=== PATIENT | female | born 1955 | race Caucasian/White ===

== ENCOUNTER 2020-03-17 14:44 | Inpatient (IN) ==
[2020-03-17] MEDS ORDERED: TUSSIONEX PENNKINETIC SUSP PO PRN (15:59)
[2020-03-17] MEDS ORDERED: LEVAQUIN PREMIX IV 500 MG 500 MG/100 ML BAG IV SCH (16:00)
[2020-03-17] MEDS ORDERED: VENTOLIN or PROAIR HFA ONE (16:28)
--- NOTE | 2020-03-17 16:50 | RAD ---
HISTORYSOB, COVID+STUDYCHEST, 1 VIEWCOMPARISONPrevious chest radiograph from 03/15/2020FINDINGSHeart size and pulmonary vasculature are normal. The previously described left midlung infiltrate is now more prominent. In addition there has been interval development of a faint infiltrate in the right perihilar region. No significant effusion on either side. Bony thorax is unremarkable.IMPRESSION1. Worsening left midlung infiltrate, now extending to the left base.2. Interval development of faint infiltrate in the right perihilar regionElectronically signed by: BLOSSOM RESTREPO (Mar 17, 2020 16:48:55)
[2020-03-17] MEDS ORDERED: PROVENTIL NEB TX 0.083% 2.5MG/ 3ML IN SCH (17:00)
[2020-03-17] MEDS ORDERED: ROBITUSSIN DM PO SCH (17:00)
[2020-03-17] MEDS ORDERED: FORTAZ or TAZICEF VIAL INJ 1 G in NS 100 ML IV + SPIKE MINIBAG* 100 ML IV SCH (17:00)
[2020-03-17 17:03] LABS: ABG ALLEN TEST POS; ABG BASE EXCESS 2.3 mmol/L (-2.0-2.0); ABG HCO3 24.5 mmol/L (22-26)
[2020-03-17 17:09] LABS: BASOPHILS % (AUTO) 0.2 % (0.2-1.0); EOSINOPHILS % (AUTO) 0.3 % (0.9-2.9); HEMATOCRIT 43.2 % (36.0-47.0); HEMOGLOBIN 14.7 g/dL (12.0-16.0); LYMPHOCYTES # (AUTO) 0.7 X10^3/uL (1.3-2.9); LYMPHOCYTES % (AUTO) 16.9 % (21.0-51.0); MEAN CORPUSCULAR HEMOGLOBIN 29.8 pg (27.0-34.0); MEAN CORPUSCULAR HGB CONC 33.9 g/dL (33.0-35.0); MEAN CORPUSCULAR VOLUME 87.7 fL (80.0-100.0); MEAN PLATELET VOLUME 9.7 fL (7.4-11.0); MONOCYTES # (AUTO) 0.3 x10^3/uL (0.3-0.8); MONOCYTES % (AUTO) 6.7 % (0.0-13.0); NEUTROPHILS % (AUTO) 75.9 % (42.0-75.0); PLATELET COUNT 136 X10^3/uL (150.0-450.0); RED BLOOD COUNT 4.93 X10^6/uL (3.5-5.4); RED CELL DISTRIBUTION WIDTH 14.6 % (11.6-16.5); WHITE BLOOD COUNT 3.9 X10^3/uL (3.6-10.0)
[2020-03-17 17:13] LABS: ALANINE AMINOTRANSFERASE 28 Units/L (12-78); ALBUMIN 3.6 g/dL (3.4-5.0); ALKALINE PHOSPHATASE 65 Units/L (46-116); ASPARTATE AMINO TRANSFERASE 27 Units/L (15-37); BLOOD UREA NITROGEN 7 mg/dL (7-18); CALCIUM 8.2 mg/dL (8.5-10.1); CARBON DIOXIDE 30.7 mmol/L (21-32); CHLORIDE 102 mmol/L (98-107); CREATININE 0.96 mg/dL (0.55-1.02); SODIUM 140 mmol/L (136-145); TOTAL PROTEIN 7.4 g/dL (6.4-8.2); eGFR NON BLACK RACES > 60 (>60)
[2020-03-17] MEDS: VENTOLIN or PROAIR HFA IN PRN ×2 (17:15→21:25)
[2020-03-17] MEDS ORDERED: NS 1/2 1000 ML IV 1,000 ML IV ONE (17:20)
[2020-03-17 17:42] LABS: ERYTHROCYTE SEDIMENTATION RATE 16 MM/HOUR (0-20)
[2020-03-17] MEDS: NS 1/2 1000 ML IV 1,000 ML IV SCH (17:44)
[2020-03-17] MEDS: TYLENOL 325 MG TAB PO PRN (18:36)
[2020-03-17] MEDS: PLAQUENIL PO SCH (20:50)
[2020-03-17] MEDS: ZITHROMAX INJ 500 MG VIAL 500 MG in NS 250 ML IV 250 ML IV SCH (20:50)
[2020-03-17] MEDS: TUSSIONEX PENNKINETIC SUSP PO SCH (20:55)
[2020-03-17] MEDS: TESSALON PERLES PO SCH (21:00)
[2020-03-17] MEDS ORDERED: TUSSIONEX PENNKINETIC SUSP PO SCH (22:00)
[2020-03-18] MEDS: NS 1/2 1000 ML IV 1,000 ML IV SCH ×2 (04:19→18:36)
[2020-03-18] MEDS: TYLENOL 325 MG TAB PO PRN ×2 (04:55→17:52)
[2020-03-18] MEDS: TESSALON PERLES PO SCH ×3 (05:00→21:21)
[2020-03-18 06:23] LABS: BASOPHILS % (AUTO) 0.4 % (0.2-1.0); EOSINOPHILS % (AUTO) 0.1 % (0.9-2.9); HEMATOCRIT 38.2 % (36.0-47.0); HEMOGLOBIN 13.2 g/dL (12.0-16.0); LYMPHOCYTES % (AUTO) 28.6 % (21.0-51.0); MEAN CORPUSCULAR HEMOGLOBIN 29.9 pg (27.0-34.0); MEAN CORPUSCULAR HGB CONC 34.6 g/dL (33.0-35.0); MEAN CORPUSCULAR VOLUME 86.4 fL (80.0-100.0); MEAN PLATELET VOLUME 9.7 fL (7.4-11.0); MONOCYTES # (AUTO) 0.2 x10^3/uL (0.3-0.8); MONOCYTES % (AUTO) 7.2 % (0.0-13.0); NEUTROPHILS # (AUTO) 2.1 x10^3/uL (2.2-4.8); NEUTROPHILS % (AUTO) 63.7 % (42.0-75.0); PLATELET COUNT 128 X10^3/uL (150.0-450.0); RED BLOOD COUNT 4.42 X10^6/uL (3.5-5.4); RED CELL DISTRIBUTION WIDTH 14.2 % (11.6-16.5); WHITE BLOOD COUNT 3.3 X10^3/uL (3.6-10.0)
[2020-03-18 06:34] LABS: ALANINE AMINOTRANSFERASE 23 Units/L (12-78); ALBUMIN 2.9 g/dL (3.4-5.0); ALKALINE PHOSPHATASE 50 Units/L (46-116); ASPARTATE AMINO TRANSFERASE 29 Units/L (15-37); BLOOD UREA NITROGEN 5 mg/dL (7-18); CALCIUM 7.5 mg/dL (8.5-10.1); CARBON DIOXIDE 26.3 mmol/L (21-32); CHLORIDE 103 mmol/L (98-107); COR CA(FOR HYPOALB) 8.4 mg/dL (8.5-10.1); CREATININE 0.93 mg/dL (0.55-1.02); SODIUM 139 mmol/L (136-145); TOTAL PROTEIN 6.2 g/dL (6.4-8.2); eGFR NON BLACK RACES > 60 (>60)
[2020-03-18] MEDS ORDERED: NS 100 ML IV + SPIKE MINIBAG* 100 ML IV ONE (08:38)
[2020-03-18] MEDS ORDERED: FORTAZ or TAZICEF VIAL INJ ONE (08:39)
[2020-03-18] MEDS: FORTAZ or TAZICEF VIAL INJ 1 G in NS 100 ML IV + SPIKE MINIBAG* 100 ML IV SCH ×3 (08:51→21:21)
[2020-03-18] MEDS: TUSSIONEX PENNKINETIC SUSP PO SCH ×2 (08:52→20:45)
[2020-03-18] MEDS: PLAQUENIL PO SCH ×2 (08:52→20:45)
[2020-03-18] MEDS: ZITHROMAX INJ 500 MG VIAL 500 MG in NS 250 ML IV 250 ML IV SCH (09:53)
[2020-03-18] MEDS: PAXIL PO SCH (11:23)
[2020-03-18] MEDS: SYNTHROID 75 mcg TAB PO SCH (11:23)
[2020-03-18] MEDS ORDERED: PROVENTIL NEB TX 0.083% 2.5MG/ 3ML NEB PRN (12:27)
[2020-03-18] MEDS ORDERED: PROVENTIL NEB TX 0.083% 2.5MG/ 3ML IN PRN (12:29)
[2020-03-18] MEDS ORDERED: PROVENTIL NEB TX 0.083% 2.5MG/ 3ML NEB SCH (13:00)
[2020-03-18] MEDS ORDERED: PROVENTIL NEB TX 0.083% 2.5MG/ 3ML IN SCH (13:00)
[2020-03-18] MEDS: VENTOLIN or PROAIR HFA IN SCH ×2 (13:35→17:10)
[2020-03-18] MEDS ORDERED: NS 1/2 1000 ML IV 1,000 ML IV ONE (18:35)
[2020-03-19] MEDS: TYLENOL 325 MG TAB PO PRN ×3 (02:25→15:30)
[2020-03-19] MEDS ORDERED: ROBITUSSIN AC ONE (02:33)
[2020-03-19] MEDS ORDERED: ROBITUSSIN (PLAIN) ONE (02:36)
[2020-03-19] MEDS: ROBITUSSIN (PLAIN) PO PRN ×2 (02:45→17:46)
[2020-03-19 05:23] LABS: BASOPHILS % (AUTO) 0.3 % (0.2-1.0); EOSINOPHILS % (AUTO) 0.2 % (0.9-2.9); HEMATOCRIT 37.8 % (36.0-47.0); HEMOGLOBIN 12.8 g/dL (12.0-16.0); LYMPHOCYTES # (AUTO) 0.8 X10^3/uL (1.3-2.9); LYMPHOCYTES % (AUTO) 17.4 % (21.0-51.0); MEAN CORPUSCULAR HEMOGLOBIN 29.5 pg (27.0-34.0); MEAN CORPUSCULAR HGB CONC 33.8 g/dL (33.0-35.0); MEAN CORPUSCULAR VOLUME 87.2 fL (80.0-100.0); MEAN PLATELET VOLUME 9.7 fL (7.4-11.0); MONOCYTES # (AUTO) 0.3 x10^3/uL (0.3-0.8); MONOCYTES % (AUTO) 5.2 % (0.0-13.0); NEUTROPHILS # (AUTO) 3.7 x10^3/uL (2.2-4.8); NEUTROPHILS % (AUTO) 76.9 % (42.0-75.0); PLATELET COUNT 132 X10^3/uL (150.0-450.0); RED BLOOD COUNT 4.33 X10^6/uL (3.5-5.4); RED CELL DISTRIBUTION WIDTH 14.4 % (11.6-16.5); WHITE BLOOD COUNT 4.8 X10^3/uL (3.6-10.0)
[2020-03-19 05:37] LABS: ALANINE AMINOTRANSFERASE 26 Units/L (12-78); ALBUMIN 2.7 g/dL (3.4-5.0); ALKALINE PHOSPHATASE 49 Units/L (46-116); ASPARTATE AMINO TRANSFERASE 33 Units/L (15-37); BLOOD UREA NITROGEN 4 mg/dL (7-18); CALCIUM 7.4 mg/dL (8.5-10.1); CARBON DIOXIDE 27.5 mmol/L (21-32); CHLORIDE 104 mmol/L (98-107); COR CA(FOR HYPOALB) 8.4 mg/dL (8.5-10.1); COR NA(FOR HYPERGLY) 139 mmol/L (136-145); CREATININE 0.77 mg/dL (0.55-1.02); SODIUM 139 mmol/L (136-145); TOTAL PROTEIN 6.1 g/dL (6.4-8.2); eGFR NON BLACK RACES > 60 (>60)
[2020-03-19] MEDS ORDERED: MICRO K EXTEN CAP 10 MEQ PO PRN (05:50)
[2020-03-19] MEDS ORDERED: K-RIDER 10 MEQ/NS 100 ML 10 MEQ/100 ML BAG IV PRN (05:50)
[2020-03-19] MEDS ORDERED: KLOR-CON PO PRN (05:50)
[2020-03-19] MEDS ORDERED: POTASSIUM CHL 60 MEQ/NS 0.45% 500 ML IV PRN (05:50)
[2020-03-19] MEDS ORDERED: POTASSIUM CHL 40 MEQ/NS 0.45% 500 ML IV PRN (05:50)
[2020-03-19] MEDS ORDERED: POTASSIUM CHLORIDE LIQ 20 MEQ UDC PO PRN (05:50)
[2020-03-19] MEDS: FORTAZ or TAZICEF VIAL INJ 1 G in NS 100 ML IV + SPIKE MINIBAG* 100 ML IV SCH ×3 (05:53→22:51)
[2020-03-19] MEDS: TESSALON PERLES PO SCH ×3 (05:54→22:34)
[2020-03-19] MEDS ORDERED: MAGNESIUM SULFATE 1 GRAM/100 mL PREMIX 2 G/200 ML BAG IV ONE (06:18)
[2020-03-19] MEDS ORDERED: K-DUR TAB 20 MEQ PO ONE (06:18)
[2020-03-19] MEDS: MAGNESIUM SULFATE 1 GRAM/100 mL PREMIX 1 GM/100 ML BAG IV PRN ×2 (06:24→07:30)
[2020-03-19] MEDS: K-DUR TAB 20 MEQ PO PRN (06:38)
[2020-03-19] MEDS: NS 1/2 1000 ML IV 1,000 ML IV SCH ×2 (06:39→20:47)
[2020-03-19] MEDS: PLAQUENIL PO SCH ×2 (08:20→22:50)
[2020-03-19] MEDS: PAXIL PO SCH (08:20)
[2020-03-19] MEDS: SYNTHROID 75 mcg TAB PO SCH (08:20)
[2020-03-19] MEDS: TUSSIONEX PENNKINETIC SUSP PO SCH ×2 (08:21→22:33)
[2020-03-19] MEDS: ZITHROMAX INJ 500 MG VIAL 500 MG in NS 250 ML IV 250 ML IV SCH (09:10)
[2020-03-19] MEDS ORDERED: NS 1/2 1000 ML IV 1,000 ML IV ONE (17:59)
[2020-03-19] MEDS: ZOFRAN INJ 4 MG VIAL IVP PRN (23:10)
[2020-03-20] MEDS ORDERED: RESTORIL CAP 15 MG PO ONE (00:13)
[2020-03-20] MEDS: RESTORIL CAP 15 MG PO PRN ×2 (00:40→21:49)
[2020-03-20] MEDS: FORTAZ or TAZICEF VIAL INJ 1 G in NS 100 ML IV + SPIKE MINIBAG* 100 ML IV SCH ×3 (05:37→21:48)
[2020-03-20] MEDS: TYLENOL 325 MG TAB PO PRN ×2 (05:38→15:45)
[2020-03-20] MEDS: TESSALON PERLES PO SCH ×3 (05:38→21:48)
[2020-03-20 06:57] LABS: BASOPHILS % (AUTO) 0.2 % (0.2-1.0); HEMATOCRIT 39.2 % (36.0-47.0); HEMOGLOBIN 13.4 g/dL (12.0-16.0); LYMPHOCYTES % (AUTO) 16.3 % (21.0-51.0); MEAN CORPUSCULAR HEMOGLOBIN 29.6 pg (27.0-34.0); MEAN CORPUSCULAR HGB CONC 34.1 g/dL (33.0-35.0); MEAN CORPUSCULAR VOLUME 86.7 fL (80.0-100.0); MEAN PLATELET VOLUME 9.5 fL (7.4-11.0); MONOCYTES # (AUTO) 0.3 x10^3/uL (0.3-0.8); MONOCYTES % (AUTO) 4.7 % (0.0-13.0); NEUTROPHILS # (AUTO) 4.8 x10^3/uL (2.2-4.8); NEUTROPHILS % (AUTO) 78.8 % (42.0-75.0); PLATELET COUNT 155 X10^3/uL (150.0-450.0); RED BLOOD COUNT 4.52 X10^6/uL (3.5-5.4); RED CELL DISTRIBUTION WIDTH 14.7 % (11.6-16.5); WHITE BLOOD COUNT 6.1 X10^3/uL (3.6-10.0)
--- NOTE | 2020-03-20 07:04 | RAD ---
HISTORYPNEUMONIASTUDYSingle-view [id number]/23/2020FINDINGSThe trachea is midline. The cardiac silhouette is accentuated by portable technique. Patchy infiltrates throughout the right and left shanika thorax are observed a markedly increased when compared to prior examination consistent with atypical multifocal pneumonia.. The bony thorax is unremarkable.IMPRESSIONWorsening atypical multifocal pneumonia with patchy infiltrates throughout the right and left hemothorax.Electronically signed by: HAYDEN NOLEN (Mar 20, 2020 07:03:03)
[2020-03-20 07:05] LABS: ALANINE AMINOTRANSFERASE 24 Units/L (12-78); ALBUMIN 2.8 g/dL (3.4-5.0); ALKALINE PHOSPHATASE 66 Units/L (46-116); ASPARTATE AMINO TRANSFERASE 40 Units/L (15-37); BLOOD UREA NITROGEN 4 mg/dL (7-18); CALCIUM 7.5 mg/dL (8.5-10.1); CARBON DIOXIDE 26.3 mmol/L (21-32); CHLORIDE 102 mmol/L (98-107); COR CA(FOR HYPOALB) 8.5 mg/dL (8.5-10.1); CREATININE 0.91 mg/dL (0.55-1.02); MAGNESIUM 1.9 mg/dL (1.7-2.9); SODIUM 137 mmol/L (136-145); TOTAL PROTEIN 6.8 g/dL (6.4-8.2); eGFR NON BLACK RACES > 60 (>60)
[2020-03-20 08:43] LABS: ABG ALLEN TEST POS; ABG HCO3 27.1 mmol/L (22-26)
[2020-03-20] MEDS: PAXIL PO SCH (09:10)
[2020-03-20] MEDS: ZITHROMAX INJ 500 MG VIAL 500 MG in NS 250 ML IV 250 ML IV SCH (09:10)
[2020-03-20] MEDS: TUSSIONEX PENNKINETIC SUSP PO SCH ×2 (09:10→21:48)
[2020-03-20] MEDS: PLAQUENIL PO SCH ×2 (09:10→21:48)
[2020-03-20] MEDS: SYNTHROID 75 mcg TAB PO SCH (09:10)
[2020-03-20] MEDS: NS 1/2 1000 ML IV 1,000 ML IV SCH ×2 (10:15→13:04)
[2020-03-20] MEDS: K-DUR TAB 20 MEQ PO PRN (10:40)
[2020-03-20] MEDS: MAGNESIUM SULFATE 1 GRAM/100 mL PREMIX 1 GM/100 ML BAG IV PRN ×2 (12:00→15:50)
[2020-03-20] MEDS ORDERED: NS 1/2 1000 ML IV 1,000 ML IV ONE (12:51)
[2020-03-20] MEDS: ROBITUSSIN (PLAIN) PO PRN (16:05)
[2020-03-20] MEDS: COLACE CAP 100 MG PO SCH (21:48)
--- NOTE | 2020-03-20 21:55 | DR.UPDATE ---
H&P Update History and Physical Update: History and Physical reviewed and patient examined. Changes noted: Yes with the following: PRESENTED WITH COMPLAINTS WITH PERSISTENT COUGH AND MODERATE SHORTNESS OF BREATH. SHE WAS TESTED FOR COVID-19 APPROXIMATELY 2 WEEKS AGO AND TESTED NEGATIVE. SHE WAS RETESTED ONE WEEK AGO AND WAS REPORTED TO BE POSITIVE. SHE IS EMPLOYED AT A [employer] AND REPORTS BEING AROUND OTHER POSTIVE CO-WORKERS. A CHEST XRAY WAS OBTAINED ON 03/15 AND REVEALED A LEFT MIDLUNG INFILTRATE. SHE WAS ADMITTED FOR FURTHER EVALUATION AND TREATMENT TODAY AFTER SYMPTOMS PERSISTED. ON ARRIVAL, VITALS WERE 101.1-96-17-92%-129/70. LABS WERE OBTAINED. ABNORMAL LAB VALUES INCLUDE THE FOLLOWING: PLT COUNT 136, CALCIUM 8.2, CRP 84.0. ABG REVEALED: PH 7.520, PC02 30.0, P02 66.0, HC03 24.5, 02 SATURATION 95.0, BASE EXCESS 2.3. BLOOD CULTURE ARE PENDING. A CHEST XRAY WAS OBTAINED AND REVEALED: WORSENING LEFT MID-LUNG INFILTRATE, NOW EXTENDNG TO THE LEFT BASE. INTERVAN DEVELOPMENT OF FAINT INFILTRATE IN THE RIGHT PERIHILAR REGION. SHE WAS STARTED ON 1/2NS AT 75 ML/HR, AZITHROMYCIN 500MG IV DAILY, FORTAZ 1G IV TID, PLAQUENIL 200MG PO BID, ALBUTEROL 2 PUFFS QID, AND HOME MEDICATIONS WERE RESUMED. OTHERWISE, WE WILL FOLLOW UP WITH AM LABS AND CONTINUE TO MONITOR. Prescription drug monitoring program results: PDMP was not reviewed H&P Reviewed: Yes Patient was examined?: Yes
[2020-03-21] MEDS: TYLENOL 325 MG TAB PO PRN (01:09)
[2020-03-21] MEDS: ROBITUSSIN (PLAIN) PO PRN (01:10)
[2020-03-21] MEDS: TESSALON PERLES PO SCH ×3 (05:25→21:33)
[2020-03-21] MEDS: FORTAZ or TAZICEF VIAL INJ 1 G in NS 100 ML IV + SPIKE MINIBAG* 100 ML IV SCH ×3 (05:25→22:04)
--- NOTE | 2020-03-21 06:02 | RAD ---
STUDY: CHEST, 1 VIEWCOMPARISON: March 20, 2020HISTORY: PNEUMONIAFINDINGS:There is persistent diffuse alveolar airspace disease throughout the right left lung which is unchanged from the prior study and worrisome for ARDS. No pleural effusion or gross pneumothorax is seen. The cardiomediastinal contour is stable.IMPRESSION:Overall, no significant change from prior study.Electronically signed by: Jeffrey Barros (Mar 21, 2020 06:01:37)
[2020-03-21 06:35] LABS: BASOPHILS % (AUTO) 0.2 % (0.2-1.0); HEMATOCRIT 39.5 % (36.0-47.0); HEMOGLOBIN 13.3 g/dL (12.0-16.0); LYMPHOCYTES # (AUTO) 0.8 X10^3/uL (1.3-2.9); LYMPHOCYTES % (AUTO) 8.6 % (21.0-51.0); MEAN CORPUSCULAR HEMOGLOBIN 29.4 pg (27.0-34.0); MEAN CORPUSCULAR HGB CONC 33.6 g/dL (33.0-35.0); MEAN CORPUSCULAR VOLUME 87.3 fL (80.0-100.0); MEAN PLATELET VOLUME 9.5 fL (7.4-11.0); MONOCYTES # (AUTO) 0.4 x10^3/uL (0.3-0.8); MONOCYTES % (AUTO) 3.8 % (0.0-13.0); NEUTROPHILS # (AUTO) 8.2 x10^3/uL (2.2-4.8); NEUTROPHILS % (AUTO) 87.4 % (42.0-75.0); PLATELET COUNT 164 X10^3/uL (150.0-450.0); RED BLOOD COUNT 4.53 X10^6/uL (3.5-5.4); RED CELL DISTRIBUTION WIDTH 14.6 % (11.6-16.5); WHITE BLOOD COUNT 9.3 X10^3/uL (3.6-10.0)
[2020-03-21 06:59] LABS: ALANINE AMINOTRANSFERASE 27 Units/L (12-78); ALBUMIN 2.5 g/dL (3.4-5.0); ALKALINE PHOSPHATASE 71 Units/L (46-116); ASPARTATE AMINO TRANSFERASE 45 Units/L (15-37); BLOOD UREA NITROGEN 5 mg/dL (7-18); CALCIUM 7.5 mg/dL (8.5-10.1); CARBON DIOXIDE 27.6 mmol/L (21-32); CHLORIDE 103 mmol/L (98-107); COR CA(FOR HYPOALB) 8.7 mg/dL (8.5-10.1); CREATININE 0.84 mg/dL (0.55-1.02); MAGNESIUM 2.5 mg/dL (1.7-2.9); SODIUM 138 mmol/L (136-145); TOTAL PROTEIN 6.6 g/dL (6.4-8.2); eGFR NON BLACK RACES > 60 (>60)
[2020-03-21 07:39] LABS: ERYTHROCYTE SEDIMENTATION RATE 43 MM/HOUR (0-20)
[2020-03-21] MEDS: TUSSIONEX PENNKINETIC SUSP PO SCH ×2 (08:00→21:08)
[2020-03-21] MEDS: ZITHROMAX INJ 500 MG VIAL 500 MG in NS 250 ML IV 250 ML IV SCH (08:00)
[2020-03-21] MEDS: PLAQUENIL PO SCH ×2 (08:00→21:08)
[2020-03-21] MEDS: SYNTHROID 75 mcg TAB PO SCH (08:00)
[2020-03-21] MEDS: PAXIL PO SCH (08:00)
[2020-03-21] MEDS ORDERED: ASCORBIC ACID INJ MULTI-DOSE VIAL IM SCH (09:30)
[2020-03-21] MEDS ORDERED: VITAMIN A PO SCH (09:30)
[2020-03-21] MEDS: NS 1/2 1000 ML IV 1,000 ML IV SCH ×2 (09:55→13:33)
--- NOTE | 2020-03-21 11:09 | PCM.PROG ---
Progress Note - Progress Note for Day of Date of Exam: 03/19/20 - Subjective Subjective: WAS ADMITTED FOR PNEUMONIA. SHE IS COVID-19 POSITIVE. TODAY, SHE IS ALERT AND ORIENTED, LYING IN BED ON MORNING ROUNDS. SHE CONTINUES WITH COMPLAINTS OF COUGH AND SHORTNESS OF BREATH. SHE REPORTS THAT SHORTNESS OF BREATH IS WORSE UPON AMBULATING. SHE CONTINUES TO BE FEBRILE AND ALSO REPORTS A DECREASED APPETITE AND NAUSEA. ON EXAMINATION, HEART IS REGULAR IN RATE AND RHYTHM. BILATERA LUNGS ARE NOTED WITH SCATTERED WHEEZING AND RHONCHI. ABDOMEN IS ROUND, SOFT, AND NON-TENDER WITH NORMAL BOWEL SOUNDS IN ALL QUADRANTS. HER VITALS THIS MORNING ARE: 100.8-82-16-96%(HEATED HIGH FLOW),113/58. LABS WERE OBTAINED. ABNORMAL LAB VALUES INCLUDE THE FOLLOWING: PLT COUNT 132, POTASSIUM 3.0, BUN 4, GLUCOSE 111, CALCIUM 7.4, TOTAL BILI 0.10, TOTAL PROTEIN 6.1, ALBUMIN 2.7. BLOOD CULTURES ARE PENDING. SHE IS CURRENTLY RECEIVING 1/2NS AT 75 ML/HR, AZITHROMYCIN 500MG IV DAILY, FORTAZ 1G IV TID, PLAQUENIL 200MG PO BID, ALBUTEROL 2 PUFFS QID, AND HOME MEDICATIONS WERE RESUMED. WE WILL START THE POTASSIUM AND MAGNESIUM PROTOCOLS, ZOFRAN 4MG IV Q6H PRN, AND ROBITUSSIM TODAY. OTHERWISE, WE PLAN TO FOLLOW UP WITH AM LABS AND CHEST XRAY AND CONTINUE TO MONITOR. - Past Medical Family Social History Past Med/Fam/Surg Hx: No changes since H&P Allergies: Allergies No Known Drug Allergies Allergy (Verified 03/15/20 22:35) - Review of Systems ROS: No change since H&P - Vital Signs and I&O's Vital Signs: Temperature 99.5 F Pulse Rate 80 Respiratory Rate 27 Blood Pressure 138/94 O2 Sat by Pulse Oximetry 92 Intake and Output: Intake & Output 03/18/20 03/19/20 03/20/20 03/21/20 11:59 11:59 11:59 11:59 Intake Total 1884 / 1884 2950 / 2950 2150 / 2150 1790 / 1790 Output Total 600 / 600 1200 / 1200 Balance 1884 / 1885 2350 / 2350 950 / 950 1790 / 1790 - Physical Exam Oriented: Normal Eyes: Normal Ear: Normal Nose: Normal Throat: Normal Respiratory: Generalized, Wheezes Cardiovascular: Normal. negative: S3, S4, Murmur : Normal Auscultation: Bowel Sounds: Normal Palpation: Normal Tenderness: Normal Skin: Normal Musculoskeletal: Normal Psychiatric: Normal Mood Description: Calm Affect: Normal Speech Pattern: Clear, Appropriate - Laboratory and Diagnostics Result Diagrams: 03/21/20 05:48 03/21/20 05:48 Labs: 03/17/20 16:42 Blood Blood Culture - Preliminary 03/17/20 16:40 Blood Blood Culture - Preliminary Laboratory WBC 9.3 X10^3/uL (3.6-10.0) 03/21/20 05:48 RBC 4.53 X10^6/uL (3.5-5.4) 03/21/20 05:48 Hgb 13.3 g/dL (12.0-16.0) 03/21/20 05:48 Hct 39.5 % (36.0-47.0) 03/21/20 05:48 MCV 87.3 fL (80.0-100.0) 03/21/20 05:48 MCH 29.4 pg (27.0-34.0) 03/21/20 05:48 MCHC 33.6 g/dL (33.0-35.0) 03/21/20 05:48 RDW 14.6 % (11.6-16.5) 03/21/20 05:48 Plt Count 164 X10^3/uL (150.0-450.0) 03/21/20 05:48 MPV 9.5 fL (7.4-11.0) 03/21/20 05:48 Neut % (Auto) 87.4 % (42.0-75.0) H 03/21/20 05:48 Lymph % (Auto) 8.6 % (21.0-51.0) L 03/21/20 05:48 [place] % (Auto) 3.8 % (0.0-13.0) 03/21/20 05:48 Eos % (Auto) 0.0 % (0.9-2.9) L 03/21/20 05:48 Baso % (Auto) 0.2 % (0.2-1.0) 03/21/20 05:48 Neut # (Auto) 8.2 x10^3/uL (2.2-4.8) H 03/21/20 05:48 Lymph # (Auto) 0.8 X10^3/uL (1.3-2.9) L 03/21/20 05:48 [place] # (Auto) 0.4 x10^3/uL (0.3-0.8) 03/21/20 05:48 Eos # (Auto) 0.0 x10^3/uL (0.0-0.2) 03/21/20 05:48 Baso # (Auto) 0.0 X10^3/uL (0.0-0.1) 03/21/20 05:48 Absolute Nucleated RBC 0.0 /100WBC 03/21/20 05:48 ESR 43 MM/HOUR (0-20) H 03/21/20 05:48 Sample Site Right radial 03/20/20 08:35 ABG pH 7.450 (7.35-7.45) 03/20/20 08:35 ABG pCO2 39.0 mmHg (35.0-45.0) 03/20/20 08:35 ABG pO2 75.0 mmHg (80.0-100.0) L 03/20/20 08:35 ABG HCO3 27.1 mmol/L (22-26) H 03/20/20 08:35 ABG O2 Saturation 96.0 % (90-100) 03/20/20 08:35 ABG Base Excess 3.0 mmol/L (-2.0-2.0) H 03/20/20 08:35 Cabrera Test Pos 03/20/20 08:35 A-a Gradient 233.0 mmHg 03/20/20 08:35 FiO2 50.0 03/20/20 08:35 Blood Gas Comments Diego well aw 03/20/20 08:35 Sodium 138 mmol/L (136-145) 03/21/20 05:48 Corrected Sodium TNP 03/21/20 05:48 Potassium 4.1 mmol/L (3.5-5.1) 03/21/20 05:48 Chloride 103 mmol/L (98-107) 03/21/20 05:48 Carbon Dioxide 27.6 mmol/L (21-32) 03/21/20 05:48 BUN 5 mg/dL (7-18) L 03/21/20 05:48 Creatinine 0.84 mg/dL (0.55-1.02) 03/21/20 05:48 Est GFR (MDRD) Af Amer > 60 (>60) 03/21/20 05:48 Est GFR (MDRD) Non-Af > 60 (>60) 03/21/20 05:48 Glucose 105 mg/dL (65-99) H 03/21/20 05:48 Calcium 7.5 mg/dL (8.5-10.1) L 03/21/20 05:48 Corrected Calcium 8.7 mg/dL (8.5-10.1) 03/21/20 05:48 Magnesium 2.5 mg/dL (1.7-2.9) 03/21/20 05:48 Total Bilirubin 0.30 mg/dL (0.2-1.0) 03/21/20 05:48 AST 45 Units/L (15-37) H 03/21/20 05:48 ALT 27 Units/L (12-78) 03/21/20 05:48 Alkaline Phosphatase 71 Units/L (46-116) 03/21/20 05:48 C-Reactive Protein 202.30 mg/L (0-3.0) H 03/21/20 05:48 Total Protein 6.6 g/dL (6.4-8.2) 03/21/20 05:48 Albumin 2.5 g/dL (3.4-5.0) L 03/21/20 05:48 Globulin 4.1 g/dL (2.5-4.5) 03/21/20 05:48 Albumin/Globulin Ratio 0.6 Ratio (1.1-2.1) L 03/21/20 05:48 - Plan (1) COVID-19 virus infection Status: Acute Plan: 1/2NS AT 75 ML/HR, AZITHROMYCIN 500MG IV DAILY, FORTAZ 1G IV TID, PLAQUENIL 200MG PO BID, ALBUTEROL 2 PUFFS QID, AND HOME MEDICATIONS WERE RESUMED (2) Pneumonia Status: Acute Qualifiers: Pneumonia type: due to unspecified organism Laterality: bilateral Lung location: unspecified part of lung Qualified Code(s): J18.9 - Pneumonia, unspecified organism Plan: 1/2NS AT 75 ML/HR, AZITHROMYCIN 500MG IV DAILY, FORTAZ 1G IV TID, PLAQUENIL 200MG PO BID, ALBUTEROL 2 PUFFS QID, AND HOME MEDICATIONS WERE RESUMED
[2020-03-21] MEDS: THIAMINE HCL INJ IM SCH ×2 (11:17→21:08)
[2020-03-21] MEDS: SOLU-Medrol 40 MG VIAL IVP SCH ×4 (11:18→21:33)
[2020-03-21] MEDS: VITAMIN D (1.25MG) PO SCH (11:18)
[2020-03-21] MEDS: ZINC SULFATE PO SCH ×2 (11:19→21:09)
[2020-03-21] MEDS: DUONEB 0.5 MG/3 MG (3 mL) NEB SCH ×4 (11:33→21:41)
[2020-03-21] MEDS ORDERED: DULCOLAX SUPPOSITORY 10 MG RECTAL ONE (11:39)
[2020-03-21] MEDS ORDERED: DULCOLAX SUPPOSITORY 10 MG ONE (11:40)
[2020-03-21 12:06] LABS: ABG BASE EXCESS 0.1 mmol/L (-2.0-2.0); ABG HCO3 24.7 mmol/L (22-26)
[2020-03-21 12:07] LABS: ABG ALLEN TEST POS
[2020-03-21] MEDS: ZOFRAN INJ 4 MG VIAL IVP PRN (12:53)
[2020-03-21] MEDS ORDERED: NS 1/2 1000 ML IV 1,000 ML IV ONE (13:28)
[2020-03-21] MEDS: VENTOLIN or PROAIR HFA IN SCH (13:32)
[2020-03-21] MEDS ORDERED: FLEET ENEMA ADULT PR ONE (14:18)
[2020-03-21] MEDS: VITAMIN A PO SCH ×2 (15:00→21:09)
--- NOTE | 2020-03-21 16:04 | PCM.PROG ---
Progress Note - Progress Note for Day of Date of Exam: 03/20/20 - Subjective Subjective: WAS ADMITTED FOR PNEUMONIA. SHE IS COVID-19 POSITIVE. TODAY, SHE IS ALERT AND ORIENTED, LYING IN BED ON MORNING ROUNDS. SHE CONTINUES WITH COMPLAINTS OF COUGH AND SHORTNESS OF BREATH. SHE REPORTS THAT SHORTNESS OF BREATH AND COUGH SEEMS TO BE WORSE TODAY. SHE CONTINUES TO BE FEBRILE AND ALSO REPORTS GENERALIZED WEAKNESS AND CONSTIPATION. ON EXAMINATION, HEART IS REGULAR IN RATE AND RHYTHM. BILATERAL LUNGS ARE NOTED WITH SCATTERED WHEEZING AND RHONCHI. ABDOMEN IS ROUND, SOFT, AND NON-TENDER WITH NORMAL BOWEL SOUNDS IN ALL QUADRANTS. HER VITALS THIS MORNING ARE: 98.7-76-24-95%9(VENTURI MASK)-118/58. LABS WERE OBTAINED. ABNORMAL LAB VALUES INCLUDE THE FOLLOWING: BUN 4, CALCIUM 7 .5, AST 40, ALBUMIN 2.8. BLOOD CULTURES ARE PENDING. A CHEST XRAY WAS OBTAINED AND REVEALED: Worsening atypical multifocal pneumonia with patchy infiltrates throughout the right and left hemothorax. SHE IS CURRENTLY RECEIVING 1/2NS AT 75 ML/HR, AZITHROMYCIN 500MG IV DAILY, FORTAZ 1G IV TID, PLAQUENIL 200MG PO BID, ALBUTEROL 2 PUFFS QID, ROBITUSSIN QID, ZOFRAN 4MG IV Q6H PRN, THE POTASSIUM AND MAGNESIUM PROTOCOLS, AND HOME MEDICATIONS WERE RESUMED. WE WILL START COLACE 100MG PO HS AND OBTAIN AN ABG. OTHERWISE, WE PLAN TO FOLLOW UP WITH AM LABS AND CHEST XRAY AND CONTINUE TO MONITOR. - Past Medical Family Social History Past Med/Fam/Surg Hx: No changes since H&P Allergies: Allergies No Known Drug Allergies Allergy (Verified 03/15/20 22:35) - Review of Systems ROS: No change since H&P - Vital Signs and I&O's Vital Signs: Temperature 99.5 F Pulse Rate 82 Respiratory Rate 27 Blood Pressure 138/94 O2 Sat by Pulse Oximetry 95 Intake and Output: Intake & Output 03/19/20 03/20/20 03/21/20 03/22/20 11:59 11:59 11:59 11:59 Intake Total 2950 / 2950 2150 / 2150 1790 / 1790 Output Total 600 / 600 1200 / 1200 Balance 2350 / 2350 950 / 950 1790 / 1790 - Physical Exam Oriented: Normal Eyes: Normal Ear: Normal Nose: Normal Throat: Normal Respiratory: Generalized, Wheezes Cardiovascular: Normal. negative: S3, S4, Murmur : Normal Auscultation: Bowel Sounds: Normal Palpation: Normal Tenderness: Normal Skin: Normal Musculoskeletal: Normal Psychiatric: Normal Mood Description: Calm Affect: Normal Speech Pattern: Clear, Appropriate - Laboratory and Diagnostics Result Diagrams: 03/21/20 05:48 03/21/20 05:48 Labs: 03/17/20 16:42 Blood Blood Culture - Preliminary 03/17/20 16:40 Blood Blood Culture - Preliminary Laboratory WBC 9.3 X10^3/uL (3.6-10.0) 03/21/20 05:48 RBC 4.53 X10^6/uL (3.5-5.4) 03/21/20 05:48 Hgb 13.3 g/dL (12.0-16.0) 03/21/20 05:48 Hct 39.5 % (36.0-47.0) 03/21/20 05:48 MCV 87.3 fL (80.0-100.0) 03/21/20 05:48 MCH 29.4 pg (27.0-34.0) 03/21/20 05:48 MCHC 33.6 g/dL (33.0-35.0) 03/21/20 05:48 RDW 14.6 % (11.6-16.5) 03/21/20 05:48 Plt Count 164 X10^3/uL (150.0-450.0) 03/21/20 05:48 MPV 9.5 fL (7.4-11.0) 03/21/20 05:48 Neut % (Auto) 87.4 % (42.0-75.0) H 03/21/20 05:48 Lymph % (Auto) 8.6 % (21.0-51.0) L 03/21/20 05:48 [place] % (Auto) 3.8 % (0.0-13.0) 03/21/20 05:48 Eos % (Auto) 0.0 % (0.9-2.9) L 03/21/20 05:48 Baso % (Auto) 0.2 % (0.2-1.0) 03/21/20 05:48 Neut # (Auto) 8.2 x10^3/uL (2.2-4.8) H 03/21/20 05:48 Lymph # (Auto) 0.8 X10^3/uL (1.3-2.9) L 03/21/20 05:48 [place] # (Auto) 0.4 x10^3/uL (0.3-0.8) 03/21/20 05:48 Eos # (Auto) 0.0 x10^3/uL (0.0-0.2) 03/21/20 05:48 Baso # (Auto) 0.0 X10^3/uL (0.0-0.1) 03/21/20 05:48 Absolute Nucleated RBC 0.0 /100WBC 03/21/20 05:48 ESR 43 MM/HOUR (0-20) H 03/21/20 05:48 Sample Site Lr 03/21/20 12:01 ABG pH 7.410 (7.35-7.45) 03/21/20 12:01 ABG pCO2 39.0 mmHg (35.0-45.0) 03/21/20 12:01 ABG pO2 93.0 mmHg (80.0-100.0) 03/21/20 12:01 ABG HCO3 24.7 mmol/L (22-26) 03/21/20 12:01 ABG O2 Saturation 97.0 % (90-100) 03/21/20 12:01 ABG Base Excess 0.1 mmol/L (-2.0-2.0) 03/21/20 12:01 Cabrera Test Pos 03/21/20 12:01 A-a Gradient 215.0 mmHg 03/21/20 12:01 FiO2 50.0 03/21/20 12:01 Blood Gas Comments Diego well lj/gmb 03/21/20 12:01 Sodium 138 mmol/L (136-145) 03/21/20 05:48 Corrected Sodium TNP 03/21/20 05:48 Potassium 4.1 mmol/L (3.5-5.1) 03/21/20 05:48 Chloride 103 mmol/L (98-107) 03/21/20 05:48 Carbon Dioxide 27.6 mmol/L (21-32) 03/21/20 05:48 BUN 5 mg/dL (7-18) L 03/21/20 05:48 Creatinine 0.84 mg/dL (0.55-1.02) 03/21/20 05:48 Est GFR (MDRD) Af Amer > 60 (>60) 03/21/20 05:48 Est GFR (MDRD) Non-Af > 60 (>60) 03/21/20 05:48 Glucose 105 mg/dL (65-99) H 03/21/20 05:48 Calcium 7.5 mg/dL (8.5-10.1) L 03/21/20 05:48 Corrected Calcium 8.7 mg/dL (8.5-10.1) 03/21/20 05:48 Magnesium 2.5 mg/dL (1.7-2.9) 03/21/20 05:48 Total Bilirubin 0.30 mg/dL (0.2-1.0) 03/21/20 05:48 AST 45 Units/L (15-37) H 03/21/20 05:48 ALT 27 Units/L (12-78) 03/21/20 05:48 Alkaline Phosphatase 71 Units/L (46-116) 03/21/20 05:48 C-Reactive Protein 202.30 mg/L (0-3.0) H 03/21/20 05:48 Total Protein 6.6 g/dL (6.4-8.2) 03/21/20 05:48 Albumin 2.5 g/dL (3.4-5.0) L 03/21/20 05:48 Globulin 4.1 g/dL (2.5-4.5) 03/21/20 05:48 Albumin/Globulin Ratio 0.6 Ratio (1.1-2.1) L 03/21/20 05:48 - Plan (1) COVID-19 virus infection Status: Acute Plan: 1/2NS AT 75 ML/HR, AZITHROMYCIN 500MG IV DAILY, FORTAZ 1G IV TID, PLAQUENIL 200MG PO BID, ALBUTEROL 2 PUFFS QID, AND HOME MEDICATIONS WERE RESUMED (2) Pneumonia Status: Acute Qualifiers: Pneumonia type: due to unspecified organism Laterality: bilateral Lung location: unspecified part of lung Qualified Code(s): J18.9 - Pneumonia, unspecified organism Plan: 1/2NS AT 75 ML/HR, AZITHROMYCIN 500MG IV DAILY, FORTAZ 1G IV TID, PLAQUENIL 200MG PO BID, ALBUTEROL 2 PUFFS QID, AND HOME MEDICATIONS WERE RESUMED
[2020-03-21] MEDS: NS 100 ML IV 100 ML with ASCORBIC ACID INJ MULTI-DOSE VIAL 1,500 MG IV SCH ×4 (16:15→21:08)
[2020-03-21] MEDS ORDERED: NS 100 ML IV + SPIKE MINIBAG* 100 ML IV ONE (17:08)
[2020-03-21] MEDS: ESTRADIOL TOP SCH (19:19)
[2020-03-21] MEDS: COLACE CAP 100 MG PO SCH (21:07)
[2020-03-21] MEDS: RESTORIL CAP 15 MG PO PRN (21:34)
[2020-03-22] MEDS: NS 100 ML IV 100 ML with ASCORBIC ACID INJ MULTI-DOSE VIAL 1,500 MG IV SCH ×8 (03:07→21:11)
[2020-03-22] MEDS: ROBITUSSIN (PLAIN) PO PRN (03:08)
[2020-03-22] MEDS: VITAMIN A PO SCH ×4 (03:08→21:12)
--- NOTE | 2020-03-22 05:49 | RAD ---
STUDY: CHEST, 1 VIEWCOMPARISON: March 21, 2020HISTORY: SOBFINDINGS:Multifocal alveolar airspace disease throughout the right and left lung is not significantly changed from the prior study. This cardiomediastinal contour is stable. No pleural effusion or pneumothorax is seen.IMPRESSION:There is no significant change from prior study.Electronically signed by: Jeffrey Barros (Mar 22, 2020 05:48:41)
[2020-03-22] MEDS: FORTAZ or TAZICEF VIAL INJ 1 G in NS 100 ML IV + SPIKE MINIBAG* 100 ML IV SCH ×3 (05:51→22:37)
[2020-03-22] MEDS: SOLU-Medrol 40 MG VIAL IVP SCH ×3 (05:52→22:37)
[2020-03-22] MEDS: TESSALON PERLES PO SCH ×3 (05:52→22:37)
[2020-03-22] MEDS: DUONEB 0.5 MG/3 MG (3 mL) NEB SCH ×5 (06:14→21:00)
[2020-03-22 06:33] LABS: BASOPHILS % (AUTO) 0.2 % (0.2-1.0); HEMATOCRIT 40.6 % (36.0-47.0); HEMOGLOBIN 13.8 g/dL (12.0-16.0); LYMPHOCYTES # (AUTO) 0.4 X10^3/uL (1.3-2.9); LYMPHOCYTES % (AUTO) 4.7 % (21.0-51.0); MEAN CORPUSCULAR HEMOGLOBIN 29.7 pg (27.0-34.0); MEAN CORPUSCULAR HGB CONC 34.1 g/dL (33.0-35.0); MEAN CORPUSCULAR VOLUME 87.1 fL (80.0-100.0); MEAN PLATELET VOLUME 9.3 fL (7.4-11.0); MONOCYTES # (AUTO) 0.3 x10^3/uL (0.3-0.8); MONOCYTES % (AUTO) 3.2 % (0.0-13.0); NEUTROPHILS # (AUTO) 8.4 x10^3/uL (2.2-4.8); NEUTROPHILS % (AUTO) 91.9 % (42.0-75.0); PLATELET COUNT 218 X10^3/uL (150.0-450.0); RED BLOOD COUNT 4.67 X10^6/uL (3.5-5.4); RED CELL DISTRIBUTION WIDTH 14.4 % (11.6-16.5); WHITE BLOOD COUNT 9.1 X10^3/uL (3.6-10.0)
[2020-03-22 06:52] LABS: ALANINE AMINOTRANSFERASE 29 Units/L (12-78); ALBUMIN 2.6 g/dL (3.4-5.0); ALKALINE PHOSPHATASE 73 Units/L (46-116); ASPARTATE AMINO TRANSFERASE 39 Units/L (15-37); BLOOD UREA NITROGEN 7 mg/dL (7-18); CALCIUM 7.9 mg/dL (8.5-10.1); CHLORIDE 103 mmol/L (98-107); COR NA(FOR HYPERGLY) 142 mmol/L (136-145); CREATININE 0.67 mg/dL (0.55-1.02); SODIUM 141 mmol/L (136-145); TOTAL PROTEIN 7.1 g/dL (6.4-8.2); eGFR NON BLACK RACES > 60 (>60)
[2020-03-22 07:12] LABS: BAND NEUTROPHILS % 5 % (0-10); PLATELET MORPHOLOGY COMMENT NORMAL (NORMAL)
[2020-03-22 07:34] LABS: ERYTHROCYTE SEDIMENTATION RATE 55 MM/HOUR (0-20)
[2020-03-22] MEDS ORDERED: NS 1/2 1000 ML IV 1,000 ML IV ONE (08:14)
--- NOTE | 2020-03-22 08:39 | PCM.PROG ---
Progress Note - Progress Note for Day of Date of Exam: 03/21/20 - Subjective Subjective: WAS ADMITTED FOR PNEUMONIA. SHE IS COVID-19 POSITIVE. TODAY, SHE IS ALERT AND ORIENTED, LYING IN BED ON MORNING ROUNDS. SHE CONTINUES WITH COMPLAINTS OF COUGH AND SHORTNESS OF BREATH. HER BREATHING APPEARS TO BE MORE LABORED THIS MORNING THAN IT HAS BEEN. SHE CONTINUES WITH CONSTIPATION AND WEAKNESS. ON EXAMINATION, HEART IS REGULAR IN RATE AND RHYTHM. BILATERAL LUNGS ARE NOTED WITH SCATTERED WHEEZING AND RHONCHI. ABDOMEN IS ROUND, SOFT, AND NON- TENDER WITH NORMAL BOWEL SOUNDS IN ALL QUADRANTS. HER VITALS THIS MORNING ARE: 100.0-95-12-94%(VENTURI MASK)-142/70. LABS WERE OBTAINED. ABNORMAL LAB VALUES INCLUDE THE FOLLOWING: BUN 5, GLUCOSE 105, CALCIUM 7.5, AST 45, CRP 202.30, A LBUMIN 2.5. BLOOD CULTURES ARE PENDING. AN ABG WAS OBTAINED YESTERDAY AND REVEALED: 7.450, PC02 39.0, P02 75.0, HC03 27.1, 02 SATURATION 96.0, BASE EXCESS 3.0. A CHEST XRAY WAS OBTAINED AND REVEALED: There is persistent diffuse alveolar airspace disease throughout the right left lung which is unchanged from the prior study and worrisome for ARDS. No pleural effusion or gross pneumothorax is seen. The cardiomediastinal contour is stable. SHE IS CURRENTLY RECEIVING 1/2NS AT 75 ML/HR, AZITHROMYCIN 500MG IV DAILY, FORTAZ 1G IV TID, PLAQUENIL 200MG PO BID, ALBUTEROL 2 PUFFS QID, ROBITUSSIN QID, ZOFRAN 4MG IV Q6H PRN, COLACE, THE POTASSIUM AND MAGNESIUM PROTOCOLS, AND HOME MEDICATIONS WERE RESUMED. TODAY, WE WILL ADD SOLU-MEDROL 40MG IV Q8H, DUONEBS, INCENTIVE SPIROMETER Q1H AND INSTRUCT PATIENT TO LIE ON HER STOMACH AT LEAST FOUR TIMES A DAY. WE WILL REPEAT AN ABG. OTHERWISE, WE PLAN TO FOLLOW UP WITH AM LABS AND CHEST XRAY AND CONTINUE TO MONITOR. - Past Medical Family Social History Past Med/Fam/Surg Hx: No changes since H&P Allergies: Allergies No Known Drug Allergies Allergy (Verified 03/15/20 22:35) - Review of Systems ROS: No change since H&P - Vital Signs and I&O's Vital Signs: Temperature 99.1 F Pulse Rate 96 Respiratory Rate 31 Blood Pressure 146/68 O2 Sat by Pulse Oximetry 91 Intake and Output: Intake & Output 03/19/20 03/20/20 03/21/20 03/22/20 11:59 11:59 11:59 11:59 Intake Total 2950 / 2950 2150 / 2150 1790 / 1790 2965 / 2965 Output Total 600 / 600 1200 / 1200 0 / 0 Balance 2350 / 2350 950 / 950 1790 / 1790 2965 / 2965 - Physical Exam Oriented: Normal Eyes: Normal Ear: Normal Nose: Normal Throat: Normal Respiratory: Generalized, Wheezes, Rhonchi Cardiovascular: Normal. negative: S3, S4, Murmur : Normal Auscultation: Bowel Sounds: Normal Palpation: Normal Tenderness: Normal Skin: Normal Musculoskeletal: Normal Psychiatric: Normal Mood Description: Calm Affect: Normal Speech Pattern: Clear, Appropriate - Laboratory and Diagnostics Result Diagrams: 03/22/20 05:45 03/22/20 05:45 Labs: 03/17/20 16:42 Blood Blood Culture - Preliminary 03/17/20 16:40 Blood Blood Culture - Preliminary Laboratory WBC 9.1 X10^3/uL (3.6-10.0) 03/22/20 05:45 RBC 4.67 X10^6/uL (3.5-5.4) 03/22/20 05:45 Hgb 13.8 g/dL (12.0-16.0) 03/22/20 05:45 Hct 40.6 % (36.0-47.0) 03/22/20 05:45 MCV 87.1 fL (80.0-100.0) 03/22/20 05:45 MCH 29.7 pg (27.0-34.0) 03/22/20 05:45 MCHC 34.1 g/dL (33.0-35.0) 03/22/20 05:45 RDW 14.4 % (11.6-16.5) 03/22/20 05:45 Plt Count 218 X10^3/uL (150.0-450.0) 03/22/20 05:45 Plt Count Comment Adequate (ADEQUATE) 03/22/20 05:45 MPV 9.3 fL (7.4-11.0) 03/22/20 05:45 Neut % (Auto) 91.9 % (42.0-75.0) H 03/22/20 05:45 Lymph % (Auto) 4.7 % (21.0-51.0) L 03/22/20 05:45 [place] % (Auto) 3.2 % (0.0-13.0) 03/22/20 05:45 Eos % (Auto) 0.0 % (0.9-2.9) L 03/22/20 05:45 Baso % (Auto) 0.2 % (0.2-1.0) 03/22/20 05:45 Neut # (Auto) 8.4 x10^3/uL (2.2-4.8) H 03/22/20 05:45 Lymph # (Auto) 0.4 X10^3/uL (1.3-2.9) L 03/22/20 05:45 [place] # (Auto) 0.3 x10^3/uL (0.3-0.8) 03/22/20 05:45 Eos # (Auto) 0.0 x10^3/uL (0.0-0.2) 03/22/20 05:45 Baso # (Auto) 0.0 X10^3/uL (0.0-0.1) 03/22/20 05:45 Absolute Nucleated RBC 0.0 /100WBC 03/22/20 05:45 Total Counted 100 03/22/20 05:45 Neutrophils % (Manual) 88 % (39-76) H 03/22/20 05:45 Band Neutrophils % 5 % (0-10) 03/22/20 05:45 Lymphocytes % (Manual) 3 % (13-43) L 03/22/20 05:45 Monocytes % (Manual) 4 % (4-9) 03/22/20 05:45 Plt Morphology Comment Normal (NORMAL) 03/22/20 05:45 RBC Morphology Normal (NORMAL) 03/22/20 05:45 ESR 55 MM/HOUR (0-20) H 03/22/20 05:45 Sample Site Lr 03/21/20 12:01 ABG pH 7.410 (7.35-7.45) 03/21/20 12:01 ABG pCO2 39.0 mmHg (35.0-45.0) 03/21/20 12:01 ABG pO2 93.0 mmHg (80.0-100.0) 03/21/20 12:01 ABG HCO3 24.7 mmol/L (22-26) 03/21/20 12:01 ABG O2 Saturation 97.0 % (90-100) 03/21/20 12:01 ABG Base Excess 0.1 mmol/L (-2.0-2.0) 03/21/20 12:01 Cabrera Test Pos 03/21/20 12:01 A-a Gradient 215.0 mmHg 03/21/20 12:01 FiO2 50.0 03/21/20 12:01 Blood Gas Comments Diego well lj/gmb 03/21/20 12:01 Sodium 141 mmol/L (136-145) 03/22/20 05:45 Corrected Sodium 142 mmol/L (136-145) 03/22/20 05:45 Potassium 3.6 mmol/L (3.5-5.1) 03/22/20 05:45 Chloride 103 mmol/L (98-107) 03/22/20 05:45 Carbon Dioxide 29.0 mmol/L (21-32) 03/22/20 05:45 BUN 7 mg/dL (7-18) 03/22/20 05:45 Creatinine 0.67 mg/dL (0.55-1.02) 03/22/20 05:45 Est GFR (MDRD) Af Amer > 60 (>60) 03/22/20 05:45 Est GFR (MDRD) Non-Af > 60 (>60) 03/22/20 05:45 Glucose 161 mg/dL (65-99) H 03/22/20 05:45 Calcium 7.9 mg/dL (8.5-10.1) L 03/22/20 05:45 Corrected Calcium 9.0 mg/dL (8.5-10.1) 03/22/20 05:45 Magnesium 2.5 mg/dL (1.7-2.9) 03/21/20 05:48 Total Bilirubin 0.30 mg/dL (0.2-1.0) 03/22/20 05:45 AST 39 Units/L (15-37) H 03/22/20 05:45 ALT 29 Units/L (12-78) 03/22/20 05:45 Alkaline Phosphatase 73 Units/L (46-116) 03/22/20 05:45 C-Reactive Protein 199.90 mg/L (0-3.0) H 03/22/20 05:45 Total Protein 7.1 g/dL (6.4-8.2) 03/22/20 05:45 Albumin 2.6 g/dL (3.4-5.0) L 03/22/20 05:45 Globulin 4.5 g/dL (2.5-4.5) 03/22/20 05:45 Albumin/Globulin Ratio 0.6 Ratio (1.1-2.1) L 03/22/20 05:45 - Plan (1) COVID-19 virus infection Status: Acute Plan: 1/2NS AT 75 ML/HR, AZITHROMYCIN 500MG IV DAILY, FORTAZ 1G IV TID, PLAQUENIL 200MG PO BID, DUONEBS, SOLU-MEDROL 40MG IV Q8H, IS Q1H, ALBUTEROL 2 PUFFS QID, AND HOME MEDICATIONS WERE RESUMED (2) Pneumonia Status: Acute Qualifiers: Pneumonia type: due to unspecified organism Laterality: bilateral Lung location: unspecified part of lung Qualified Code(s): J18.9 - Pneumonia, unspecified organism Plan: 1/2NS AT 75 ML/HR, AZITHROMYCIN 500MG IV DAILY, FORTAZ 1G IV TID, PLAQU ENIL 200MG PO BID, DUONEBS, SOLU-MEDROL 40MG IV Q8H, IS Q1H, ALBUTEROL 2 PUFFS QID, AND HOME MEDICATIONS WERE RESUMED
[2020-03-22] MEDS: NS 1/2 1000 ML IV 1,000 ML IV SCH ×3 (09:17→12:41)
[2020-03-22] MEDS: ZITHROMAX INJ 500 MG VIAL 500 MG in NS 250 ML IV 250 ML IV SCH (09:18)
[2020-03-22] MEDS: PLAQUENIL PO SCH ×2 (09:29→21:12)
[2020-03-22] MEDS: SYNTHROID 75 mcg TAB PO SCH (09:30)
[2020-03-22] MEDS: TUSSIONEX PENNKINETIC SUSP PO SCH ×2 (09:30→21:12)
[2020-03-22] MEDS: VITAMIN D (1.25MG) PO SCH (09:31)
[2020-03-22] MEDS: ZINC SULFATE PO SCH ×2 (09:32→21:13)
[2020-03-22] MEDS: PAXIL PO SCH (09:35)
[2020-03-22] MEDS: THIAMINE HCL INJ IM SCH ×2 (10:04→21:12)
[2020-03-22] MEDS: ZOFRAN INJ 4 MG VIAL IVP PRN (11:59)
[2020-03-22] MEDS: XANAX PO PRN (12:15)
[2020-03-22] MEDS: LOVENOX INJ 40 MG SYR SC SCH (17:00)
[2020-03-22] MEDS: COLACE CAP 100 MG PO SCH (21:11)
--- NOTE | 2020-03-22 21:50 | PCM.PROG ---
Progress Note - Progress Note for Day of Date of Exam: 03/22/20 - Subjective Subjective: WAS ADMITTED FOR PNEUMONIA. SHE IS COVID-19 POSITIVE. TODAY, SHE IS ALERT AND ORIENTED, LYING IN BED ON MORNING ROUNDS. SHE CONTINUES WITH COMPLAINTS OF COUGH AND SHORTNESS OF BREATH. SYMPTOMS HAVE SLIGHTLY IMPROVED SINCE YESTERDAY. SHE REPORTS TWO LARGE BOWEL MOVEMENTS YESTERDAY. SHE ALSO REPORTS BEING UNABLE TO REST WELL. ON EXAMINATION, HEART IS REGULAR IN RATE AND RHYTHM. BILATERAL LUNGS ARE NOTED WITH SCATTERED WHEEZING AND RHONCHI. ABDOMEN IS ROUND, SOFT, AND NON-TENDER WITH NORMAL BOWEL SOUNDS IN ALL QUADRANTS. HER VITALS THIS MORNING ARE: 99.1-96-31-91%(venti-mask)-146/68. LABS WERE OBTAINED. ABNORMAL LAB VALUES INCLUDE THE FOLLOWING: ESR 55, GLUCOSE 161, CALCIUM 7.9, AST 39, CRP 199.90, ALBUMIN 2.6. A CHEST XRAY WAS OBTAINED AND REVEALED: Multifocal alveolar airspace disease throughout the right and left lung is not significantly changed from the prior study. This cardiomediastinal contour is stable. No pleural effusion or pneumothorax is seen. SHE IS CURRENTLY RECEIVING 1/2NS AT 75 ML/HR, AZITHROMYCIN 500MG IV DAILY, FORTAZ 1G IV TID, SOLU-MEDROL 40MG IV Q8H, DUONEBS, PLAQUENIL 200MG PO BID, ALBUTEROL 2 PUFFS QID, ROBITUSSIN QID, ZOFRAN 4MG IV Q6H PRN, COLACE, THE POTASSIUM AND MAGNESIUM PROTOCOLS, AND HOME MEDICATIONS WERE RESUMED. TODAY, WE WILL ADD ALPRAZOLAM 0.5MG PO BID PRN. OTHERWISE, WE PLAN TO FOLLOW UP WITH AM LABS AND CHEST XRAY AND CONTINUE TO MONITOR. - Past Medical Family Social History Past Med/Fam/Surg Hx: No changes since H&P Allergies: Allergies No Known Drug Allergies Allergy (Verified 03/15/20 22:35) - Review of Systems ROS: No change since H&P - Vital Signs and I&O's Vital Signs: Temperature 98.3 F Pulse Rate 100 Respiratory Rate 33 Blood Pressure 119/69 O2 Sat by Pulse Oximetry 95 Intake and Output: Intake & Output 03/20/20 03/21/20 03/22/20 03/23/20 11:59 11:59 11:59 11:59 Intake Total 2150 / 2150 1790 / 1790 2965 / 2965 1480 / 1480 Output Total 1200 / 1200 0 / 0 Balance 950 / 950 1790 / 1790 2965 / 2965 1480 / 1480 - Physical Exam Oriented: Normal Eyes: Normal Ear: Normal Nose: Normal Throat: Normal Respiratory: Generalized, Wheezes, Rhonchi Cardiovascular: Normal. negative: S3, S4, Murmur : Normal Auscultation: Bowel Sounds: Normal Tenderness: Normal Skin: Normal Musculoskeletal: Normal Psychiatric: Normal Mood Description: Calm Affect: Normal Speech Pattern: Clear, Appropriate - Laboratory and Diagnostics Result Diagrams: 03/22/20 05:45 03/22/20 05:45 Labs: 03/17/20 16:42 Blood Blood Culture - Final 03/17/20 16:40 Blood Blood Culture - Final Laboratory WBC 9.1 X10^3/uL (3.6-10.0) 03/22/20 05:45 RBC 4.67 X10^6/uL (3.5-5.4) 03/22/20 05:45 Hgb 13.8 g/dL (12.0-16.0) 03/22/20 05:45 Hct 40.6 % (36.0-47.0) 03/22/20 05:45 MCV 87.1 fL (80.0-100.0) 03/22/20 05:45 MCH 29.7 pg (27.0-34.0) 03/22/20 05:45 MCHC 34.1 g/dL (33.0-35.0) 03/22/20 05:45 RDW 14.4 % (11.6-16.5) 03/22/20 05:45 Plt Count 218 X10^3/uL (150.0-450.0) 03/22/20 05:45 Plt Count Comment Adequate (ADEQUATE) 03/22/20 05:45 MPV 9.3 fL (7.4-11.0) 03/22/20 05:45 Neut % (Auto) 91.9 % (42.0-75.0) H 03/22/20 05:45 Lymph % (Auto) 4.7 % (21.0-51.0) L 03/22/20 05:45 [place] % (Auto) 3.2 % (0.0-13.0) 03/22/20 05:45 Eos % (Auto) 0.0 % (0.9-2.9) L 03/22/20 05:45 Baso % (Auto) 0.2 % (0.2-1.0) 03/22/20 05:45 Neut # (Auto) 8.4 x10^3/uL (2.2-4.8) H 03/22/20 05:45 Lymph # (Auto) 0.4 X10^3/uL (1.3-2.9) L 03/22/20 05:45 [place] # (Auto) 0.3 x10^3/uL (0.3-0.8) 03/22/20 05:45 Eos # (Auto) 0.0 x10^3/uL (0.0-0.2) 03/22/20 05:45 Baso # (Auto) 0.0 X10^3/uL (0.0-0.1) 03/22/20 05:45 Absolute Nucleated RBC 0.0 /100WBC 03/22/20 05:45 Total Counted 100 03/22/20 05:45 Neutrophils % (Manual) 88 % (39-76) H 03/22/20 05:45 Band Neutrophils % 5 % (0-10) 03/22/20 05:45 Lymphocytes % (Manual) 3 % (13-43) L 03/22/20 05:45 Monocytes % (Manual) 4 % (4-9) 03/22/20 05:45 Plt Morphology Comment Normal (NORMAL) 03/22/20 05:45 RBC Morphology Normal (NORMAL) 03/22/20 05:45 ESR 55 MM/HOUR (0-20) H 03/22/20 05:45 Sample Site Lr 03/21/20 12:01 ABG pH 7.410 (7.35-7.45) 03/21/20 12:01 ABG pCO2 39.0 mmHg (35.0-45.0) 03/21/20 12:01 ABG pO2 93.0 mmHg (80.0-100.0) 03/21/20 12:01 ABG HCO3 24.7 mmol/L (22-26) 03/21/20 12:01 ABG O2 Saturation 97.0 % (90-100) 03/21/20 12:01 ABG Base Excess 0.1 mmol/L (-2.0-2.0) 03/21/20 12:01 Cabrera Test Pos 03/21/20 12:01 A-a Gradient 215.0 mmHg 03/21/20 12:01 FiO2 50.0 03/21/20 12:01 Blood Gas Comments Diego well lj/gmb 03/21/20 12:01 Sodium 141 mmol/L (136-145) 03/22/20 05:45 Corrected Sodium 142 mmol/L (136-145) 03/22/20 05:45 Potassium 3.6 mmol/L (3.5-5.1) 03/22/20 05:45 Chloride 103 mmol/L (98-107) 03/22/20 05:45 Carbon Dioxide 29.0 mmol/L (21-32) 03/22/20 05:45 BUN 7 mg/dL (7-18) 03/22/20 05:45 Creatinine 0.67 mg/dL (0.55-1.02) 03/22/20 05:45 Est GFR (MDRD) Af Amer > 60 (>60) 03/22/20 05:45 Est GFR (MDRD) Non-Af > 60 (>60) 03/22/20 05:45 Glucose 161 mg/dL (65-99) H 03/22/20 05:45 Calcium 7.9 mg/dL (8.5-10.1) L 03/22/20 05:45 Corrected Calcium 9.0 mg/dL (8.5-10.1) 03/22/20 05:45 Magnesium 2.5 mg/dL (1.7-2.9) 03/21/20 05:48 Total Bilirubin 0.30 mg/dL (0.2-1.0) 03/22/20 05:45 AST 39 Units/L (15-37) H 03/22/20 05:45 ALT 29 Units/L (12-78) 03/22/20 05:45 Alkaline Phosphatase 73 Units/L (46-116) 03/22/20 05:45 C-Reactive Protein 199.90 mg/L (0-3.0) H 03/22/20 05:45 Total Protein 7.1 g/dL (6.4-8.2) 03/22/20 05:45 Albumin 2.6 g/dL (3.4-5.0) L 03/22/20 05:45 Globulin 4.5 g/dL (2.5-4.5) 03/22/20 05:45 Albumin/Globulin Ratio 0.6 Ratio (1.1-2.1) L 03/22/20 05:45 - Plan (1) COVID-19 virus infection Status: Acute Plan: 1/2NS AT 75 ML/HR, AZITHROMYCIN 500MG IV DAILY, FORTAZ 1G IV TID, PLAQUENIL 200MG PO BID, DUONEBS, SOLU-MEDROL 40MG IV Q8H, IS Q1H, ALBUTEROL 2 PUFFS QID, AND HOME MEDICATIONS WERE RESUMED (2) Pneumonia Status: Acute Qualifiers: Pneumonia type: due to unspecified organism Laterality: bilateral Lung location: unspecified part of lung Qualified Code(s): J18.9 - Pneumonia, unspecified organism Plan: 1/2NS AT 75 ML/HR, AZITHROMYCIN 500MG IV DAILY, FORTAZ 1G IV TID, PLAQUENIL 200MG PO BID, DUONEBS, SOLU-MEDROL 40MG IV Q8H, IS Q1H, ALBUTEROL 2 PUFFS QID, AND HOME MEDICATIONS WERE RESUMED
[2020-03-23] MEDS: NS 100 ML IV 100 ML with ASCORBIC ACID INJ MULTI-DOSE VIAL 1,500 MG IV SCH ×10 (03:31→21:24)
[2020-03-23] MEDS: VITAMIN A PO SCH ×3 (03:32→09:33)
[2020-03-23] MEDS: FORTAZ or TAZICEF VIAL INJ 1 G in NS 100 ML IV + SPIKE MINIBAG* 100 ML IV SCH ×3 (05:28→21:25)
[2020-03-23] MEDS: SOLU-Medrol 40 MG VIAL IVP SCH ×3 (05:28→21:22)
[2020-03-23] MEDS: TESSALON PERLES PO SCH ×3 (05:29→21:21)
[2020-03-23] MEDS: XANAX PO PRN ×2 (05:29→15:00)
--- NOTE | 2020-03-23 05:55 | RAD ---
STUDY: CHEST, 1 VIEWCOMPARISON: March 22, 2020HISTORY: SOBFINDINGS:Diffuse multifocal alveolar airspace disease remains throughout the right and left lung unchanged from the prior study. Cardiomediastinal contour is stable. No pleural effusion or gross pneumothorax is seen.IMPRESSION:There is no significant change from prior study. Findings remain worrisome for ongoing ARDS.Electronically signed by: Jeffrey Barros (Mar 23, 2020 05:53:31)
[2020-03-23] MEDS: DUONEB 0.5 MG/3 MG (3 mL) NEB SCH ×5 (06:20→20:45)
[2020-03-23 06:35] LABS: BASOPHILS % (AUTO) 0.3 % (0.2-1.0); HEMATOCRIT 38.5 % (36.0-47.0); HEMOGLOBIN 12.7 g/dL (12.0-16.0); LYMPHOCYTES # (AUTO) 0.5 X10^3/uL (1.3-2.9); LYMPHOCYTES % (AUTO) 3.1 % (21.0-51.0); MEAN CORPUSCULAR HEMOGLOBIN 28.7 pg (27.0-34.0); MEAN CORPUSCULAR HGB CONC 33.1 g/dL (33.0-35.0); MEAN CORPUSCULAR VOLUME 86.7 fL (80.0-100.0); MEAN PLATELET VOLUME 9.4 fL (7.4-11.0); MONOCYTES # (AUTO) 0.7 x10^3/uL (0.3-0.8); MONOCYTES % (AUTO) 4.6 % (0.0-13.0); NEUTROPHILS # (AUTO) 14.5 x10^3/uL (2.2-4.8); PLATELET COUNT 253 X10^3/uL (150.0-450.0); RED BLOOD COUNT 4.44 X10^6/uL (3.5-5.4); RED CELL DISTRIBUTION WIDTH 14.4 % (11.6-16.5); WHITE BLOOD COUNT 15.8 X10^3/uL (3.6-10.0)
[2020-03-23 07:02] LABS: ALANINE AMINOTRANSFERASE 31 Units/L (12-78); ALBUMIN 2.4 g/dL (3.4-5.0); ALKALINE PHOSPHATASE 76 Units/L (46-116); ASPARTATE AMINO TRANSFERASE 35 Units/L (15-37); BLOOD UREA NITROGEN 11 mg/dL (7-18); CALCIUM 8.1 mg/dL (8.5-10.1); CARBON DIOXIDE 30.1 mmol/L (21-32); CHLORIDE 106 mmol/L (98-107); COR CA(FOR HYPOALB) 9.4 mg/dL (8.5-10.1); COR NA(FOR HYPERGLY) 145 mmol/L (136-145); CREATININE 0.66 mg/dL (0.55-1.02); SODIUM 144 mmol/L (136-145); TOTAL PROTEIN 6.4 g/dL (6.4-8.2); eGFR NON BLACK RACES > 60 (>60)
[2020-03-23 07:09] LABS: BAND NEUTROPHILS % 6 % (0-10); PLATELET MORPHOLOGY COMMENT NORMAL (NORMAL)
[2020-03-23 07:17] LABS: ERYTHROCYTE SEDIMENTATION RATE 38 MM/HOUR (0-20)
[2020-03-23] MEDS: NS 1/2 1000 ML IV 1,000 ML IV SCH ×2 (08:02→15:22)
[2020-03-23] MEDS: LOVENOX INJ 40 MG SYR SC SCH (08:14)
[2020-03-23] MEDS: PAXIL PO SCH (08:16)
[2020-03-23] MEDS: PLAQUENIL PO SCH ×2 (08:17→21:25)
[2020-03-23] MEDS: THIAMINE HCL INJ IM SCH ×2 (08:18→21:23)
[2020-03-23] MEDS: SYNTHROID 75 mcg TAB PO SCH (08:18)
[2020-03-23] MEDS: TUSSIONEX PENNKINETIC SUSP PO SCH ×2 (08:19→21:22)
[2020-03-23] MEDS: ZITHROMAX INJ 500 MG VIAL 500 MG in NS 250 ML IV 250 ML IV SCH (08:20)
[2020-03-23] MEDS: ZINC SULFATE PO SCH ×2 (08:20→21:20)
[2020-03-23] MEDS ORDERED: VITAMIN A PO SCH (09:00)
[2020-03-23] MEDS ORDERED: VITAMIN D3 25 mcg (1,000 UNITS) PO SCH (09:00)
--- NOTE | 2020-03-23 10:04 | PCM.PROG ---
Progress Note - Progress Note for Day of Date of Exam: 03/23/20 - Subjective Subjective: WAS ADMITTED FOR PNEUMONIA. SHE IS COVID-19 POSITIVE. TODAY, SHE IS ALERT AND ORIENTED, LYING IN BED ON MORNING ROUNDS. SHE CONTINUES WITH COMPLAINTS OF COUGH AND SHORTNESS OF BREATH, BUT CONTINUES TO REPORT IMPROVEMENT SINCE YESTERDAY. ON EXAMINATION, HEART IS REGULAR IN RATE AND RH YTHM. BILATERAL LUNGS ARE NOTED WITH SCATTERED WHEEZING AND RHONCHI. ABDOMEN IS ROUND, SOFT, AND NON-TENDER WITH NORMAL BOWEL SOUNDS IN ALL QUADRANTS. HER VITALS THIS MORNING ARE: 97.4-91-35-92%-129/62. LABS WERE OBTAINED. ABNORMAL LAB VALUES INCLUDE THE FOLLOWING: WBC 15.8, GLUCOSE 154, CALCIUM 8.1, CRP 76.40, ALBUMIN 2.4. A CHEST XRAY WAS OBTAINED AND REVEALED: There is no significant change from prior study. Findings remain worrisome for ongoing ARDS. SHE IS CURRENTLY RECEIVING 1/2NS AT 75 ML/HR, AZITHROMYCIN 500MG IV DAILY, FORTAZ 1G IV TID, SOLU-MEDROL 40MG IV Q8H, DUONEBS, PLAQUENIL 200MG PO BID, ALBUTEROL 2 PUFFS QID, ROBITUSSIN QID, ZOFRAN 4MG IV Q6H PRN, COLACE, THE POTASSIUM AND MAGNESIUM PROTOCOLS, AND HOME MEDICATIONS WERE RESUMED. WE WILL CONTINUE WITH CURRENT PLAN OF CARE TODAY. OTHERWISE, WE PLAN TO FOLLOW UP WITH AM LABS AND CHEST XRAY AND CONTINUE TO MONITOR. - Past Medical Family Social History Past Med/Fam/Surg Hx: No changes since H&P Allergies: Allergies No Known Drug Allergies Allergy (Verified 03/15/20 22:35) - Review of Systems ROS: No change since H&P - Vital Signs and I&O's Vital Signs: Temperature 97.4 F Pulse Rate 93 Respiratory Rate 29 Blood Pressure 129/60 O2 Sat by Pulse Oximetry 91 Intake and Output: Intake & Output 03/20/20 03/21/20 03/22/20 03/23/20 11:59 11:59 11:59 11:59 Intake Total 2150 / 2150 1790 / 1790 2965 / 2965 2893 / 2893 Output Total 1200 / 1200 0 / 0 0 / 0 Balance 950 / 950 1790 / 1790 2965 / 2965 2893 / 2893 - Physical Exam Oriented: Normal Eyes: Normal Ear: Normal Nose: Normal Throat: Normal Respiratory: Generalized, Wheezes, Rhonchi Cardiovascular: Normal. negative: S3, S4, Murmur : Normal Auscultation: Bowel Sounds: Normal Tenderness: Normal Skin: Normal Musculoskeletal: Normal Psychiatric: Normal Mood Description: Calm Affect: Normal Speech Pattern: Clear, Appropriate - Laboratory and Diagnostics Result Diagrams: 03/23/20 05:42 03/23/20 05:42 Labs: 03/17/20 16:42 Blood Blood Culture - Final 03/17/20 16:40 Blood Blood Culture - Final Laboratory WBC 15.8 X10^3/uL (3.6-10.0) H 03/23/20 05:42 RBC 4.44 X10^6/uL (3.5-5.4) 03/23/20 05:42 Hgb 12.7 g/dL (12.0-16.0) 03/23/20 05:42 Hct 38.5 % (36.0-47.0) 03/23/20 05:42 MCV 86.7 fL (80.0-100.0) 03/23/20 05:42 MCH 28.7 pg (27.0-34.0) 03/23/20 05:42 MCHC 33.1 g/dL (33.0-35.0) 03/23/20 05:42 RDW 14.4 % (11.6-16.5) 03/23/20 05:42 Plt Count 253 X10^3/uL (150.0-450.0) 03/23/20 05:42 Plt Count Comment Adequate (ADEQUATE) 03/23/20 05:42 MPV 9.4 fL (7.4-11.0) 03/23/20 05:42 Neut % (Auto) 92.0 % (42.0-75.0) H 03/23/20 05:42 Lymph % (Auto) 3.1 % (21.0-51.0) L 03/23/20 05:42 [place] % (Auto) 4.6 % (0.0-13.0) 03/23/20 05:42 Eos % (Auto) 0.0 % (0.9-2.9) L 03/23/20 05:42 Baso % (Auto) 0.3 % (0.2-1.0) 03/23/20 05:42 Neut # (Auto) 14.5 x10^3/uL (2.2-4.8) H 03/23/20 05:42 Lymph # (Auto) 0.5 X10^3/uL (1.3-2.9) L 03/23/20 05:42 [place] # (Auto) 0.7 x10^3/uL (0.3-0.8) 03/23/20 05:42 Eos # (Auto) 0.0 x10^3/uL (0.0-0.2) 03/23/20 05:42 Baso # (Auto) 0.0 X10^3/uL (0.0-0.1) 03/23/20 05:42 Absolute Nucleated RBC 0.0 /100WBC 03/23/20 05:42 Total Counted 100 03/23/20 05:42 Neutrophils % (Manual) 91 % (39-76) H 03/23/20 05:42 Band Neutrophils % 6 % (0-10) 03/23/20 05:42 Lymphocytes % (Manual) 2 % (13-43) L 03/23/20 05:42 Monocytes % (Manual) 1 % (4-9) L 03/23/20 05:42 Plt Morphology Comment Normal (NORMAL) 03/23/20 05:42 RBC Morphology Normal (NORMAL) 03/23/20 05:42 ESR 38 MM/HOUR (0-20) H 03/23/20 05:42 Sample Site Lr 03/21/20 12:01 ABG pH 7.410 (7.35-7.45) 03/21/20 12:01 ABG pCO2 39.0 mmHg (35.0-45.0) 03/21/20 12:01 ABG pO2 93.0 mmHg (80.0-100.0) 03/21/20 12:01 ABG HCO3 24.7 mmol/L (22-26) 03/21/20 12:01 ABG O2 Saturation 97.0 % (90-100) 03/21/20 12:01 ABG Base Excess 0.1 mmol/L (-2.0-2.0) 03/21/20 12:01 Cabrera Test Pos 03/21/20 12:01 A-a Gradient 215.0 mmHg 03/21/20 12:01 FiO2 50.0 03/21/20 12:01 Blood Gas Comments Diego well lj/gmb 03/21/20 12:01 Sodium 144 mmol/L (136-145) 03/23/20 05:42 Corrected Sodium 145 mmol/L (136-145) 03/23/20 05:42 Potassium 3.7 mmol/L (3.5-5.1) 03/23/20 05:42 Chloride 106 mmol/L (98-107) 03/23/20 05:42 Carbon Dioxide 30.1 mmol/L (21-32) 03/23/20 05:42 BUN 11 mg/dL (7-18) 03/23/20 05:42 Creatinine 0.66 mg/dL (0.55-1.02) 03/23/20 05:42 Est GFR (MDRD) Af Amer > 60 (>60) 03/23/20 05:42 Est GFR (MDRD) Non-Af > 60 (>60) 03/23/20 05:42 Glucose 154 mg/dL (65-99) H 03/23/20 05:42 Calcium 8.1 mg/dL (8.5-10.1) L 03/23/20 05:42 Corrected Calcium 9.4 mg/dL (8.5-10.1) 03/23/20 05:42 Magnesium 2.5 mg/dL (1.7-2.9) 03/21/20 05:48 Total Bilirubin 0.20 mg/dL (0.2-1.0) 03/23/20 05:42 AST 35 Units/L (15-37) 03/23/20 05:42 ALT 31 Units/L (12-78) 03/23/20 05:42 Alkaline Phosphatase 76 Units/L (46-116) 03/23/20 05:42 C-Reactive Protein 76.40 mg/L (0-3.0) H 03/23/20 05:42 Total Protein 6.4 g/dL (6.4-8.2) 03/23/20 05:42 Albumin 2.4 g/dL (3.4-5.0) L 03/23/20 05:42 Globulin 4.0 g/dL (2.5-4.5) 03/23/20 05:42 Albumin/Globulin Ratio 0.6 Ratio (1.1-2.1) L 03/23/20 05:42 - Plan (1) COVID-19 virus infection Status: Acute Plan: 1/2NS AT 75 ML/HR, AZITHROMYCIN 500MG IV DAILY, FORTAZ 1G IV TID, PLAQUENIL 200MG PO BID, DUONEBS, SOLU-MEDROL 40MG IV Q8H, IS Q1H, ALBUTEROL 2 PUFFS QID, AND HOME MEDICATIONS WERE RESUMED (2) Pneumonia Status: Acute Qualifiers: Pneumonia type: due to unspecified organism Laterality: bilateral Lung location: unspecified part of lung Qualified Code(s): J18.9 - Pneumonia, unspecified organism Plan: 1/2NS AT 75 ML/HR, AZITHROMYCIN 500MG IV DAILY, FORTAZ 1G IV TID, PLAQUENIL 200MG PO BID, DUONEBS, SOLU-MEDROL 40MG IV Q8H, IS Q1H, ALBUTEROL 2 PUFFS QID, AND HOME MEDICATIONS WERE RESUMED
[2020-03-23] MEDS ORDERED: NS 1/2 1000 ML IV 1,000 ML IV ONE (18:30)
[2020-03-23] MEDS: RESTORIL CAP 15 MG PO PRN (21:20)
[2020-03-23] MEDS: COLACE CAP 100 MG PO SCH (21:20)
[2020-03-24] MEDS: TYLENOL 325 MG TAB PO PRN ×3 (01:50→20:56)
[2020-03-24] MEDS: NS 1/2 1000 ML IV 1,000 ML IV SCH ×3 (03:59→21:00)
[2020-03-24] MEDS: NS 100 ML IV 100 ML with ASCORBIC ACID INJ MULTI-DOSE VIAL 1,500 MG IV SCH ×8 (03:59→20:57)
[2020-03-24] MEDS: FORTAZ or TAZICEF VIAL INJ 1 G in NS 100 ML IV + SPIKE MINIBAG* 100 ML IV SCH ×3 (05:10→20:59)
[2020-03-24] MEDS: SOLU-Medrol 40 MG VIAL IVP SCH (05:54)
[2020-03-24] MEDS: TESSALON PERLES PO SCH ×4 (05:54→20:59)
[2020-03-24] MEDS: DUONEB 0.5 MG/3 MG (3 mL) NEB SCH ×5 (06:00→20:20)
[2020-03-24] MEDS: XANAX PO PRN ×2 (06:04→12:30)
[2020-03-24 06:15] LABS: BASOPHILS % (AUTO) 0.1 % (0.2-1.0); HEMATOCRIT 39.4 % (36.0-47.0); HEMOGLOBIN 13.1 g/dL (12.0-16.0); LYMPHOCYTES # (AUTO) 0.5 X10^3/uL (1.3-2.9); LYMPHOCYTES % (AUTO) 3.2 % (21.0-51.0); MEAN CORPUSCULAR HGB CONC 33.3 g/dL (33.0-35.0); MEAN PLATELET VOLUME 8.8 fL (7.4-11.0); MONOCYTES # (AUTO) 0.7 x10^3/uL (0.3-0.8); MONOCYTES % (AUTO) 4.1 % (0.0-13.0); NEUTROPHILS # (AUTO) 15.8 x10^3/uL (2.2-4.8); NEUTROPHILS % (AUTO) 92.6 % (42.0-75.0); PLATELET COUNT 316 X10^3/uL (150.0-450.0); RED BLOOD COUNT 4.53 X10^6/uL (3.5-5.4); RED CELL DISTRIBUTION WIDTH 14.6 % (11.6-16.5); WHITE BLOOD COUNT 17.1 X10^3/uL (3.6-10.0)
--- NOTE | 2020-03-24 06:17 | RAD ---
HISTORYShortness of breathSTUDYCHEST, 1 [id number] heart remains enlarged. Diffuse bilateral alveolar infiltrates are again identified increasing on the right and unchanged on the left. No pleural effusions are identified. Bony thorax is unremarkable.IMPRESSIONCardiomegaly without congestive heart failureDiffuse bilateral alveolar infiltrates worsening on the right and unchanged on the leftElectronically signed by: ERNIE ORR (Mar 24, 2020 06:16:02)
[2020-03-24 06:31] LABS: ALANINE AMINOTRANSFERASE 36 Units/L (12-78); ALBUMIN 2.4 g/dL (3.4-5.0); ALKALINE PHOSPHATASE 120 Units/L (46-116); ASPARTATE AMINO TRANSFERASE 42 Units/L (15-37); BLOOD UREA NITROGEN 11 mg/dL (7-18); CALCIUM 7.9 mg/dL (8.5-10.1); CARBON DIOXIDE 30.5 mmol/L (21-32); CHLORIDE 106 mmol/L (98-107); COR CA(FOR HYPOALB) 9.2 mg/dL (8.5-10.1); COR NA(FOR HYPERGLY) 145 mmol/L (136-145); CREATININE 0.69 mg/dL (0.55-1.02); SODIUM 144 mmol/L (136-145); TOTAL PROTEIN 6.5 g/dL (6.4-8.2); eGFR NON BLACK RACES > 60 (>60)
[2020-03-24 06:49] LABS: BAND NEUTROPHILS % 3 % (0-10); PLATELET MORPHOLOGY COMMENT NORMAL (NORMAL)
[2020-03-24 06:54] LABS: ERYTHROCYTE SEDIMENTATION RATE 36 MM/HOUR (0-20)
[2020-03-24 09:01] LABS: ABG BASE EXCESS 7.8 mmol/L (-2.0-2.0)
[2020-03-24] MEDS: LOVENOX INJ 40 MG SYR SC SCH (09:09)
[2020-03-24] MEDS: PAXIL PO SCH (09:10)
[2020-03-24] MEDS: PLAQUENIL PO SCH ×2 (09:10→20:57)
[2020-03-24] MEDS: SYNTHROID 75 mcg TAB PO SCH (09:11)
[2020-03-24] MEDS: TUSSIONEX PENNKINETIC SUSP PO SCH ×2 (09:11→20:58)
[2020-03-24] MEDS: THIAMINE HCL INJ IM SCH ×2 (09:11→20:57)
[2020-03-24] MEDS: VITAMIN A PO SCH (09:12)
[2020-03-24] MEDS: ZINC SULFATE PO SCH ×2 (09:12→20:58)
[2020-03-24] MEDS: ZITHROMAX INJ 500 MG VIAL 500 MG in NS 250 ML IV 250 ML IV SCH (09:13)
[2020-03-24] MEDS: VITAMIN D3 125 mcg (5,000 UNITS) PO SCH (09:48)
--- NOTE | 2020-03-24 12:24 | PCM.PROG ---
Progress Note - Progress Note for Day of Date of Exam: 03/24/20 - Subjective Subjective: WAS ADMITTED FOR PNEUMONIA. SHE IS COVID-19 POSITIVE. TODAY, SHE IS ALERT AND ORIENTED, LYING IN BED ON MORNING ROUNDS. SHE CONTINUES WITH COMPLAINTS OF COUGH AND SHORTNESS OF BREATH, BUT CONTINUES TO REPORT IMPROVEMENT SINCE YESTERDAY. ON EXAMINATION, HEART IS REGULAR IN RATE AND RH YTHM. BILATERAL LUNGS ARE NOTED WITH SCATTERED WHEEZING AND RHONCHI. ABDOMEN IS ROUND, SOFT, AND NON-TENDER WITH NORMAL BOWEL SOUNDS IN ALL QUADRANTS. HER VITALS THIS MORNING ARE: 97.0-89-32-91%-161/70. LABS WERE OBTAINED. ABNORMAL LAB VALUES INCLUDE THE FOLLOWING: WBC 17.1, GLUCOSE 127, CALCIUM 7.9, AST 42, ALK PHOS 120, CRP 49.40, ALBUMIN 2.4. BLOOD CULTURES ARE NEGATIVE. SPUTUM CULTURE IS PENDING. AN ABG WAS REPEATED THIS MORNING AND REVEALED: PH 7.490, PC02 42.0, P02 55.0, HC03 32.0, 02 SATURATION 91.0, BASE EXCESS 7.8. A CHEST XRAY WAS OBTAINED AND REVEALED: The heart remains enlarged. Diffuse bilateral alveolar infiltrates are again identified increasing on the right and unchanged on the left. No pleural effusions are identified. Bony thorax is unremarkable. SHE IS CURRENTLY RECEIVING 1/2NS AT 75 ML/HR, AZITHROMYCIN 500MG IV DAILY, FORTAZ 1G IV TID, SOLU-MEDROL 40MG IV Q8H, DUONEBS, PLAQUENIL 200MG PO BID, ALBUTEROL 2 PUFFS QID, ROBITUSSIN QID, ZOFRAN 4MG IV Q6H PRN, COLACE, THE POTASSIUM AND MAGNESIUM PROTOCOLS, AND HOME MEDICATIONS WERE RESUMED. WE WILL CONTINUE WITH CURRENT PLAN OF CARE TODAY. OTHERWISE, WE PLAN TO FOLLOW UP WITH AM LABS AND CHEST XRAY AND CONTINUE TO MONITOR. - Past Medical Family Social History Past Med/Fam/Surg Hx: No changes since H&P Allergies: Allergies No Known Drug Allergies Allergy (Verified 03/15/20 22:35) - Review of Systems ROS: No change since H&P - Vital Signs and I&O's Vital Signs: Temperature 97.0 F Pulse Rate 93 Respiratory Rate 34 Blood Pressure 161/77 O2 Sat by Pulse Oximetry 91 Intake and Output: Intake & Output 04/28/03/23/20 03/24/20 03/25/20 11:59 11:59 11:59 11:59 Intake Total 2965 / 2965 2893 / 2893 2943 / 2943 Output Total 0 / 0 0 / 0 Balance 2965 / 2965 2893 / 2893 2943 / 2943 - Physical Exam Oriented: Normal Eyes: Normal Ear: Normal Nose: Normal Throat: Normal Respiratory: Generalized, Wheezes, Rhonchi Cardiovascular: Normal. negative: S3, S4, Murmur : Normal Auscultation: Bowel Sounds: Normal Tenderness: Normal Skin: Normal Musculoskeletal: Normal Psychiatric: Normal Mood Description: Calm Affect: Normal Speech Pattern: Clear, Appropriate - Laboratory and Diagnostics Result Diagrams: 03/24/20 05:41 03/24/20 05:41 Labs: 03/24/20 07:30 Sputum - Expectorated Sputum - Final 03/17/20 16:42 Blood Blood Culture - Final 03/17/20 16:40 Blood Blood Culture - Final Laboratory WBC 17.1 X10^3/uL (3.6-10.0) H 03/24/20 05:41 RBC 4.53 X10^6/uL (3.5-5.4) 03/24/20 05:41 Hgb 13.1 g/dL (12.0-16.0) 03/24/20 05:41 Hct 39.4 % (36.0-47.0) 03/24/20 05:41 MCV 87.0 fL (80.0-100.0) 03/24/20 05:41 MCH 29.0 pg (27.0-34.0) 03/24/20 05:41 MCHC 33.3 g/dL (33.0-35.0) 03/24/20 05:41 RDW 14.6 % (11.6-16.5) 03/24/20 05:41 Plt Count 316 X10^3/uL (150.0-450.0) 03/24/20 05:41 Plt Count Comment Adequate (ADEQUATE) 03/24/20 05:41 MPV 8.8 fL (7.4-11.0) 03/24/20 05:41 Neut % (Auto) 92.6 % (42.0-75.0) H 03/24/20 05:41 Lymph % (Auto) 3.2 % (21.0-51.0) L 03/24/20 05:41 [place] % (Auto) 4.1 % (0.0-13.0) 03/24/20 05:41 Eos % (Auto) 0.0 % (0.9-2.9) L 03/24/20 05:41 Baso % (Auto) 0.1 % (0.2-1.0) L 03/24/20 05:41 Neut # (Auto) 15.8 x10^3/uL (2.2-4.8) H 03/24/20 05:41 Lymph # (Auto) 0.5 X10^3/uL (1.3-2.9) L 03/24/20 05:41 [place] # (Auto) 0.7 x10^3/uL (0.3-0.8) 03/24/20 05:41 Eos # (Auto) 0.0 x10^3/uL (0.0-0.2) 03/24/20 05:41 Baso # (Auto) 0.0 X10^3/uL (0.0-0.1) 03/24/20 05:41 Absolute Nucleated RBC 0.0 /100WBC 03/24/20 05:41 Total Counted 100 03/24/20 05:41 Neutrophils % (Manual) 91 % (39-76) H 03/24/20 05:41 Band Neutrophils % 3 % (0-10) 03/24/20 05:41 Lymphocytes % (Manual) 3 % (13-43) L 03/24/20 05:41 Monocytes % (Manual) 3 % (4-9) L 03/24/20 05:41 Plt Morphology Comment Normal (NORMAL) 03/24/20 05:41 RBC Morphology Normal (NORMAL) 03/24/20 05:41 ESR 36 MM/HOUR (0-20) H 03/24/20 05:41 Sample Site Lb 03/24/20 08:56 ABG pH 7.490 (7.35-7.45) H 03/24/20 08:56 ABG pCO2 42.0 mmHg (35.0-45.0) 03/24/20 08:56 ABG pO2 55.0 mmHg (80.0-100.0) L 03/24/20 08:56 ABG HCO3 32.0 mmol/L (22-26) H* 03/24/20 08:56 ABG O2 Saturation 91.0 % (90-100) 03/24/20 08:56 ABG Base Excess 7.8 mmol/L (-2.0-2.0) H 03/24/20 08:56 Cabrera Test Na 03/24/20 08:56 A-a Gradient 363.0 mmHg 03/24/20 08:56 FiO2 66.0 03/24/20 08:56 Blood Gas Comments Diego well, aw/gb 03/24/20 08:56 Sodium 144 mmol/L (136-145) 03/24/20 05:41 Corrected Sodium 145 mmol/L (136-145) 03/24/20 05:41 Potassium 3.7 mmol/L (3.5-5.1) 03/24/20 05:41 Chloride 106 mmol/L (98-107) 03/24/20 05:41 Carbon Dioxide 30.5 mmol/L (21-32) 03/24/20 05:41 BUN 11 mg/dL (7-18) 03/24/20 05:41 Creatinine 0.69 mg/dL (0.55-1.02) 03/24/20 05:41 Est GFR (MDRD) Af Amer > 60 (>60) 03/24/20 05:41 Est GFR (MDRD) Non-Af > 60 (>60) 03/24/20 05:41 Glucose 127 mg/dL (65-99) H 03/24/20 05:41 Calcium 7.9 mg/dL (8.5-10.1) L 03/24/20 05:41 Corrected Calcium 9.2 mg/dL (8.5-10.1) 03/24/20 05:41 Magnesium 2.5 mg/dL (1.7-2.9) 03/21/20 05:48 Total Bilirubin 0.20 mg/dL (0.2-1.0) 03/24/20 05:41 AST 42 Units/L (15-37) H 03/24/20 05:41 ALT 36 Units/L (12-78) 03/24/20 05:41 Alkaline Phosphatase 120 Units/L (46-116) H 03/24/20 05:41 C-Reactive Protein 49.40 mg/L (0-3.0) H 03/24/20 05:41 Total Protein 6.5 g/dL (6.4-8.2) 03/24/20 05:41 Albumin 2.4 g/dL (3.4-5.0) L 03/24/20 05:41 Globulin 4.1 g/dL (2.5-4.5) 03/24/20 05:41 Albumin/Globulin Ratio 0.6 Ratio (1.1-2.1) L 03/24/20 05:41 - Plan (1) COVID-19 virus infection Status: Acute Plan: 1/2NS AT 75 ML/HR, AZITHROMYCIN 500MG IV DAILY, FORTAZ 1G IV TID, PLAQUENIL 200MG PO BID, DUONEBS, SOLU-MEDROL 40MG IV Q8H, IS Q1H, ALBUTEROL 2 PUFFS QID, AND HOME MEDICATIONS WERE RESUMED (2) Pneumonia Status: Acute Qualifiers: Pneumonia type: due to unspecified organism Laterality: bilateral Lung location: unspecified part of lung Qualified Code(s): J18.9 - Pneumonia, unspecified organism Plan: 1/2NS AT 75 ML/HR, AZITHROMYCIN 500MG IV DAILY, FORTAZ 1G IV TID, PLAQUENIL 200MG PO BID, DUONEBS, SOLU-MEDROL 40MG IV Q8H, IS Q1H, ALBUTEROL 2 PUFFS QID, AND HOME MEDICATIONS WERE RESUMED
[2020-03-24] MEDS ORDERED: NS 100 ML IV + SPIKE MINIBAG* 100 ML IV ONE ×2 (14:12→20:42)
[2020-03-24] MEDS: ESTRADIOL TOP SCH (16:48)
[2020-03-24] MEDS ORDERED: NS 1/2 1000 ML IV 1,000 ML IV ONE (20:42)
[2020-03-24] MEDS: COLACE CAP 100 MG PO SCH (20:56)
[2020-03-24] MEDS: K-DUR TAB 20 MEQ PO PRN (21:00)
[2020-03-24] MEDS: RESTORIL CAP 15 MG PO PRN (21:00)
[2020-03-25] MEDS: XANAX PO PRN ×2 (00:30→10:48)
[2020-03-25] MEDS: ROBITUSSIN (PLAIN) PO PRN (01:18)
[2020-03-25] MEDS: ZOFRAN INJ 4 MG VIAL IVP PRN (03:01)
[2020-03-25] MEDS: NS 100 ML IV 100 ML with ASCORBIC ACID INJ MULTI-DOSE VIAL 1,500 MG IV SCH ×8 (03:01→20:37)
[2020-03-25] MEDS: TYLENOL 325 MG TAB PO PRN (03:01)
[2020-03-25 03:42] LABS: BILIRUBIN,URINE NEGATIVE (NEGATIVE); BLOOD/HEMOGLOBIN,URINE NEGATIVE (NEGATIVE); GLUCOSE, URINE NEGATIVE (NEGATIVE); KETONES,URINE NEGATIVE (NEGATIVE); LEUKOCYTE ESTERASE ,URINE NEGATIVE (NEGATIVE); NITRITES,URINE NEGATIVE (NEGATIVE); PROTEIN,URINE NEGATIVE (NEGATIVE); UROBILINOGEN,URINE NORMAL (NORMAL)
[2020-03-25 03:45] LABS: APPEARANCE,URINE CLEAR (CLEAR); COLOR,URINE STRAW (YELLOW)
[2020-03-25 04:43] LABS: ABG BASE EXCESS 9.1 mmol/L (-2.0-2.0)
[2020-03-25 04:44] LABS: ABG ALLEN TEST POS; ABG HCO3 32.7 mmol/L (22-26)
[2020-03-25] MEDS ORDERED: NS 100 ML IV + SPIKE MINIBAG* 100 ML IV ONE (05:37)
[2020-03-25 06:00] LABS: BASOPHILS % (AUTO) 0.2 % (0.2-1.0); EOSINOPHILS % (AUTO) 0.2 % (0.9-2.9); HEMATOCRIT 41.2 % (36.0-47.0); HEMOGLOBIN 13.9 g/dL (12.0-16.0); LYMPHOCYTES % (AUTO) 7.9 % (21.0-51.0); MEAN CORPUSCULAR HEMOGLOBIN 29.1 pg (27.0-34.0); MEAN CORPUSCULAR HGB CONC 33.7 g/dL (33.0-35.0); MEAN CORPUSCULAR VOLUME 86.4 fL (80.0-100.0); MEAN PLATELET VOLUME 8.6 fL (7.4-11.0); MONOCYTES # (AUTO) 0.3 x10^3/uL (0.3-0.8); MONOCYTES % (AUTO) 2.2 % (0.0-13.0); NEUTROPHILS # (AUTO) 10.9 x10^3/uL (2.2-4.8); NEUTROPHILS % (AUTO) 89.5 % (42.0-75.0); PLATELET COUNT 292 X10^3/uL (150.0-450.0); RED BLOOD COUNT 4.77 X10^6/uL (3.5-5.4); RED CELL DISTRIBUTION WIDTH 14.4 % (11.6-16.5); WHITE BLOOD COUNT 12.2 X10^3/uL (3.6-10.0)
[2020-03-25 06:23] LABS: ALANINE AMINOTRANSFERASE 39 Units/L (12-78); ALBUMIN 2.4 g/dL (3.4-5.0); ALKALINE PHOSPHATASE 96 Units/L (46-116); ASPARTATE AMINO TRANSFERASE 51 Units/L (15-37); BLOOD UREA NITROGEN 6 mg/dL (7-18); CALCIUM 7.9 mg/dL (8.5-10.1); CARBON DIOXIDE 30.4 mmol/L (21-32); CHLORIDE 104 mmol/L (98-107); COR CA(FOR HYPOALB) 9.2 mg/dL (8.5-10.1); MAGNESIUM 1.8 mg/dL (1.7-2.9); SODIUM 142 mmol/L (136-145); TOTAL PROTEIN 6.5 g/dL (6.4-8.2); eGFR NON BLACK RACES > 60 (>60)
--- NOTE | 2020-03-25 06:26 | RAD ---
HISTORYShortness of breathSTUDYCHEST, 1 [id number] is within normal limits in size. The susan are normal. Bilateral alveolar infiltrates are again identified however there has been significant improvement bilaterally when compared with the prior examination. No pleural effusions are identified. Bony thorax is unremarkable.IMPRESSIONImproving bilateral alveolar infiltratesElectronically signed by: ERNIE ORR (March 25, 2020 06:25:30)
[2020-03-25] MEDS: FORTAZ or TAZICEF VIAL INJ 1 G in NS 100 ML IV + SPIKE MINIBAG* 100 ML IV SCH ×3 (06:31→21:00)
[2020-03-25] MEDS: TESSALON PERLES PO SCH ×3 (06:31→21:00)
[2020-03-25] MEDS: NS 1/2 1000 ML IV 1,000 ML IV SCH (06:31)
[2020-03-25 06:47] LABS: PLATELET MORPHOLOGY COMMENT NORMAL (NORMAL)
[2020-03-25 06:52] LABS: ERYTHROCYTE SEDIMENTATION RATE 75 MM/HOUR (0-20)
[2020-03-25] MEDS ORDERED: MORPHINE SULFATE INJ 2 MG INJ ONE (07:22)
[2020-03-25] MEDS: MORPHINE SULFATE INJ 2 MG INJ IVP PRN ×2 (07:40→20:38)
[2020-03-25] MEDS: DUONEB 0.5 MG/3 MG (3 mL) NEB SCH ×4 (09:05→20:30)
[2020-03-25] MEDS: LOVENOX INJ 40 MG SYR SC SCH (09:17)
[2020-03-25] MEDS: PAXIL PO SCH (09:18)
[2020-03-25] MEDS: PLAQUENIL PO SCH ×2 (09:18→20:40)
[2020-03-25] MEDS: THIAMINE HCL INJ IM SCH (09:19)
[2020-03-25] MEDS: SYNTHROID 75 mcg TAB PO SCH (09:19)
[2020-03-25] MEDS: TUSSIONEX PENNKINETIC SUSP PO SCH ×2 (09:19→20:38)
[2020-03-25] MEDS: VITAMIN A PO SCH (09:20)
[2020-03-25] MEDS: VITAMIN D3 125 mcg (5,000 UNITS) PO SCH (09:21)
[2020-03-25] MEDS: ZITHROMAX INJ 500 MG VIAL 500 MG in NS 250 ML IV 250 ML IV SCH (09:21)
[2020-03-25] MEDS: ZINC SULFATE PO SCH ×2 (09:21→20:40)
[2020-03-25] MEDS ORDERED: FIORICET TAB PO PRN (10:07)
[2020-03-25 11:46] VITALS: BMI 27.8
--- NOTE | 2020-03-25 13:46 | PCM.PROG ---
Progress Note - Progress Note for Day of Date of Exam: 03/25/20 - Subjective Subjective: WAS ADMITTED FOR PNEUMONIA. SHE IS COVID-19 POSITIVE. TODAY, SHE IS ALERT AND ORIENTED, LYING IN BED ON MORNING ROUNDS. SHE CONTINUES WITH COMPLAINTS OF COUGH AND SHORTNESS OF BREATH. PATIENT REPORTS THAT SHORTNESS OF BREATH IS WORSE TODAY. PATIENTS BREATHING APPEARS TO BE MORE LABORED. SHORTNESS OF BREATH IS WORSE WITH ANY MOVEMENT. ON EXAMINATION, HEART IS REGULAR IN RATE AND RHYTHM. BILATERAL LUNGS ARE NOTED WITH SCATTERED WHEEZING AND RHONCHI. ABDOMEN IS ROUND, SOFT, AND NON-TENDER WITH NORMAL BOWEL SOUNDS IN ALL QUADRANTS. HER VITALS THIS MORNING ARE: 97.7-96-27-90%-162/83. LABS WERE OBTAINED. ABNORMAL LAB VALUES INCLUDE THE FOLLOWING: WBC 12.2, BUN 6, GLUCOSE 102, CALCIUM 7.9, CRP 104.80, ALBUMIN 2.4. BLOOD CULTURES ARE NEGATIVE. SPUTUM CULTURE IS PENDING. AN ABG WAS REPEATED THIS MORNING AND REVEALED: PH 7.520, PC02 40.0, P02 71.0, HC03 32.7, 02 SATURATION 96.0, BASE EXCESS 9.1. A CHEST XRAY WAS OBTAINED AND REVEALED: Improving bilateral alveolar infiltrates. SHE IS CURRENTLY RECEIVING 1/2NS AT 75 ML/HR, AZITHROMYCIN 500MG IV DAILY, FORTAZ 1G IV TID, SOLU-MEDROL 40MG IV Q8H, DUONEBS, PLAQUENIL 200MG PO BID, ALBUTEROL 2 PUFFS QID, ROBITUSSIN QID, ZOFRAN 4MG IV Q6H PRN, COLACE, THE POTASSIUM AND MAGNESIUM PROTOCOLS, AND HOME MEDICATIONS WERE RESUMED. TODAY, WE WILL ORDER FOR PATIENT TO WEAR THE BIPAP. OTHERWISE, WE PLAN TO FOLLOW UP WITH AM LABS AND CHEST XRAY AND CONTINUE TO MONITOR. - Past Medical Family Social History Past Med/Fam/Surg Hx: No changes since H&P Allergies: Allergies No Known Drug Allergies Allergy (Verified 03/15/20 22:35) - Review of Systems ROS: No change since H&P - Vital Signs and I&O's Vital Signs: Temperature 99.5 F Pulse Rate 96 Respiratory Rate 31 Blood Pressure 142/77 O2 Sat by Pulse Oximetry 96 Intake and Output: Intake & Output 03/23/20 03/24/20 03/25/20 03/26/20 11:59 11:59 11:59 11:59 Intake Total 2893 / 2893 2943 / 2943 3159 / 3159 Output Total 0 / 0 1500 / 1500 Balance 2893 / 2893 2943 / 2943 1659 / 1659 - Physical Exam Oriented: Normal Eyes: Normal Ear: Normal Nose: Normal Throat: Normal Respiratory: Generalized, Wheezes, Rhonchi Cardiovascular: Normal. negative: S3, S4, Murmur : Normal Auscultation: Bowel Sounds: Normal Tenderness: Normal Skin: Normal Musculoskeletal: Normal Psychiatric: Normal Mood Description: Calm Affect: Normal Speech Pattern: Delayed - Laboratory and Diagnostics Result Diagrams: 03/25/20 05:36 03/25/20 05:36 Labs: 03/24/20 07:30 Sputum - Expectorated Sputum Sputum Culture - Preliminary 03/24/20 07:30 Sputum - Expectorated Sputum - Final 03/17/20 16:42 Blood Blood Culture - Final 03/17/20 16:40 Blood Blood Culture - Final Laboratory WBC 12.2 X10^3/uL (3.6-10.0) H 03/25/20 05:36 RBC 4.77 X10^6/uL (3.5-5.4) 03/25/20 05:36 Hgb 13.9 g/dL (12.0-16.0) 03/25/20 05:36 Hct 41.2 % (36.0-47.0) 03/25/20 05:36 MCV 86.4 fL (80.0-100.0) 03/25/20 05:36 MCH 29.1 pg (27.0-34.0) 03/25/20 05:36 MCHC 33.7 g/dL (33.0-35.0) 03/25/20 05:36 RDW 14.4 % (11.6-16.5) 03/25/20 05:36 Plt Count 292 X10^3/uL (150.0-450.0) 03/25/20 05:36 Plt Count Comment Adequate (ADEQUATE) 03/25/20 05:36 MPV 8.6 fL (7.4-11.0) 03/25/20 05:36 Neut % (Auto) 89.5 % (42.0-75.0) H 03/25/20 05:36 Lymph % (Auto) 7.9 % (21.0-51.0) L 03/25/20 05:36 [place] % (Auto) 2.2 % (0.0-13.0) 03/25/20 05:36 Eos % (Auto) 0.2 % (0.9-2.9) L 03/25/20 05:36 Baso % (Auto) 0.2 % (0.2-1.0) 03/25/20 05:36 Neut # (Auto) 10.9 x10^3/uL (2.2-4.8) H 03/25/20 05:36 Lymph # (Auto) 1.0 X10^3/uL (1.3-2.9) L 03/25/20 05:36 [place] # (Auto) 0.3 x10^3/uL (0.3-0.8) 03/25/20 05:36 Eos # (Auto) 0.0 x10^3/uL (0.0-0.2) 03/25/20 05:36 Baso # (Auto) 0.0 X10^3/uL (0.0-0.1) 03/25/20 05:36 Absolute Nucleated RBC 0.2 /100WBC 03/25/20 05:36 Total Counted 100 03/25/20 05:36 Neutrophils % (Manual) 83 % (39-76) H 03/25/20 05:36 Band Neutrophils % 3 % (0-10) 03/24/20 05:41 Lymphocytes % (Manual) 17 % (13-43) 03/25/20 05:36 Monocytes % (Manual) 3 % (4-9) L 03/24/20 05:41 Plt Morphology Comment Normal (NORMAL) 03/25/20 05:36 RBC Morphology Normal (NORMAL) 03/25/20 05:36 ESR 75 MM/HOUR (0-20) H 03/25/20 05:36 Sample Site Lr 03/25/20 04:30 ABG pH 7.520 (7.35-7.45) H 03/25/20 04:30 ABG pCO2 40.0 mmHg (35.0-45.0) 03/25/20 04:30 ABG pO2 71.0 mmHg (80.0-100.0) L 03/25/20 04:30 ABG HCO3 32.7 mmol/L (22-26) H* 03/25/20 04:30 ABG O2 Saturation 96.0 % (90-100) 03/25/20 04:30 ABG Base Excess 9.1 mmol/L (-2.0-2.0) H 03/25/20 04:30 Cabrera Test Pos 03/25/20 04:30 A-a Gradient 414.0 mmHg 03/25/20 04:30 FiO2 75.0 03/25/20 04:30 Blood Gas Comments Diego well ae 03/25/20 04:30 Sodium 142 mmol/L (136-145) 03/25/20 05:36 Corrected Sodium TNP 03/25/20 05:36 Potassium 3.5 mmol/L (3.5-5.1) 03/25/20 05:36 Chloride 104 mmol/L (98-107) 03/25/20 05:36 Carbon Dioxide 30.4 mmol/L (21-32) 03/25/20 05:36 BUN 6 mg/dL (7-18) L 03/25/20 05:36 Creatinine 0.60 mg/dL (0.55-1.02) 03/25/20 05:36 Est GFR (MDRD) Af Amer > 60 (>60) 03/25/20 05:36 Est GFR (MDRD) Non-Af > 60 (>60) 03/25/20 05:36 Glucose 102 mg/dL (65-99) H 03/25/20 05:36 Calcium 7.9 mg/dL (8.5-10.1) L 03/25/20 05:36 Corrected Calcium 9.2 mg/dL (8.5-10.1) 03/25/20 05:36 Magnesium 1.8 mg/dL (1.7-2.9) 03/25/20 05:36 Total Bilirubin 0.40 mg/dL (0.2-1.0) 03/25/20 05:36 AST 51 Units/L (15-37) H 03/25/20 05:36 ALT 39 Units/L (12-78) 03/25/20 05:36 Alkaline Phosphatase 96 Units/L (46-116) 03/25/20 05:36 C-Reactive Protein 104.80 mg/L (0-3.0) H 03/25/20 05:36 Total Protein 6.5 g/dL (6.4-8.2) 03/25/20 05:36 Albumin 2.4 g/dL (3.4-5.0) L 03/25/20 05:36 Globulin 4.1 g/dL (2.5-4.5) 03/25/20 05:36 Albumin/Globulin Ratio 0.6 Ratio (1.1-2.1) L 03/25/20 05:36 Specimen Type Catherized urine 03/25/20 02:45 Urine Color Straw (YELLOW) 03/25/20 02:45 Urine Appearance Clear (CLEAR) 03/25/20 02:45 Urine pH 8.0 (5.0 - 8.0) 03/25/20 02:45 Ur Specific [place] 1.015 (1.000-1.030) 03/25/20 02:45 Urine Protein Negative (NEGATIVE) 03/25/20 02:45 Urine Glucose (UA) Negative (NEGATIVE) 03/25/20 02:45 Urine Ketones Negative (NEGATIVE) 03/25/20 02:45 Urine Occult Blood Negative (NEGATIVE) 03/25/20 02:45 Urine Nitrite Negative (NEGATIVE) 03/25/20 02:45 Urine Bilirubin Negative (NEGATIVE) 03/25/20 02:45 Urine Urobilinogen Normal (NORMAL) 03/25/20 02:45 Ur Leukocyte Esterase Negative (NEGATIVE) 03/25/20 02:45 - Plan (1) COVID-19 virus infection Status: Acute Plan: BIPAP, 1/2NS AT 75 ML/HR, AZITHROMYCIN 500MG IV DAILY, FORTAZ 1G IV TID, PLAQUENIL 200MG PO BID, DUONEBS, SOLU-MEDROL 40MG IV Q8H, IS Q1H, ALBUTEROL 2 PUFFS QID, AND HOME MEDICATIONS WERE RESUMED (2) Pneumonia Status: Acute Qualifiers: Pneumonia type: due to unspecified organism Laterality: bilateral Lung location: unspecified part of lung Qualified Code(s): J18.9 - Pneumonia, unspecified organism Plan: 1/2NS AT 75 ML/HR, AZITHROMYCIN 500MG IV DAILY, FORTAZ 1G IV TID, PLAQUENI L 200MG PO BID, DUONEBS, SOLU-MEDROL 40MG IV Q8H, IS Q1H, ALBUTEROL 2 PUFFS QID, AND HOME MEDICATIONS WERE RESUMED
[2020-03-25] MEDS: ESTRADIOL TOP SCH (17:19)
[2020-03-25] MEDS: COLACE CAP 100 MG PO SCH (20:41)
[2020-03-26] MEDS: NS 100 ML IV 100 ML with ASCORBIC ACID INJ MULTI-DOSE VIAL 1,500 MG IV SCH ×8 (03:15→21:15)
[2020-03-26] MEDS ORDERED: NS 1/2 1000 ML IV 1,000 ML IV ONE (05:32)
[2020-03-26] MEDS: NS 1/2 1000 ML IV 1,000 ML IV SCH (05:34)
[2020-03-26] MEDS: FORTAZ or TAZICEF VIAL INJ 1 G in NS 100 ML IV + SPIKE MINIBAG* 100 ML IV SCH ×3 (05:35→21:14)
[2020-03-26] MEDS: TESSALON PERLES PO SCH ×3 (05:36→21:17)
[2020-03-26 05:37] LABS: ABG BASE EXCESS 4.9 mmol/L (-2.0-2.0); ABG HCO3 29.2 mmol/L (22-26)
[2020-03-26 05:38] LABS: ABG ALLEN TEST POS
[2020-03-26] MEDS: ZOFRAN INJ 4 MG VIAL IVP PRN (06:37)
--- NOTE | 2020-03-26 07:09 | RAD ---
HISTORYSOBSTUDYPortable AP [id number] heart size. Persistent bilateral mixed interstitial-alveolar infiltrates with additional improvement since 1 day earlier. No new consolidation, extrapulmonary air or large pleural effusion.IMPRESSIONImproved aeration of the lungs with decreasing infiltrates/edema since 03/25/2020.Electronically signed by: LAURA FORD (March 26, 2020 07:08:20)
[2020-03-26 07:15] LABS: ALANINE AMINOTRANSFERASE 33 Units/L (12-78); ALBUMIN 2.2 g/dL (3.4-5.0); ALKALINE PHOSPHATASE 84 Units/L (46-116); ASPARTATE AMINO TRANSFERASE 50 Units/L (15-37); BLOOD UREA NITROGEN 11 mg/dL (7-18); CARBON DIOXIDE 30.8 mmol/L (21-32); CHLORIDE 102 mmol/L (98-107); COR CA(FOR HYPOALB) 9.4 mg/dL (8.5-10.1); SODIUM 139 mmol/L (136-145); TOTAL PROTEIN 6.7 g/dL (6.4-8.2); eGFR NON BLACK RACES > 60 (>60)
[2020-03-26 07:17] LABS: BASOPHILS % (AUTO) 0.2 % (0.2-1.0); EOSINOPHILS # (AUTO) 0.1 x10^3/uL (0.0-0.2); EOSINOPHILS % (AUTO) 0.7 % (0.9-2.9); HEMATOCRIT 42.4 % (36.0-47.0); HEMOGLOBIN 14.4 g/dL (12.0-16.0); LYMPHOCYTES # (AUTO) 0.7 X10^3/uL (1.3-2.9); LYMPHOCYTES % (AUTO) 5.4 % (21.0-51.0); MEAN CORPUSCULAR HEMOGLOBIN 29.7 pg (27.0-34.0); MEAN CORPUSCULAR VOLUME 87.4 fL (80.0-100.0); MEAN PLATELET VOLUME 8.9 fL (7.4-11.0); MONOCYTES # (AUTO) 0.3 x10^3/uL (0.3-0.8); MONOCYTES % (AUTO) 2.1 % (0.0-13.0); NEUTROPHILS # (AUTO) 11.3 x10^3/uL (2.2-4.8); NEUTROPHILS % (AUTO) 91.6 % (42.0-75.0); PLATELET COUNT 197 X10^3/uL (150.0-450.0); RED BLOOD COUNT 4.85 X10^6/uL (3.5-5.4); RED CELL DISTRIBUTION WIDTH 14.7 % (11.6-16.5); WHITE BLOOD COUNT 12.3 X10^3/uL (3.6-10.0)
[2020-03-26 08:23] LABS: BAND NEUTROPHILS % 9 % (0-10); PLATELET MORPHOLOGY COMMENT NORMAL (NORMAL)
[2020-03-26] MEDS: DUONEB 0.5 MG/3 MG (3 mL) NEB SCH ×4 (08:30→20:30)
[2020-03-26 08:39] LABS: ERYTHROCYTE SEDIMENTATION RATE 49 MM/HOUR (0-20)
[2020-03-26] MEDS: MORPHINE SULFATE INJ 2 MG INJ IVP PRN ×2 (09:08→18:51)
[2020-03-26] MEDS: LOVENOX INJ 40 MG SYR SC SCH (09:20)
[2020-03-26] MEDS: VITAMIN A PO SCH (09:24)
[2020-03-26] MEDS: PAXIL PO SCH (09:24)
[2020-03-26] MEDS: PLAQUENIL PO SCH ×2 (09:24→21:18)
[2020-03-26] MEDS: SYNTHROID 75 mcg TAB PO SCH (09:25)
[2020-03-26] MEDS: ZITHROMAX INJ 500 MG VIAL 500 MG in NS 250 ML IV 250 ML IV SCH (09:25)
[2020-03-26] MEDS: VITAMIN D3 125 mcg (5,000 UNITS) PO SCH (09:26)
[2020-03-26] MEDS: ZINC SULFATE PO SCH ×2 (09:26→21:18)
[2020-03-26] MEDS: TUSSIONEX PENNKINETIC SUSP PO SCH ×2 (09:26→21:16)
--- NOTE | 2020-03-26 17:32 | PCM.PROG ---
Progress Note - Progress Note for Day of Date of Exam: 03/26/20 - Subjective Subjective: WAS ADMITTED FOR PNEUMONIA. SHE IS COVID-19 POSITIVE. TODAY, SHE IS ALERT AND ORIENTED, LYING IN BED ON MORNING ROUNDS. SHE CONTINUES WITH COMPLAINTS OF COUGH AND SHORTNESS OF BREATH. SHE DENIES IMPROVEMENT IN SYMPTOMS TODAY. SHE IS UTILIZING THE BIPAP AT THIS TIME. ON EXAMINATION, HEART IS REGULAR IN RATE AND RHYTHM. BILATERAL LUNGS ARE NOTED WITH SCATTERED WHEEZING AND RHONCHI. ABDOMEN IS ROUND, SOFT, AND NON-TENDER WITH NORMAL BOWEL SOUNDS IN ALL QUADRANTS. HER VITALS THIS MORNING ARE: 99.8-105-26-93%-125/62. LABS WERE OBTAINED. ABNORMAL LAB VALUES INCLUDE THE FOLLOWING: WBC 12.3, CALCIUM 8.0, AST 50, CRP 335.00, ALBUMIN 2.2. AN ABG WAS REPEATED THIS MORNING AND REVEALED: PH 7.460, PC02 41.0, P02 70.0, HC03 29.2, 02 SATURATION 95.0, BASE EXCESS 4.9. A CHEST XRAY WAS OBTAINED AND REVEALED: Stable heart size. Persistent bilateral mixed interstitial-alveolar infiltrates with additional improvement since 1 day earlier. No new consolidation, extrapulmonary air or large pleural effusion. SHE IS CURRENTLY RECEIVING 1/2NS AT 75 ML/HR, AZITHROMYCIN 500MG IV DAILY, FORTAZ 1G IV TID, DUONEBS, PLAQUENIL 200MG PO BID, ALBUTEROL 2 PUFFS QID, ROBITUSSIN QID, ZOFRAN 4MG IV Q6H PRN, COLACE, THE POTASSIUM AND MAGNESIUM PROTOCOLS, AND HOME MEDICATIONS WERE RESUMED. WE WILL CONTINUE WITH CURRENT PLAN OF CARE TODAY. OTHERWISE, WE PLAN TO FOLLOW UP WITH AM LABS AND CHEST XRAY AND CONTINUE TO MONITOR. - Past Medical Family Social History Past Med/Fam/Surg Hx: No changes since H&P Allergies: Allergies No Known Drug Allergies Allergy (Verified 03/15/20 22:35) - Review of Systems ROS: No change since H&P - Vital Signs and I&O's Vital Signs: Temperature 99.8 F Pulse Rate 91 Respiratory Rate 28 Blood Pressure 158/73 O2 Sat by Pulse Oximetry 95 Intake and Output: Intake & Output 03/24/20 03/25/20 03/26/20 03/27/20 11:59 11:59 11:59 11:59 Intake Total 2943 / 2943 3159 / 3159 1905 / 1905 1235 / 1235 Output Total 1500 / 1500 1900 / 1900 750 / 750 Balance 2943 / 2943 1659 / 1659 5 / 5 485 / 485 - Physical Exam Oriented: Normal Eyes: Normal Ear: Normal Nose: Normal Throat: Normal Respiratory: Generalized, Wheezes, Rhonchi Cardiovascular: Normal. negative: S3, S4, Murmur : Normal Auscultation: Bowel Sounds: Normal Palpation: Normal Tenderness: Normal Skin: Normal Musculoskeletal: Normal Psychiatric: Normal Mood Description: Calm Affect: Normal Speech Pattern: Delayed - Laboratory and Diagnostics Result Diagrams: 03/26/20 06:10 03/26/20 06:10 Labs: 03/24/20 07:30 Sputum - Expectorated Sputum Sputum Culture - Final 03/24/20 07:30 Sputum - Expectorated Sputum - Final 03/17/20 16:42 Blood Blood Culture - Final 03/17/20 16:40 Blood Blood Culture - Final Laboratory WBC 12.3 X10^3/uL (3.6-10.0) H 03/26/20 06:10 RBC 4.85 X10^6/uL (3.5-5.4) 03/26/20 06:10 Hgb 14.4 g/dL (12.0-16.0) 03/26/20 06:10 Hct 42.4 % (36.0-47.0) 03/26/20 06:10 MCV 87.4 fL (80.0-100.0) 03/26/20 06:10 MCH 29.7 pg (27.0-34.0) 03/26/20 06:10 MCHC 34.0 g/dL (33.0-35.0) 03/26/20 06:10 RDW 14.7 % (11.6-16.5) 03/26/20 06:10 Plt Count 197 X10^3/uL (150.0-450.0) 03/26/20 06:10 Plt Count Comment Adequate (ADEQUATE) 03/26/20 06:10 MPV 8.9 fL (7.4-11.0) 03/26/20 06:10 Neut % (Auto) 91.6 % (42.0-75.0) H 03/26/20 06:10 Lymph % (Auto) 5.4 % (21.0-51.0) L 03/26/20 06:10 [place] % (Auto) 2.1 % (0.0-13.0) 03/26/20 06:10 Eos % (Auto) 0.7 % (0.9-2.9) L 03/26/20 06:10 Baso % (Auto) 0.2 % (0.2-1.0) 03/26/20 06:10 Neut # (Auto) 11.3 x10^3/uL (2.2-4.8) H 03/26/20 06:10 Lymph # (Auto) 0.7 X10^3/uL (1.3-2.9) L 03/26/20 06:10 [place] # (Auto) 0.3 x10^3/uL (0.3-0.8) 03/26/20 06:10 Eos # (Auto) 0.1 x10^3/uL (0.0-0.2) 03/26/20 06:10 Baso # (Auto) 0.0 X10^3/uL (0.0-0.1) 03/26/20 06:10 Absolute Nucleated RBC 0.2 /100WBC 03/26/20 06:10 Total Counted 100 03/26/20 06:10 Neutrophils % (Manual) 81 % (39-76) H 03/26/20 06:10 Band Neutrophils % 9 % (0-10) 03/26/20 06:10 Lymphocytes % (Manual) 7 % (13-43) L 03/26/20 06:10 Monocytes % (Manual) 2 % (4-9) L 03/26/20 06:10 Eosinophils % (Manual) 1 % (0-6) 03/26/20 06:10 Plt Morphology Comment Normal (NORMAL) 03/26/20 06:10 RBC Morphology Normal (NORMAL) 03/26/20 06:10 ESR 49 MM/HOUR (0-20) H 03/26/20 06:10 Sample Site Rr 03/26/20 05:00 ABG pH 7.460 (7.35-7.45) H 03/26/20 05:00 ABG pCO2 41.0 mmHg (35.0-45.0) 03/26/20 05:00 ABG pO2 70.0 mmHg (80.0-100.0) L 03/26/20 05:00 ABG HCO3 29.2 mmol/L (22-26) H 03/26/20 05:00 ABG O2 Saturation 95.0 % (90-100) 03/26/20 05:00 ABG Base Excess 4.9 mmol/L (-2.0-2.0) H 03/26/20 05:00 Cabrera Test Pos 03/26/20 05:00 A-a Gradient 307.0 mmHg 03/26/20 05:00 FiO2 60.0 03/26/20 05:00 Blood Gas Comments Diego wel sw 03/26/20 05:00 Sodium 139 mmol/L (136-145) 03/26/20 06:10 Corrected Sodium TNP 03/26/20 06:10 Potassium 4.2 mmol/L (3.5-5.1) 03/26/20 06:10 Chloride 102 mmol/L (98-107) 03/26/20 06:10 Carbon Dioxide 30.8 mmol/L (21-32) 03/26/20 06:10 BUN 11 mg/dL (7-18) 03/26/20 06:10 Creatinine 0.60 mg/dL (0.55-1.02) 03/26/20 06:10 Est GFR (MDRD) Af Amer > 60 (>60) 03/26/20 06:10 Est GFR (MDRD) Non-Af > 60 (>60) 03/26/20 06:10 Glucose 65 mg/dL (65-99) 03/26/20 06:10 Calcium 8.0 mg/dL (8.5-10.1) L 03/26/20 06:10 Corrected Calcium 9.4 mg/dL (8.5-10.1) 03/26/20 06:10 Magnesium 1.8 mg/dL (1.7-2.9) 03/25/20 05:36 Total Bilirubin 0.60 mg/dL (0.2-1.0) 03/26/20 06:10 AST 50 Units/L (15-37) H 03/26/20 06:10 ALT 33 Units/L (12-78) 03/26/20 06:10 Alkaline Phosphatase 84 Units/L (46-116) 03/26/20 06:10 C-Reactive Protein 335.00 mg/L (0-3.0) H 03/26/20 06:10 Total Protein 6.7 g/dL (6.4-8.2) 03/26/20 06:10 Albumin 2.2 g/dL (3.4-5.0) L 03/26/20 06:10 Globulin 4.5 g/dL (2.5-4.5) 03/26/20 06:10 Albumin/Globulin Ratio 0.5 Ratio (1.1-2.1) L 03/26/20 06:10 Specimen Type Catherized urine 03/25/20 02:45 Urine Color Straw (YELLOW) 03/25/20 02:45 Urine Appearance Clear (CLEAR) 03/25/20 02:45 Urine pH 8.0 (5.0 - 8.0) 03/25/20 02:45 Ur Specific [place] 1.015 (1.000-1.030) 03/25/20 02:45 Urine Protein Negative (NEGATIVE) 03/25/20 02:45 Urine Glucose (UA) Negative (NEGATIVE) 03/25/20 02:45 Urine Ketones Negative (NEGATIVE) 03/25/20 02:45 Urine Occult Blood Negative (NEGATIVE) 03/25/20 02:45 Urine Nitrite Negative (NEGATIVE) 03/25/20 02:45 Urine Bilirubin Negative (NEGATIVE) 03/25/20 02:45 Urine Urobilinogen Normal (NORMAL) 03/25/20 02:45 Ur Leukocyte Esterase Negative (NEGATIVE) 03/25/20 02:45 - Plan (1) COVID-19 virus infection Status: Acute Plan: BIPAP, 1/2NS AT 75 ML/HR, AZITHROMYCIN 500MG IV DAILY, FORTAZ 1G IV TID, PLAQUENIL 200MG PO BID, DUONEBS, SOLU-MEDROL 40MG IV Q8H, IS Q1H, ALBUTEROL 2 PUFFS QID, AND HOME MEDICATIONS WERE RESUMED (2) Pneumonia Status: Acute Qualifiers: Pneumonia type: due to unspecified organism Laterality: bilateral Lung location: unspecified part of lung Qualified Code(s): J18.9 - Pneumonia, unspecified organism Plan: 1/2NS AT 75 ML/HR, AZITHROMYCIN 500MG IV DAILY, FORTAZ 1G IV TID, PLAQUENIL 200MG PO BID, DUONEBS, SOLU-MEDROL 40MG IV Q8H, IS Q1H, ALBUTEROL 2 PUFFS QID, AND HOME MEDICATIONS WERE RESUMED
[2020-03-26] MEDS ORDERED: NYSTATIN SUSP ONE (18:37)
[2020-03-26] MEDS: NYSTATIN SUSP PO SCH ×3 (19:18→21:57)
[2020-03-26] MEDS ORDERED: D50W ABBOJECT SYR IV ONE (20:08)
[2020-03-26] MEDS ORDERED: D50W ABBOJECT SYR ONE ×2 (20:24→20:27)
[2020-03-26] MEDS: D5W 1000 ML IV 1,000 ML IV SCH (20:58)
[2020-03-26] MEDS: RESTORIL CAP 15 MG PO PRN (21:17)
[2020-03-26] MEDS: COLACE CAP 100 MG PO SCH (21:17)
[2020-03-27] MEDS: XANAX PO PRN ×2 (01:00→19:49)
[2020-03-27] MEDS: NS 100 ML IV 100 ML with ASCORBIC ACID INJ MULTI-DOSE VIAL 1,500 MG IV SCH ×8 (03:00→21:01)
[2020-03-27] MEDS: MORPHINE SULFATE INJ 2 MG INJ IVP PRN (03:45)
[2020-03-27 04:57] LABS: ABG BASE EXCESS 6.6 mmol/L (-2.0-2.0)
[2020-03-27 04:58] LABS: ABG ALLEN TEST POS; ABG HCO3 31.3 mmol/L (22-26)
[2020-03-27] MEDS: FORTAZ or TAZICEF VIAL INJ 1 G in NS 100 ML IV + SPIKE MINIBAG* 100 ML IV SCH ×3 (05:49→21:51)
[2020-03-27] MEDS: TESSALON PERLES PO SCH ×3 (05:50→21:02)
[2020-03-27 06:49] LABS: BASOPHILS % (AUTO) 0.2 % (0.2-1.0); EOSINOPHILS # (AUTO) 0.2 x10^3/uL (0.0-0.2); EOSINOPHILS % (AUTO) 1.7 % (0.9-2.9); HEMATOCRIT 40.4 % (36.0-47.0); HEMOGLOBIN 13.9 g/dL (12.0-16.0); LYMPHOCYTES # (AUTO) 0.7 X10^3/uL (1.3-2.9); LYMPHOCYTES % (AUTO) 6.6 % (21.0-51.0); MEAN CORPUSCULAR HEMOGLOBIN 29.6 pg (27.0-34.0); MEAN CORPUSCULAR HGB CONC 34.3 g/dL (33.0-35.0); MEAN CORPUSCULAR VOLUME 86.4 fL (80.0-100.0); MEAN PLATELET VOLUME 8.6 fL (7.4-11.0); MONOCYTES # (AUTO) 0.3 x10^3/uL (0.3-0.8); NEUTROPHILS # (AUTO) 9.6 x10^3/uL (2.2-4.8); NEUTROPHILS % (AUTO) 88.5 % (42.0-75.0); PLATELET COUNT 157 X10^3/uL (150.0-450.0); RED BLOOD COUNT 4.68 X10^6/uL (3.5-5.4); RED CELL DISTRIBUTION WIDTH 14.6 % (11.6-16.5); WHITE BLOOD COUNT 10.8 X10^3/uL (3.6-10.0)
[2020-03-27 06:57] LABS: ALANINE AMINOTRANSFERASE 24 Units/L (12-78); ALBUMIN 1.9 g/dL (3.4-5.0); ALKALINE PHOSPHATASE 81 Units/L (46-116); ASPARTATE AMINO TRANSFERASE 42 Units/L (15-37); BLOOD UREA NITROGEN 10 mg/dL (7-18); CALCIUM 7.9 mg/dL (8.5-10.1); CARBON DIOXIDE 27.3 mmol/L (21-32); CHLORIDE 101 mmol/L (98-107); COR CA(FOR HYPOALB) 9.6 mg/dL (8.5-10.1); CREATININE 0.56 mg/dL (0.55-1.02); SODIUM 138 mmol/L (136-145); TOTAL PROTEIN 6.3 g/dL (6.4-8.2); eGFR NON BLACK RACES > 60 (>60)
--- NOTE | 2020-03-27 07:42 | RAD ---
History: [Dyspnea and respiratory distress].Exam: [Single portable view chest].Comparison: [March 26, 2020].Findings:The trachea is midline. The cardiac silhouette is mildly enlarged. Hazy, diffuse, ground-glass changes and interstitial disease remain with slightly worsening right midlung zone right lower lobe airspace disease. These findings can be seen with atypical edema or infection/pneumonia. Please correlate medically. Dense retrocardiac airspace disease remains. No other changes seen.Impression:[As above].Electronically signed by: MAY FAIRBANKS III (March 27, 2020 07:41:28)
[2020-03-27] MEDS: DUONEB 0.5 MG/3 MG (3 mL) NEB SCH ×5 (08:15→21:00)
[2020-03-27] MEDS: LOVENOX INJ 40 MG SYR SC SCH (08:16)
[2020-03-27] MEDS: SYNTHROID 75 mcg TAB PO SCH (08:17)
[2020-03-27] MEDS: PAXIL PO SCH (08:17)
[2020-03-27] MEDS: TUSSIONEX PENNKINETIC SUSP PO SCH ×2 (08:17→21:02)
[2020-03-27] MEDS: ZINC SULFATE PO SCH ×2 (08:18→21:02)
[2020-03-27] MEDS: NYSTATIN SUSP PO SCH ×4 (08:18→21:01)
[2020-03-27] MEDS: ZITHROMAX INJ 500 MG VIAL 500 MG in NS 250 ML IV 250 ML IV SCH (08:18)
[2020-03-27] MEDS: PLAQUENIL PO SCH ×2 (08:24→21:02)
[2020-03-27] MEDS: VITAMIN A PO SCH (08:25)
[2020-03-27] MEDS: VITAMIN D3 125 mcg (5,000 UNITS) PO SCH (08:25)
[2020-03-27] MEDS: MORPHINE SULFATE PCA 30 MG IVP PRN (11:09)
[2020-03-27] MEDS: PROCALAMINE 3 % 1,000 ML IV SCH (11:10)
[2020-03-27] MEDS: ZOVIRAX TOP SCH ×3 (12:27→17:35)
[2020-03-27] MEDS: COLACE CAP 100 MG PO SCH (21:01)
[2020-03-27] MEDS: D5W 1000 ML IV 1,000 ML IV SCH (21:01)
--- NOTE | 2020-03-27 22:22 | PCM.PROG ---
Progress Note - Progress Note for Day of Date of Exam: 03/27/20 - Subjective Subjective: WAS ADMITTED FOR PNEUMONIA. SHE IS COVID-19 POSITIVE. TODAY, SHE IS ALERT AND ORIENTED, LYING IN BED ON MORNING ROUNDS. SHE IS CURRENTLY UTILING THE BIPAP. SHE CONTINUES WITH COMPLAINTS OF COUGH AND SHORTNESS OF BREATH. BREATHING IS MORE LABORED TODAY. ON EXAMINATION, HEART IS REGULAR IN RATE AND RHYTHM. BILATERAL LUNGS ARE NOTED WITH SCATTERED WHEEZING AND RHONCHI. ABDOMEN IS ROUND, SOFT, AND NON-TENDER WITH NORMAL BOWEL SOUNDS IN ALL QUADRANTS. HER VITALS THIS MORNING ARE: 99.5-105-29-89%BIPAP-134/62. LABS WERE OBTAINED. ABNORMAL LAB VALUES INCLUDE THE FOLLOWING: WBC 10.8, CALCIUM 7.9, AST 42, CRP INCREASED TO 478.80, TOTAL PROTEIN 6.3, ALBUMIN 1.9. AN ABG WAS REPEATED THIS MORNING AND REVEALED: PH 7.460, P02 60.0, HC03 31.3, 02 SATURATION 92.0, BASE EXCESS 6.6. BLOOD AND SPUTUM CULTURES ARE NEGATIVE. A CHEST XRAY WAS OBTAINED AND REVEALED: The trachea is midline. The cardiac silhouette is mildly enlarged. Hazy, diffuse, ground-glass changes and interstitial disease remain with slightly worsening right midlung zone right lower lobe airspace disease. These findings can be seen with atypical edema or infection/pneumonia. Please correlate medically. Dense retrocardiac airspace disease remains. No other changes seen. SHE IS CURRENTLY RECEIVING 1/2NS AT 75 ML/HR, AZITHROMYCIN 500MG IV DAILY, FORTAZ 1G IV TID, DUONEBS, PLAQUENIL 200MG PO BID, ALBUTEROL 2 PUFFS QID, ROBITUSSIN QID, ZOFRAN 4MG IV Q6H PRN, COLACE, THE POTASSIUM AND MAGNESIUM PROTOCOLS, AND HOME MEDICATIONS WERE RESUMED. WE WILL CONTINUE WITH CURRENT PLAN OF CARE TODAY AND ADD PROCALAMINE IV AND A MORPHINE DRIP AT 1MG/HR. OTHERWISE, WE PLAN TO FOLLOW UP WITH AM LABS AND CHEST XRAY AND CONTINUE TO MONITOR. - Past Medical Family Social History Past Med/Fam/Surg Hx: No changes since H&P Allergies: Allergies No Known Drug Allergies Allergy (Verified 03/15/20 22:35) - Review of Systems ROS: No change since H&P - Vital Signs and I&O's Vital Signs: Temperature 99.3 F Pulse Rate 100 Respiratory Rate 26 Blood Pressure 160/74 O2 Sat by Pulse Oximetry 90 Intake and Output: Intake & Output 03/25/20 03/26/20 03/27/20 03/28/20 11:59 11:59 11:59 11:59 Intake Total 3159 / 3159 1905 / 1905 2255 / 2255 1374 / 1374 Output Total 1500 / 1500 1900 / 1900 1850 / 1850 950 / 950 Balance 1659 / 1659 5 / 5 405 / 405 424 / 424 - Physical Exam Oriented: Normal Eyes: Normal Ear: Normal Nose: Normal Throat: Normal Respiratory: Generalized, Wheezes, Rhonchi Cardiovascular: Normal. negative: S3, S4, Murmur : Normal Auscultation: Bowel Sounds: Normal Palpation: Normal Tenderness: Normal Skin: Normal Musculoskeletal: Normal Psychiatric: Normal Mood Description: Calm Affect: Normal Speech Pattern: Delayed - Laboratory and Diagnostics Result Diagrams: 03/27/20 06:15 03/27/20 06:15 Labs: 03/24/20 07:30 Sputum - Expectorated Sputum Sputum Culture - Final 03/24/20 07:30 Sputum - Expectorated Sputum - Final 03/17/20 16:42 Blood Blood Culture - Final 03/17/20 16:40 Blood Blood Culture - Final Laboratory WBC 10.8 X10^3/uL (3.6-10.0) H 03/27/20 06:15 RBC 4.68 X10^6/uL (3.5-5.4) 03/27/20 06:15 Hgb 13.9 g/dL (12.0-16.0) 03/27/20 06:15 Hct 40.4 % (36.0-47.0) 03/27/20 06:15 MCV 86.4 fL (80.0-100.0) 03/27/20 06:15 MCH 29.6 pg (27.0-34.0) 03/27/20 06:15 MCHC 34.3 g/dL (33.0-35.0) 03/27/20 06:15 RDW 14.6 % (11.6-16.5) 03/27/20 06:15 Plt Count 157 X10^3/uL (150.0-450.0) 03/27/20 06:15 Plt Count Comment Adequate (ADEQUATE) 03/26/20 06:10 MPV 8.6 fL (7.4-11.0) 03/27/20 06:15 Neut % (Auto) 88.5 % (42.0-75.0) H 03/27/20 06:15 Lymph % (Auto) 6.6 % (21.0-51.0) L 03/27/20 06:15 [place] % (Auto) 3.0 % (0.0-13.0) 03/27/20 06:15 Eos % (Auto) 1.7 % (0.9-2.9) 03/27/20 06:15 Baso % (Auto) 0.2 % (0.2-1.0) 03/27/20 06:15 Neut # (Auto) 9.6 x10^3/uL (2.2-4.8) H 03/27/20 06:15 Lymph # (Auto) 0.7 X10^3/uL (1.3-2.9) L 03/27/20 06:15 [place] # (Auto) 0.3 x10^3/uL (0.3-0.8) 03/27/20 06:15 Eos # (Auto) 0.2 x10^3/uL (0.0-0.2) 03/27/20 06:15 Baso # (Auto) 0.0 X10^3/uL (0.0-0.1) 03/27/20 06:15 Absolute Nucleated RBC 0.5 /100WBC 03/27/20 06:15 Total Counted 100 03/26/20 06:10 Neutrophils % (Manual) 81 % (39-76) H 03/26/20 06:10 Band Neutrophils % 9 % (0-10) 03/26/20 06:10 Lymphocytes % (Manual) 7 % (13-43) L 03/26/20 06:10 Monocytes % (Manual) 2 % (4-9) L 03/26/20 06:10 Eosinophils % (Manual) 1 % (0-6) 03/26/20 06:10 Plt Morphology Comment Normal (NORMAL) 03/26/20 06:10 RBC Morphology Normal (NORMAL) 03/26/20 06:10 ESR 49 MM/HOUR (0-20) H 03/26/20 06:10 Sample Site Rr 03/27/20 04:44 ABG pH 7.460 (7.35-7.45) H 03/27/20 04:44 ABG pCO2 44.0 mmHg (35.0-45.0) 03/27/20 04:44 ABG pO2 60.0 mmHg (80.0-100.0) L 03/27/20 04:44 ABG HCO3 31.3 mmol/L (22-26) H* 03/27/20 04:44 ABG O2 Saturation 92.0 % (90-100) 03/27/20 04:44 ABG Base Excess 6.6 mmol/L (-2.0-2.0) H 03/27/20 04:44 Cabrera Test Pos 03/27/20 04:44 A-a Gradient 313.0 mmHg 03/27/20 04:44 FiO2 60.0 03/27/20 04:44 Blood Gas Comments Diego well ae 03/27/20 04:44 Sodium 138 mmol/L (136-145) 03/27/20 06:15 Corrected Sodium TNP 03/27/20 06:15 Potassium 3.6 mmol/L (3.5-5.1) 03/27/20 06:15 Chloride 101 mmol/L (98-107) 03/27/20 06:15 Carbon Dioxide 27.3 mmol/L (21-32) 03/27/20 06:15 BUN 10 mg/dL (7-18) 03/27/20 06:15 Creatinine 0.56 mg/dL (0.55-1.02) 03/27/20 06:15 Est GFR (MDRD) Af Amer > 60 (>60) 03/27/20 06:15 Est GFR (MDRD) Non-Af > 60 (>60) 03/27/20 06:15 Glucose 83 mg/dL (65-99) 03/27/20 06:15 Calcium 7.9 mg/dL (8.5-10.1) L 03/27/20 06:15 Corrected Calcium 9.6 mg/dL (8.5-10.1) 03/27/20 06:15 Magnesium 1.8 mg/dL (1.7-2.9) 03/25/20 05:36 Total Bilirubin 0.40 mg/dL (0.2-1.0) 03/27/20 06:15 AST 42 Units/L (15-37) H 03/27/20 06:15 ALT 24 Units/L (12-78) 03/27/20 06:15 Alkaline Phosphatase 81 Units/L (46-116) 03/27/20 06:15 C-Reactive Protein 478.80 mg/L (0-3.0) H 03/27/20 06:15 Total Protein 6.3 g/dL (6.4-8.2) L 03/27/20 06:15 Albumin 1.9 g/dL (3.4-5.0) L 03/27/20 06:15 Globulin 4.4 g/dL (2.5-4.5) 03/27/20 06:15 Albumin/Globulin Ratio 0.4 Ratio (1.1-2.1) L 03/27/20 06:15 Specimen Type Catherized urine 03/25/20 02:45 Urine Color Straw (YELLOW) 03/25/20 02:45 Urine Appearance Clear (CLEAR) 03/25/20 02:45 Urine pH 8.0 (5.0 - 8.0) 03/25/20 02:45 Ur Specific [place] 1.015 (1.000-1.030) 03/25/20 02:45 Urine Protein Negative (NEGATIVE) 03/25/20 02:45 Urine Glucose (UA) Negative (NEGATIVE) 03/25/20 02:45 Urine Ketones Negative (NEGATIVE) 03/25/20 02:45 Urine Occult Blood Negative (NEGATIVE) 03/25/20 02:45 Urine Nitrite Negative (NEGATIVE) 03/25/20 02:45 Urine Bilirubin Negative (NEGATIVE) 03/25/20 02:45 Urine Urobilinogen Normal (NORMAL) 03/25/20 02:45 Ur Leukocyte Esterase Negative (NEGATIVE) 03/25/20 02:45 - Plan (1) COVID-19 virus infection Status: Acute Plan: BIPAP, 1/2NS AT 75 ML/HR, AZITHROMYCIN 500MG IV DAILY, FORTAZ 1G IV TID, PLAQUENIL 200MG PO BID, DUONEBS, IS Q1H, ALBUTEROL 2 PUFFS QID, AND HOME MEDICATIONS WERE RESUMED (2) Pneumonia Status: Acute Qualifiers: Pneumonia type: due to unspecified organism Laterality: bilateral Lung location: unspecified part of lung Qualified Code(s): J18.9 - Pneumonia, unspecified organism Plan: PROCAL IV, 1/2NS AT 75 ML/HR, AZITHROMYCIN 500MG IV DAILY, FORTAZ 1G IV TID, PLAQUENIL 200MG PO BID, DUONEBS, IS Q1H, ALBUTEROL 2 PUFFS QID, AND HOME MEDICATIONS WERE RESUMED
[2020-03-28] MEDS: ZOVIRAX TOP SCH ×4 (00:55→16:27)
[2020-03-28] MEDS: NS 100 ML IV 100 ML with ASCORBIC ACID INJ MULTI-DOSE VIAL 1,500 MG IV SCH ×8 (02:17→21:53)
[2020-03-28] MEDS: TESSALON PERLES PO SCH ×3 (05:27→21:57)
[2020-03-28] MEDS: FORTAZ or TAZICEF VIAL INJ 1 G in NS 100 ML IV + SPIKE MINIBAG* 100 ML IV SCH ×3 (05:27→21:56)
[2020-03-28] MEDS: XANAX PO PRN ×2 (05:28→22:06)
[2020-03-28 05:43] LABS: ABG BASE EXCESS 6.3 mmol/L (-2.0-2.0)
[2020-03-28 05:44] LABS: ABG HCO3 30.6 mmol/L (22-26)
[2020-03-28 07:10] LABS: BASOPHILS % (AUTO) 0.2 % (0.2-1.0); EOSINOPHILS # (AUTO) 0.2 x10^3/uL (0.0-0.2); EOSINOPHILS % (AUTO) 1.3 % (0.9-2.9); HEMATOCRIT 41.8 % (36.0-47.0); HEMOGLOBIN 14.1 g/dL (12.0-16.0); LYMPHOCYTES # (AUTO) 0.7 X10^3/uL (1.3-2.9); LYMPHOCYTES % (AUTO) 5.5 % (21.0-51.0); MEAN CORPUSCULAR HEMOGLOBIN 29.3 pg (27.0-34.0); MEAN CORPUSCULAR HGB CONC 33.8 g/dL (33.0-35.0); MEAN CORPUSCULAR VOLUME 86.5 fL (80.0-100.0); MEAN PLATELET VOLUME 8.6 fL (7.4-11.0); MONOCYTES # (AUTO) 0.4 x10^3/uL (0.3-0.8); MONOCYTES % (AUTO) 3.2 % (0.0-13.0); NEUTROPHILS # (AUTO) 11.2 x10^3/uL (2.2-4.8); NEUTROPHILS % (AUTO) 89.8 % (42.0-75.0); PLATELET COUNT 154 X10^3/uL (150.0-450.0); RED BLOOD COUNT 4.84 X10^6/uL (3.5-5.4); RED CELL DISTRIBUTION WIDTH 14.6 % (11.6-16.5); WHITE BLOOD COUNT 12.4 X10^3/uL (3.6-10.0)
--- NOTE | 2020-03-28 07:58 | RAD ---
HISTORYshortness of breathSTUDYCHEST, 1 VIEWCOMPARISONChest film March 27, 2020.FINDINGSThe trachea is midline. The cardiac silhouette is unremarkable . The interstitial infiltrates in the mid lower lung fill are unchanged from March 27. There is mild improvement in the retrocardiac region of the left lower lobe compared to March 27. The bony thorax is unremarkable.IMPRESSIONNo change in the interstitial and hazy infiltrates in the mid lower lung fill but mild improved aeration of the left lower lobe retrocardiac consolidation compared to March 27, 2020.Electronically signed by: RAVIN KLEIN (March 28, 2020 07:57:29)
[2020-03-28 08:37] LABS: ALANINE AMINOTRANSFERASE 26 Units/L (12-78); ALBUMIN 1.9 g/dL (3.4-5.0); ALKALINE PHOSPHATASE 99 Units/L (46-116); ASPARTATE AMINO TRANSFERASE 41 Units/L (15-37); BLOOD UREA NITROGEN 9 mg/dL (7-18); CARBON DIOXIDE 30.4 mmol/L (21-32); CHLORIDE 101 mmol/L (98-107); COR CA(FOR HYPOALB) 9.7 mg/dL (8.5-10.1); CREATININE 0.58 mg/dL (0.55-1.02); SODIUM 139 mmol/L (136-145); TOTAL PROTEIN 6.7 g/dL (6.4-8.2); eGFR NON BLACK RACES > 60 (>60)
[2020-03-28] MEDS: LOVENOX INJ 40 MG SYR SC SCH (08:40)
[2020-03-28] MEDS: PAXIL PO SCH (08:40)
[2020-03-28] MEDS: NYSTATIN SUSP PO SCH ×4 (08:40→22:38)
[2020-03-28] MEDS: SYNTHROID 75 mcg TAB PO SCH (08:41)
[2020-03-28] MEDS: PLAQUENIL PO SCH ×2 (08:41→21:53)
[2020-03-28] MEDS: VITAMIN A PO SCH (08:41)
[2020-03-28] MEDS: TUSSIONEX PENNKINETIC SUSP PO SCH ×2 (08:41→21:54)
[2020-03-28] MEDS: VITAMIN D3 125 mcg (5,000 UNITS) PO SCH (08:42)
[2020-03-28] MEDS: ZITHROMAX INJ 500 MG VIAL 500 MG in NS 250 ML IV 250 ML IV SCH (08:42)
[2020-03-28] MEDS: ZINC SULFATE PO SCH ×2 (08:42→21:56)
[2020-03-28] MEDS: PROCALAMINE 3 % 1,000 ML IV SCH (08:43)
[2020-03-28] MEDS: DUONEB 0.5 MG/3 MG (3 mL) NEB SCH ×4 (09:25→21:04)
[2020-03-28] MEDS: MORPHINE SULFATE PCA 30 MG IVP PRN (13:40)
--- NOTE | 2020-03-28 16:12 | PCM.PROG ---
Progress Note - Progress Note for Day of Date of Exam: 03/28/20 - Subjective Subjective: WAS ADMITTED FOR PNEUMONIA. SHE IS COVID-19 POSITIVE. TODAY, SHE IS ALERT AND ORIENTED, LYING IN BED ON MORNING ROUNDS. SHE IS CURRENTLY UTILING THE BIPAP. SHE CONTINUES WITH COMPLAINTS OF COUGH AND SHORTNESS OF BREATH. STAFF REPORTS THAT SHE HAS LABORED BREATHING AND DESATURATES WITH THE SLIGHTEST BIT OF MOVEMENT. THEY REPORT THAT OXYGEN SATURATIONS QUICKLY FALL WHEN BIPAP MASK IS REMOVED. ON EXAMINATION, HEART IS REGULAR IN RATE AND RHYTHM. BILATERAL LUNGS ARE NOTED WITH SCATTERED WHEEZING AND RHONCHI. ABDOMEN IS ROUND, SOFT, AND NON-TENDER WITH NORMAL BOWEL SOUNDS IN ALL QUADRANTS. HER VITALS THIS MORNING ARE: 100.0-107-27-90%BIPAP-126/60. LABS WERE OBTAINED. ABNORMAL LAB VALUES INCLUDE THE FOLLOWING: WBC 12.4, CALCIUM 8.0, AST 41, CRP 302.70, ALBUMIN 1.9, GLOBULIN 4.8. AN ABG WAS REPEATED THIS MORNING AND REVEALED: PH 7.470, PC02 42.0, P02 52.0, HC03 30.6, 02 SATURATION 89.0, BASE EXCESS 6.3, FI02 60.0. BLOOD AND SPUTUM CULTURES ARE NEGATIVE. A CHEST XRAY WAS OBTAINED AND REVEALED: No change in the interstitial and hazy infiltrates in the mid lower lung fill but mild improved aeration of the left lower lobe retrocardiac consolidation compared to March 27, 2020. SHE IS CURRENTLY RECEIVING 1/2NS AT 75 ML/HR, PROCALAMINE IV AND A MORPHINE DRIP AT 1MG/HR, AZITHROMYCIN 500MG IV DAILY, FORTAZ 1G IV TID, DUONEBS, PLAQUENIL 200MG PO BID, ALBUTEROL 2 PUFFS QID, ROBITUSSIN QID, ZOFRAN 4MG IV Q6H PRN, COLACE, THE POTASSIUM AND MAGNESIUM PROTOCOLS, AND HOME MEDICATIONS WERE RESUMED. WE WILL CONTINUE WITH CURRENT PLAN OF CARE TODAY. OTHERWISE, WE PLAN TO FOLLOW UP WITH AM LABS AND CHEST XRAY AND CONTINUE TO MONITOR. - Past Medical Family Social History Past Med/Fam/Surg Hx: No changes since H&P Allergies: Allergies No Known Drug Allergies Allergy (Verified 03/15/20 22:35) - Review of Systems ROS: No change since H&P - Vital Signs and I&O's Vital Signs: Temperature 99.7 F Pulse Rate 100 Respiratory Rate 26 Blood Pressure 141/64 O2 Sat by Pulse Oximetry 89 Intake and Output: Intake & Output 03/26/20 03/27/20 03/28/20 03/29/20 11:59 11:59 11:59 11:59 Intake Total 1905 / 1905 2255 / 2255 2907 / 2907 Output Total 1900 / 1900 1850 / 1850 2150 / 2150 Balance 5 / 5 405 / 405 757 / 757 - Physical Exam Oriented: Normal Eyes: Normal Ear: Normal Nose: Normal Throat: Normal Respiratory: Generalized, Wheezes, Rhonchi Cardiovascular: Normal. negative: S3, S4, Murmur : Normal Auscultation: Bowel Sounds: Normal Tenderness: Normal Skin: Normal Musculoskeletal: Normal Psychiatric: Normal Mood Description: Calm Affect: Normal Speech Pattern: Delayed - Laboratory and Diagnostics Result Diagrams: 03/28/20 05:58 03/28/20 05:58 Labs: 03/24/20 07:30 Sputum - Expectorated Sputum Sputum Culture - Final 03/24/20 07:30 Sputum - Expectorated Sputum - Final 03/17/20 16:42 Blood Blood Culture - Final 03/17/20 16:40 Blood Blood Culture - Final Laboratory WBC 12.4 X10^3/uL (3.6-10.0) H 03/28/20 05:58 RBC 4.84 X10^6/uL (3.5-5.4) 03/28/20 05:58 Hgb 14.1 g/dL (12.0-16.0) 03/28/20 05:58 Hct 41.8 % (36.0-47.0) 03/28/20 05:58 MCV 86.5 fL (80.0-100.0) 03/28/20 05:58 MCH 29.3 pg (27.0-34.0) 03/28/20 05:58 MCHC 33.8 g/dL (33.0-35.0) 03/28/20 05:58 RDW 14.6 % (11.6-16.5) 03/28/20 05:58 Plt Count 154 X10^3/uL (150.0-450.0) 03/28/20 05:58 Plt Count Comment Adequate (ADEQUATE) 03/26/20 06:10 MPV 8.6 fL (7.4-11.0) 03/28/20 05:58 Neut % (Auto) 89.8 % (42.0-75.0) H 03/28/20 05:58 Lymph % (Auto) 5.5 % (21.0-51.0) L 03/28/20 05:58 [place] % (Auto) 3.2 % (0.0-13.0) 03/28/20 05:58 Eos % (Auto) 1.3 % (0.9-2.9) 03/28/20 05:58 Baso % (Auto) 0.2 % (0.2-1.0) 03/28/20 05:58 Neut # (Auto) 11.2 x10^3/uL (2.2-4.8) H 03/28/20 05:58 Lymph # (Auto) 0.7 X10^3/uL (1.3-2.9) L 03/28/20 05:58 [place] # (Auto) 0.4 x10^3/uL (0.3-0.8) 03/28/20 05:58 Eos # (Auto) 0.2 x10^3/uL (0.0-0.2) 03/28/20 05:58 Baso # (Auto) 0.0 X10^3/uL (0.0-0.1) 03/28/20 05:58 Absolute Nucleated RBC 0.0 /100WBC 03/28/20 05:58 Total Counted 100 03/26/20 06:10 Neutrophils % (Manual) 81 % (39-76) H 03/26/20 06:10 Band Neutrophils % 9 % (0-10) 03/26/20 06:10 Lymphocytes % (Manual) 7 % (13-43) L 03/26/20 06:10 Monocytes % (Manual) 2 % (4-9) L 03/26/20 06:10 Eosinophils % (Manual) 1 % (0-6) 03/26/20 06:10 Plt Morphology Comment Normal (NORMAL) 03/26/20 06:10 RBC Morphology Normal (NORMAL) 03/26/20 06:10 ESR 49 MM/HOUR (0-20) H 03/26/20 06:10 Sample Site Lbr 03/28/20 05:37 ABG pH 7.470 (7.35-7.45) H 03/28/20 05:37 ABG pCO2 42.0 mmHg (35.0-45.0) 03/28/20 05:37 ABG pO2 52.0 mmHg (80.0-100.0) L 03/28/20 05:37 ABG HCO3 30.6 mmol/L (22-26) H* 03/28/20 05:37 ABG O2 Saturation 89.0 % (90-100) L 03/28/20 05:37 ABG Base Excess 6.3 mmol/L (-2.0-2.0) H 03/28/20 05:37 Cabrera Test Na 03/28/20 05:37 A-a Gradient 323.0 mmHg 03/28/20 05:37 FiO2 60.0 03/28/20 05:37 Blood Gas Comments Diego well gmb 03/28/20 05:37 Sodium 139 mmol/L (136-145) 03/28/20 05:58 Corrected Sodium TNP 03/28/20 05:58 Potassium 3.9 mmol/L (3.5-5.1) 03/28/20 05:58 Chloride 101 mmol/L (98-107) 03/28/20 05:58 Carbon Dioxide 30.4 mmol/L (21-32) 03/28/20 05:58 BUN 9 mg/dL (7-18) 03/28/20 05:58 Creatinine 0.58 mg/dL (0.55-1.02) 03/28/20 05:58 Est GFR (MDRD) Af Amer > 60 (>60) 03/28/20 05:58 Est GFR (MDRD) Non-Af > 60 (>60) 03/28/20 05:58 Glucose 81 mg/dL (65-99) 03/28/20 05:58 Calcium 8.0 mg/dL (8.5-10.1) L 03/28/20 05:58 Corrected Calcium 9.7 mg/dL (8.5-10.1) 03/28/20 05:58 Magnesium 1.8 mg/dL (1.7-2.9) 03/25/20 05:36 Total Bilirubin 0.50 mg/dL (0.2-1.0) 03/28/20 05:58 AST 41 Units/L (15-37) H 03/28/20 05:58 ALT 26 Units/L (12-78) 03/28/20 05:58 Alkaline Phosphatase 99 Units/L (46-116) 03/28/20 05:58 C-Reactive Protein 302.70 mg/L (0-3.0) H 03/28/20 05:58 Total Protein 6.7 g/dL (6.4-8.2) 03/28/20 05:58 Albumin 1.9 g/dL (3.4-5.0) L 03/28/20 05:58 Globulin 4.8 g/dL (2.5-4.5) H 03/28/20 05:58 Albumin/Globulin Ratio 0.4 Ratio (1.1-2.1) L 03/28/20 05:58 Specimen Type Catherized urine 03/25/20 02:45 Urine Color Straw (YELLOW) 03/25/20 02:45 Urine Appearance Clear (CLEAR) 03/25/20 02:45 Urine pH 8.0 (5.0 - 8.0) 03/25/20 02:45 Ur Specific [place] 1.015 (1.000-1.030) 03/25/20 02:45 Urine Protein Negative (NEGATIVE) 03/25/20 02:45 Urine Glucose (UA) Negative (NEGATIVE) 03/25/20 02:45 Urine Ketones Negative (NEGATIVE) 03/25/20 02:45 Urine Occult Blood Negative (NEGATIVE) 03/25/20 02:45 Urine Nitrite Negative (NEGATIVE) 03/25/20 02:45 Urine Bilirubin Negative (NEGATIVE) 03/25/20 02:45 Urine Urobilinogen Normal (NORMAL) 03/25/20 02:45 Ur Leukocyte Esterase Negative (NEGATIVE) 03/25/20 02:45 - Plan (1) COVID-19 virus infection Status: Acute Plan: BIPAP, 1/2NS AT 75 ML/HR, AZITHROMYCIN 500MG IV DAILY, FORTAZ 1G IV TID, PLAQUENIL 200MG PO BID, DUONEBS, IS Q1H, ALBUTEROL 2 PUFFS QID, AND HOME MEDICATIONS WERE RESUMED (2) Pneumonia Status: Acute Qualifiers: Pneumonia type: due to unspecified organism Laterality: bilateral Lung location: unspecified part of lung Qualified Code(s): J18.9 - Pneumonia, unspecified organism Plan: PROCAL IV, 1/2NS AT 75 ML/HR, AZITHROMYCIN 500MG IV DAILY, FORTAZ 1G IV TID, PLAQUENIL 200MG PO BID, DUONEBS, IS Q1H, ALBUTEROL 2 PUFFS QID, AND HOME MEDICATIONS WERE RESUMED
[2020-03-28] MEDS: ESTRADIOL TOP SCH (16:27)
[2020-03-28] MEDS: COLACE CAP 100 MG PO SCH (21:53)
[2020-03-28] MEDS: D5W 1000 ML IV 1,000 ML IV SCH (22:10)
[2020-03-29] MEDS: ZOVIRAX TOP SCH ×3 (01:00→18:04)
[2020-03-29] MEDS: NS 100 ML IV 100 ML with ASCORBIC ACID INJ MULTI-DOSE VIAL 1,500 MG IV SCH ×8 (02:31→20:52)
[2020-03-29 06:24] LABS: ABG BASE EXCESS 8.4 mmol/L (-2.0-2.0)
[2020-03-29 06:25] LABS: ABG HCO3 33.4 mmol/L (22-26)
[2020-03-29 06:31] LABS: ALANINE AMINOTRANSFERASE 21 Units/L (12-78); ALBUMIN 1.8 g/dL (3.4-5.0); ALKALINE PHOSPHATASE 103 Units/L (46-116); ASPARTATE AMINO TRANSFERASE 37 Units/L (15-37); BLOOD UREA NITROGEN 8 mg/dL (7-18); CALCIUM 8.1 mg/dL (8.5-10.1); CARBON DIOXIDE 30.7 mmol/L (21-32); CHLORIDE 101 mmol/L (98-107); COR CA(FOR HYPOALB) 9.9 mg/dL (8.5-10.1); CREATININE 0.59 mg/dL (0.55-1.02); SODIUM 139 mmol/L (136-145); TOTAL PROTEIN 6.6 g/dL (6.4-8.2); eGFR NON BLACK RACES > 60 (>60)
--- NOTE | 2020-03-29 06:34 | RAD ---
HISTORYShortness of breathSTUDYCHEST, 1 [id number]/04/2020FINDINGSThe heart is within normal limits in size. Bilateral interstitial and some superimposed alveolar infiltrates are unchanged. No definite pleural effusions are identified. Bony thorax is unremarkable.IMPRESSIONNo change bilateral infiltratesElectronically signed by: ERNIE ORR (March 29, 2020 06:32:59)
[2020-03-29 06:35] LABS: BASOPHILS % (AUTO) 0.2 % (0.2-1.0); EOSINOPHILS # (AUTO) 0.1 x10^3/uL (0.0-0.2); EOSINOPHILS % (AUTO) 0.9 % (0.9-2.9); HEMOGLOBIN 13.5 g/dL (12.0-16.0); LYMPHOCYTES # (AUTO) 0.7 X10^3/uL (1.3-2.9); LYMPHOCYTES % (AUTO) 6.2 % (21.0-51.0); MEAN CORPUSCULAR HEMOGLOBIN 29.4 pg (27.0-34.0); MEAN CORPUSCULAR HGB CONC 33.7 g/dL (33.0-35.0); MEAN CORPUSCULAR VOLUME 87.1 fL (80.0-100.0); MEAN PLATELET VOLUME 8.6 fL (7.4-11.0); MONOCYTES # (AUTO) 0.3 x10^3/uL (0.3-0.8); MONOCYTES % (AUTO) 3.3 % (0.0-13.0); NEUTROPHILS # (AUTO) 9.4 x10^3/uL (2.2-4.8); NEUTROPHILS % (AUTO) 89.4 % (42.0-75.0); PLATELET COUNT 126 X10^3/uL (150.0-450.0); RED CELL DISTRIBUTION WIDTH 14.7 % (11.6-16.5); WHITE BLOOD COUNT 10.5 X10^3/uL (3.6-10.0)
[2020-03-29] MEDS: TESSALON PERLES PO SCH ×3 (06:40→23:42)
[2020-03-29] MEDS: FORTAZ or TAZICEF VIAL INJ 1 G in NS 100 ML IV + SPIKE MINIBAG* 100 ML IV SCH ×3 (06:40→23:42)
[2020-03-29] MEDS: DUONEB 0.5 MG/3 MG (3 mL) NEB SCH ×4 (07:45→21:09)
[2020-03-29] MEDS: LOVENOX INJ 40 MG SYR SC SCH (08:08)
[2020-03-29] MEDS: NYSTATIN SUSP PO SCH ×4 (08:08→20:52)
[2020-03-29] MEDS: PAXIL PO SCH (08:09)
[2020-03-29] MEDS: PLAQUENIL PO SCH ×2 (08:09→20:53)
[2020-03-29] MEDS: SYNTHROID 75 mcg TAB PO SCH (08:09)
[2020-03-29] MEDS: VITAMIN A PO SCH (08:10)
[2020-03-29] MEDS: VITAMIN D3 125 mcg (5,000 UNITS) PO SCH (08:10)
[2020-03-29] MEDS: TUSSIONEX PENNKINETIC SUSP PO SCH ×2 (08:10→20:54)
[2020-03-29] MEDS: ZINC SULFATE PO SCH ×2 (08:10→20:54)
[2020-03-29] MEDS: XANAX PO PRN (10:00)
[2020-03-29] MEDS: ZITHROMAX INJ 500 MG VIAL 500 MG in NS 250 ML IV 250 ML IV SCH (10:24)
--- NOTE | 2020-03-29 14:19 | CT ---
HISTORY:Bilateral pneumonia, respiratory distressStudy: CTA chestComparison:NoneTechnique: Multiple axial images of the chest were obtained after the administration of IV contrast. 3D reconstructions were performed utilizing radial maximum intensity projection imaging. Dose reduction techniques including Automated Exposure Control (AEC) and adjustment of mA and kV were utilized.Findings:Contrast opacification of the pulmonary arteries is adequate to the level of the segmental branches. There are filling defects noted within the right upper and middle lobar and segmental branches compatible with acute pulmonary emboli. Heart size is normal. No aortic aneurysm. There is diffuse, dense consolidation of both lungs with air bronchograms compatible with pneumonia, likely evolving into ARDS. There are trace bilateral effusions. No pneumothorax. Airways are patent. Mildly enlarged mediastinal lymph nodes are present that are likely reactive in nature for example largest prevascular node measuring 3.1 x 1 cm and largest precarinal node measuring 1.9 x 1.2 cm.The soft tissues and osseous structures appear intact . The visualized portions of the upper abdomen are grossly unremarkable.IMPRESSION:1. Acute pulmonary emboli within the right upper and right middle lobes.2. Diffuse, dense bilateral lung consolidation with air bronchograms compatible with pneumonia, likely progressing to ARDS.3. Mildly enlarged mediastinal lymph nodes that are likely reactive in nature.Electronically signed by: OG KEYES (March 29, 2020 14:17:19)
[2020-03-29] MEDS ORDERED: XYLOCAINE 1 % (PLAIN) ONE (14:55)
--- NOTE | 2020-03-29 15:54 | RAD ---
HISTORYATTEMPTED CENTRAL LINE PLACEMENT (LT)STUDYCHEST, 1 VIEWCOMPARISONPrevious chest radiograph performed earlier on the same dateFINDINGSCardiomediastinal structures are stable. Bilateral pulmonary alveolar and interstitial pulmonary infiltrates are again noted. Small effusion may be present on the right. No definite pneumothorax is identified following attempted placement of left IJ line. Bony thorax is unremarkable.IMPRESSION1. No pneumothorax is seen following attempted placement of left IJ line.2. Bilateral pulmonary infiltrates, unchanged.Electronically signed by: BLOSSOM RESTREPO (March 29, 2020 15:52:59)
[2020-03-29] MEDS ORDERED: MUCINEX DM PO SCH (16:00)
[2020-03-29] MEDS ORDERED: ROBITUSSIN DM PO PRN (16:00)
[2020-03-29] MEDS ORDERED: XANAX PO PRN (16:10)
--- NOTE | 2020-03-29 16:28 | OR.IMMED ---
Immediate Post-Op Note - Immediate Post-Op Note Pre-Op Diagnosis: bilateral pneumonia , need for venous access . Post-Op Diagnosis: same . Procedure: placement of central line Surgeon/News Library Director: Gisela Drains: NONE Complications: none Condition: Stable (to start using the line)
[2020-03-29] MEDS: HEPARIN SODIUM IN D5W 25,000 UNITS/500 ML BAG IV PRN (16:32)
[2020-03-29] MEDS: MUCOMYST 20% 200 MG/ML NEB SCH ×2 (16:50→21:09)
[2020-03-29] MEDS ORDERED: MUCOMYST (RESPIRATORY USE ONLY) NEB SCH (17:00)
[2020-03-29] MEDS: PROCALAMINE 3 % 1,000 ML IV SCH (18:11)
[2020-03-29] MEDS: MUCINEX DM PO SCH ×2 (18:20→20:51)
[2020-03-29] MEDS ORDERED: HEPARIN SODIUM INJ 5000 UNITS IVP ONE ×2 (18:42→23:38)
[2020-03-29] MEDS ORDERED: HEPARIN SODIUM INJ 5000 UNITS ONE ×2 (18:43→23:44)
[2020-03-29] MEDS: COLACE CAP 100 MG PO SCH (20:49)
[2020-03-29] MEDS: D5W 1000 ML IV 1,000 ML IV SCH (20:50)
[2020-03-29] MEDS: ROBITUSSIN DM PO SCH (20:53)
[2020-03-29] MEDS: RESTORIL CAP 15 MG PO PRN (21:00)
--- NOTE | 2020-03-29 21:48 | PCM.PROG ---
Progress Note - Progress Note for Day of Date of Exam: 03/29/20 - Subjective Subjective: WAS ADMITTED FOR PNEUMONIA. SHE IS COVID-19 POSITIVE. TODAY, SHE IS ALERT AND ORIENTED, LYING IN BED ON MORNING ROUNDS. SHE IS CURRENTLY UTILING THE BIPAP. SHE CONTINUES WITH COMPLAINTS OF COUGH AND SHORTNESS OF BREATH. SHE DENIES IMPROVEMENT IN SYMPTOMS. STAFF REPORTS THAT SHE HAS LABORED BREATHING AND DESATURATES INTO THE 60s WHEN THE BIPAP IS REMOVED. STAFF REPORTS THAT SHE SEEMS MORE ANXIOUS. HEART RATE AND RESPIRATORY RATE HAVE INCREASED. ON EXAMINATION, SHE IS NOTED TO BE TACHYCARDIC WITH HR 110-120 BPM. RESPIRATIONS ARE IN THE 40s. BILATERAL LUNGS ARE NOTED WITH SCATTERED WHEEZING AND RHONCHI. ABDOMEN IS ROUND, SOFT, AND NON-TENDER WITH NORMAL BOWEL SOUNDS IN ALL QUADRANTS. HER VITALS THIS MORNING ARE: 98.7-120-45-81%BIPAP-162/73. LABS WERE OBTAINED. ABNORMAL LAB VALUES INCLUDE THE FOLLOWING: WBC 10.5, PLT COUNT 126, PTT 41.4, D-DIMER >5000, CALCIUM 8.1, CRP 313.40, ALBUMIN 1.8. AN ABG WAS REPEATED THIS MORNING AND REVEALED: PH 7.460, PC02 47.0, P02 51.0, HC03 33.4, 02 SATURATION 88.0, BASE EXCESS 8.4, FI02 60.0. BLOOD AND SPUTUM CULTURES ARE NEGATIVE. A CHEST XRAY WAS OBTAINED AND REVEALED: change bilateral infiltrates. SHE IS CURRENTLY RECEIVING 1/2NS AT 75 ML/HR, PROCALAMINE IV AND A MORPHINE DRIP AT 1MG/HR, AZITHROMYCIN 500MG IV DAILY, FORTAZ 1G IV TID, DUONEBS, PLAQUENIL 200MG PO BID, ALBUTEROL 2 PUFFS QID, ROBITUSSIN QID, ZOFRAN 4MG IV Q6H PRN, COL [place], THE POTASSIUM AND MAGNESIUM PROTOCOLS, AND HOME MEDICATIONS WERE RESUMED. WE DISCUSSED THE NEED FOR INTUBATION WITH PATIENT AND SPOUSE DUE TO RESPIRATORY DISTRESS. PATIENT REFUSED INTUBATION AT THIS TIME AND REQUEST THAT WE ONLY INTUBATE HER IF SHE CONTINUES TO DECLINE. TODAY, WE WILL REPEAT A CHEST CT WITH CONTRAST. WE WILL RESWAB FOR COVID-19, AND CONSULT FOR A CENTRAL LINE. WE WILL ALSO START ROBITUSSIN DM 10 ML PO QID, MUCOMYST IN NEB [place], AND MUCINEX DM 2 TABS PO QID. OTHERWISE, WE PLAN TO FOLLOW UP WITH AM LABS AND CHEST XRAY AND CONTINUE TO MONITOR. - Past Medical Family Social History Past Med/Fam/Surg Hx: No changes since H&P Allergies: Allergies No Known Drug Allergies Allergy (Verified 03/15/20 22:35) - Review of Systems ROS: No change since H&P - Vital Signs and I&O's Vital Signs: Temperature 100.4 F Pulse Rate 118 Respiratory Rate 31 Blood Pressure 127/69 O2 Sat by Pulse Oximetry 90 Intake and Output: Intake & Output 03/27/20 03/28/20 03/29/20 03/30/20 11:59 11:59 11:59 11:59 Intake Total 2255 / 2255 2907 / 2907 2056 / 6 1719 / 1719 Output Total 1850 / 1850 2150 / 2150 1550 / 1550 1100 / 1100 Balance 405 / 405 757 / 757 506 / 506 619 / 619 - Physical Exam Oriented: Normal Eyes: Normal Ear: Normal Nose: Normal Throat: Normal Respiratory: Generalized, Wheezes, Rhonchi Cardiovascular: Normal. negative: S3, S4, Murmur : Normal Auscultation: Bowel Sounds: Normal Palpation: Normal Tenderness: Normal Skin: Normal Musculoskeletal: Normal Psychiatric: Normal Mood Description: Calm Affect: Normal Speech Pattern: Delayed - Laboratory and Diagnostics Result Diagrams: 03/29/20 05:51 03/29/20 05:51 Labs: 03/24/20 07:30 Sputum - Expectorated Sputum Sputum Culture - Final 03/24/20 07:30 Sputum - Expectorated Sputum - Final 03/17/20 16:42 Blood Blood Culture - Final 03/17/20 16:40 Blood Blood Culture - Final Laboratory WBC 10.5 X10^3/uL (3.6-10.0) H 03/29/20 05:51 RBC 4.60 X10^6/uL (3.5-5.4) 03/29/20 05:51 Hgb 13.5 g/dL (12.0-16.0) 03/29/20 05:51 Hct 40.0 % (36.0-47.0) 03/29/20 05:51 MCV 87.1 fL (80.0-100.0) 03/29/20 05:51 MCH 29.4 pg (27.0-34.0) 03/29/20 05:51 MCHC 33.7 g/dL (33.0-35.0) 03/29/20 05:51 RDW 14.7 % (11.6-16.5) 03/29/20 05:51 Plt Count 126 X10^3/uL (150.0-450.0) L 03/29/20 05:51 Plt Count Comment Adequate (ADEQUATE) 03/26/20 06:10 MPV 8.6 fL (7.4-11.0) 03/29/20 05:51 Neut % (Auto) 89.4 % (42.0-75.0) H 03/29/20 05:51 Lymph % (Auto) 6.2 % (21.0-51.0) L 03/29/20 05:51 [place] % (Auto) 3.3 % (0.0-13.0) 03/29/20 05:51 Eos % (Auto) 0.9 % (0.9-2.9) 03/29/20 05:51 Baso % (Auto) 0.2 % (0.2-1.0) 03/29/20 05:51 Neut # (Auto) 9.4 x10^3/uL (2.2-4.8) H 03/29/20 05:51 Lymph # (Auto) 0.7 X10^3/uL (1.3-2.9) L 03/29/20 05:51 [place] # (Auto) 0.3 x10^3/uL (0.3-0.8) 03/29/20 05:51 Eos # (Auto) 0.1 x10^3/uL (0.0-0.2) 03/29/20 05:51 Baso # (Auto) 0.0 X10^3/uL (0.0-0.1) 03/29/20 05:51 Absolute Nucleated RBC 0.0 /100WBC 03/29/20 05:51 Total Counted 100 03/26/20 06:10 Neutrophils % (Manual) 81 % (39-76) H 03/26/20 06:10 Band Neutrophils % 9 % (0-10) 03/26/20 06:10 Lymphocytes % (Manual) 7 % (13-43) L 03/26/20 06:10 Monocytes % (Manual) 2 % (4-9) L 03/26/20 06:10 Eosinophils % (Manual) 1 % (0-6) 03/26/20 06:10 Plt Morphology Comment Normal (NORMAL) 03/26/20 06:10 RBC Morphology Normal (NORMAL) 03/26/20 06:10 ESR 49 MM/HOUR (0-20) H 03/26/20 06:10 PT 14.8 SECONDS (11.8-14.3) 03/29/20 10:37 INR Target Range - 03/29/20 10:37 INR 1.20 (0.8-1.3) 03/29/20 10:37 APTT 41.4 SECONDS (22.9-36.5) H 03/29/20 10:37 PTT Comment - 03/29/20 10:37 D-Dimer > 5000 ng/mL (0-400) H* 03/29/20 10:37 Sample Site Rba 03/29/20 06:13 ABG pH 7.460 (7.35-7.45) H 03/29/20 06:13 ABG pCO2 47.0 mmHg (35.0-45.0) H 03/29/20 06:13 ABG pO2 51.0 mmHg (80.0-100.0) L 03/29/20 06:13 ABG HCO3 33.4 mmol/L (22-26) H* 03/29/20 06:13 ABG O2 Saturation 88.0 % (90-100) L 03/29/20 06:13 ABG Base Excess 8.4 mmol/L (-2.0-2.0) H 03/29/20 06:13 Cabrera Test Na 03/29/20 06:13 A-a Gradient 318.0 mmHg 03/29/20 06:13 FiO2 60.0 03/29/20 06:13 Blood Gas Comments Diego. well 03/29/20 06:13 Sodium 139 mmol/L (136-145) 03/29/20 05:51 Corrected Sodium TNP 03/29/20 05:51 Potassium 3.6 mmol/L (3.5-5.1) 03/29/20 05:51 Chloride 101 mmol/L (98-107) 03/29/20 05:51 Carbon Dioxide 30.7 mmol/L (21-32) 03/29/20 05:51 BUN 8 mg/dL (7-18) 03/29/20 05:51 Creatinine 0.59 mg/dL (0.55-1.02) 03/29/20 05:51 Est GFR (MDRD) Af Amer > 60 (>60) 03/29/20 05:51 Est GFR (MDRD) Non-Af > 60 (>60) 03/29/20 05:51 Glucose 93 mg/dL (65-99) 03/29/20 05:51 Calcium 8.1 mg/dL (8.5-10.1) L 03/29/20 05:51 Corrected Calcium 9.9 mg/dL (8.5-10.1) 03/29/20 05:51 Magnesium 1.8 mg/dL (1.7-2.9) 03/25/20 05:36 Total Bilirubin 0.60 mg/dL (0.2-1.0) 03/29/20 05:51 AST 37 Units/L (15-37) 03/29/20 05:51 ALT 21 Units/L (12-78) 03/29/20 05:51 Alkaline Phosphatase 103 Units/L (46-116) 03/29/20 05:51 C-Reactive Protein 313.40 mg/L (0-3.0) H 03/29/20 05:51 Total Protein 6.6 g/dL (6.4-8.2) 03/29/20 05:51 Albumin 1.8 g/dL (3.4-5.0) L 03/29/20 05:51 Globulin 4.8 g/dL (2.5-4.5) H 03/29/20 05:51 Albumin/Globulin Ratio 0.4 Ratio (1.1-2.1) L 03/29/20 05:51 Specimen Type Catherized urine 03/25/20 02:45 Urine Color Straw (YELLOW) 03/25/20 02:45 Urine Appearance Clear (CLEAR) 03/25/20 02:45 Urine pH 8.0 (5.0 - 8.0) 03/25/20 02:45 Ur Specific [place] 1.015 (1.000-1.030) 03/25/20 02:45 Urine Protein Negative (NEGATIVE) 03/25/20 02:45 Urine Glucose (UA) Negative (NEGATIVE) 03/25/20 02:45 Urine Ketones Negative (NEGATIVE) 03/25/20 02:45 Urine Occult Blood Negative (NEGATIVE) 03/25/20 02:45 Urine Nitrite Negative (NEGATIVE) 03/25/20 02:45 Urine Bilirubin Negative (NEGATIVE) 03/25/20 02:45 Urine Urobilinogen Normal (NORMAL) 03/25/20 02:45 Ur Leukocyte Esterase Negative (NEGATIVE) 03/25/20 02:45 - Plan (1) COVID-19 virus infection Status: Acute Plan: BIPAP, 1/2NS AT 75 ML/HR, AZITHROMYCIN 500MG IV DAILY, FORTAZ 1G IV TID, ROBITUSSIN DM 10 ML PO QID, MUCOMYST IN NEB [place], MUCINEX DM 2 TABS PO QID, PLAQUENIL 200MG PO BID, DUONEBS, IS Q1H, ALBUTEROL 2 PUFFS QID, AND HOME MEDICATIONS WERE RESUMED (2) Pneumonia Status: Acute Qualifiers: Pneumonia type: due to unspecified organism Laterality: bilateral Lung location: unspecified part of lung Qualified Code(s): J18.9 - Pneumonia, unspecified organism Plan: PROCAL IV, 1/2NS AT 75 ML/HR, AZITHROMYCIN 500MG IV DAILY, FORTAZ 1G IV TID, PLAQUENIL 200MG PO BID, DUONEBS, IS Q1H, ALBUTEROL 2 PUFFS QID, AND HOME MEDICATIONS WERE RESUMED (3) Respiratory distress Status: Acute Plan: OBTAIN CHEST CT WITH CONTRAST, CONTINUE TO MONITOR
[2020-03-29] MEDS ORDERED: ATIVAN INJ 2 MG VIAL IVP ONE (21:54)
[2020-03-29] MEDS ORDERED: ATIVAN INJ 2 MG VIAL ONE (21:58)
[2020-03-30] MEDS: MORPHINE SULFATE PCA 30 MG IVP PRN
[2020-03-30] MEDS ORDERED: ATIVAN INJ 2 MG VIAL ONE ×2 (02:56→11:51)
[2020-03-30] MEDS ORDERED: ATIVAN INJ 2 MG VIAL IVP ONE ×2 (03:03→11:50)
[2020-03-30] MEDS: ZOVIRAX TOP SCH (03:04)
[2020-03-30] MEDS: NS 100 ML IV 100 ML with ASCORBIC ACID INJ MULTI-DOSE VIAL 1,500 MG IV SCH ×2 (03:05)
[2020-03-30 05:31] LABS: ABG BASE EXCESS 7.8 mmol/L (-2.0-2.0)
[2020-03-30] MEDS: FORTAZ or TAZICEF VIAL INJ 1 G in NS 100 ML IV + SPIKE MINIBAG* 100 ML IV SCH (05:31)
[2020-03-30] MEDS: TESSALON PERLES PO SCH (05:31)
[2020-03-30 05:32] LABS: ABG HCO3 32.7 mmol/L (22-26)
[2020-03-30 05:33] LABS: ABG ALLEN TEST POS
[2020-03-30 06:24] LABS: ALANINE AMINOTRANSFERASE 20 Units/L (12-78); ALBUMIN 1.7 g/dL (3.4-5.0); ALKALINE PHOSPHATASE 118 Units/L (46-116); ASPARTATE AMINO TRANSFERASE 35 Units/L (15-37); BLOOD UREA NITROGEN 8 mg/dL (7-18); CARBON DIOXIDE 30.1 mmol/L (21-32); CHLORIDE 99 mmol/L (98-107); COR CA(FOR HYPOALB) 9.8 mg/dL (8.5-10.1); COR NA(FOR HYPERGLY) 138 mmol/L (136-145); CREATININE 0.59 mg/dL (0.55-1.02); SODIUM 138 mmol/L (136-145); TOTAL PROTEIN 6.4 g/dL (6.4-8.2); eGFR NON BLACK RACES > 60 (>60)
[2020-03-30 06:28] LABS: BASOPHILS % (AUTO) 0.2 % (0.2-1.0); EOSINOPHILS % (AUTO) 0.2 % (0.9-2.9); HEMATOCRIT 39.2 % (36.0-47.0); HEMOGLOBIN 13.2 g/dL (12.0-16.0); LYMPHOCYTES # (AUTO) 0.7 X10^3/uL (1.3-2.9); MEAN CORPUSCULAR HEMOGLOBIN 29.3 pg (27.0-34.0); MEAN CORPUSCULAR HGB CONC 33.7 g/dL (33.0-35.0); MEAN CORPUSCULAR VOLUME 86.9 fL (80.0-100.0); MEAN PLATELET VOLUME 9.1 fL (7.4-11.0); MONOCYTES # (AUTO) 0.5 x10^3/uL (0.3-0.8); MONOCYTES % (AUTO) 3.2 % (0.0-13.0); NEUTROPHILS # (AUTO) 13.4 x10^3/uL (2.2-4.8); NEUTROPHILS % (AUTO) 91.4 % (42.0-75.0); PLATELET COUNT 122 X10^3/uL (150.0-450.0); RED BLOOD COUNT 4.51 X10^6/uL (3.5-5.4); RED CELL DISTRIBUTION WIDTH 14.7 % (11.6-16.5); WHITE BLOOD COUNT 14.7 X10^3/uL (3.6-10.0)
[2020-03-30] MEDS ORDERED: HEPARIN SODIUM INJ 5000 UNITS IVP ONE (06:38)
[2020-03-30] MEDS ORDERED: HEPARIN SODIUM INJ 5000 UNITS ONE (06:42)
[2020-03-30 06:56] LABS: BAND NEUTROPHILS % 2 % (0-10); PLATELET MORPHOLOGY COMMENT NORMAL (NORMAL)
[2020-03-30] MEDS ORDERED: OFIRMEV IV 1000 MG VIAL 1,000 MG/100 ML VIAL IV PRN (08:10)
[2020-03-30] MEDS: MUCOMYST 20% 200 MG/ML NEB SCH ×2 (08:40→13:08)
[2020-03-30] MEDS: DUONEB 0.5 MG/3 MG (3 mL) NEB SCH ×2 (08:40→13:08)
[2020-03-30] MEDS: ZITHROMAX INJ 500 MG VIAL 500 MG in NS 250 ML IV 250 ML IV SCH (10:30)
[2020-03-30] MEDS ORDERED: DIPRIVAN ONE (10:46)
[2020-03-30] MEDS ORDERED: QUELICIN (OR ANECTINE) ONE (10:48)
[2020-03-30] MEDS ORDERED: DIPRIVAN VIAL 20 ML ONE (10:50)
[2020-03-30] MEDS ORDERED: DIPRIVAN VIAL IVP ONE (11:00)
[2020-03-30] MEDS ORDERED: QUELICIN (OR ANECTINE) IVP ONE (11:00)
[2020-03-30] MEDS ORDERED: DIPRIVAN PREMIX 1 GRAM IV 1,000 MG/100 ML VIAL ONE ×2 (11:13→12:08)
[2020-03-30] MEDS: DIPRIVAN PREMIX 1 GRAM IV 1,000 MG/100 ML VIAL IV PRN ×2 (11:20→12:15)
--- NOTE | 2020-03-30 11:38 | DR.CONSULT ---
Consult - Consultation for Day of: Date: 03/30/20 - Chief Complaint Chief Complaint: Consulted for intubation - Past Medical History Past Medical History: Hypothyroidism - Past Surgical History Surgical History: Hysterectomy, Tonsillectomy - Family History Family Medical History: [place] - Social History Does patient currently use any type of tobacco product: No Have you used tobacco products in the last 12 months: No Type of Tobacco Use: None Does any household member use tobacco: No Alcohol Use: None Drug Use: None - Medications Home Medications: No Known Drug Allergies Allergy (Verified 03/15/20 22:35) CONTINUE taking the following medications estradiol 1 patch TRANSDERMAL 2XW 03/17/20 [History] levothyroxine [Synthroid] 75 mcg PO DAILY 03/17/20 [History] paroxetine HCl [Paxil] 10 mg PO DAILY 03/17/20 [History] - Physical Exam Vital Signs: Temperature 101.4 F Pulse Rate 124 Respiratory Rate 33 Blood Pressure 120/58 O2 Sat by Pulse Oximetry 89 - Plan Plan: Intubated using Glidescope with #7.0OETT after giving 100mg Propofol and 100mg Anectine. Positive eleanor breath sounds and positive etco2 after intubation. Tube secured at 20 cm at lips. Patient tolerated procedure well. - Allergies Allergies/Adverse Reactions: Allergies Allergy/AdvReac Type Severity Reaction Status Date / Time No Known Drug Allergies Allergy Verified 03/15/20 22:35
--- NOTE | 2020-03-30 11:57 | RAD ---
HISTORYET TUBE PLACEMENTSTUDYCHEST, 1 VIEWCOMPARISONChest film March 29, 2020.FINDINGSThe trachea is midline. An ET tube is been placed and is in good position with the tip 5.8 cm above the [place]. The cardiac silhouette is unremarkable . The bilateral infiltrates are unchanged from yesterday's film. No effusion or pneumothorax is observed. N. The bony thorax is unremarkable.IMPRESSIONET tube in good position. Bilateral mixed interstitial alveolar infiltrates are unchanged from yesterday's film.Electronically signed by: RAVIN KLEIN (March 30, 2020 11:56:14)
[2020-03-30] MEDS: HEPARIN SODIUM IN D5W 25,000 UNITS/500 ML BAG IV PRN (12:15)
[2020-03-30] MEDS: MUCINEX DM PO SCH (12:30)
[2020-03-30] MEDS: NYSTATIN SUSP PO SCH (12:36)
[2020-03-30] MEDS: VITAMIN D3 125 mcg (5,000 UNITS) PO SCH (12:37)
[2020-03-30] MEDS: VITAMIN A PO SCH (12:39)
[2020-03-30] MEDS: PAXIL PO SCH (12:39)
[2020-03-30] MEDS: ZINC SULFATE PO SCH (12:39)
[2020-03-30] MEDS: TUSSIONEX PENNKINETIC SUSP PO SCH (12:40)
[2020-03-30] MEDS: SYNTHROID 75 mcg TAB PO SCH (12:40)
[2020-03-30] MEDS: ROBITUSSIN DM PO SCH (12:40)
[2020-03-30 12:55] VITALS: BP 85/50
== END 2020-03-30 12:15 | disposition short-term general hospital (02) | DRG 208 ==
LOC: ICU 15:30
PROVIDERS: ADMIT Internal Medicine; ATTEND Internal Medicine
DX: J80 Acute respiratory distress syndrome; I87.2 Venous insufficiency (chronic) (peripheral); J94.2 Hemothorax; U07.1 COVID-19; K59.00 Constipation, unspecified; F43.0 Acute stress reaction; J12.89 Other viral pneumonia; R51 Headache; Z86.39 Personal history of other endocrine, nutritional and metabolic disease; R00.0 Tachycardia, unspecified
CPT/HCPCS: 36415; 36556; 36600; 71010; 71045; 71275; 80053; 81003; 82728; 82803; 83615; 83735; 84132; 85025; 85378; 85610; 85652; 85730; 86140; 87040; 87070; 87205; 94002; 94640; 94660; 97110; 97163; 97167; 97530; 97535; A4222; A4618; A7030; B5200; J0131; J0330; J0456; J0713; J1644; J1650; J2060; J2270; J2271; J2405; J2704; J2920; J3411; J3475; J3490; J7050; J7060; J7620

== ENCOUNTER 2021-04-10 09:36 | Inpatient (IN) ==
[2021-04-10] MEDS ORDERED: TUSSIONEX PENNKINETIC SUSP PO PRN (12:24)
[2021-04-10] MEDS: DUONEB 0.5 MG/3 MG (3 mL) NEB SCH ×4 (12:34→20:32)
--- NOTE | 2021-04-10 13:04 | RAD ---
HISTORYcough, sob, pneumoniaSTUDYChest x-ray two viewsCOMPARISONX-ray 04/07/2021FINDINGSPatient is rotated to the right. Likely mild interstitial densities are seen in the lungs, similar to prior study. No suggestion of CHF is seen. Interstitial densities could be chronic interstitial lung disease or post infectious changes. No lobar infiltrate is seen. No pneumothorax or pleural effusion is seen.IMPRESSIONPersistent very mild interstitial densities in the lungs could be due to chronic interstitial lung disease or post infectious changes.Electronically signed by: Jonh Stallings (April 10, 2021 13:02:37)
[2021-04-10 13:31] LABS: BASOPHILS % (AUTO) 0.5 % (0.2-1.0); EOSINOPHILS # (AUTO) 0.1 x10^3/uL (0.0-0.2); EOSINOPHILS % (AUTO) 1.1 % (0.9-2.9); HEMATOCRIT 44.1 % (36.0-47.0); LYMPHOCYTES # (AUTO) 1.8 X10^3/uL (1.3-2.9); LYMPHOCYTES % (AUTO) 24.8 % (21.0-51.0); MEAN CORPUSCULAR HEMOGLOBIN 28.9 pg (27.0-34.0); MEAN CORPUSCULAR VOLUME 84.9 fL (80.0-100.0); MONOCYTES # (AUTO) 0.9 x10^3/uL (0.3-0.8); MONOCYTES % (AUTO) 12.1 % (0.0-13.0); NEUTROPHILS # (AUTO) 4.4 x10^3/uL (2.2-4.8); NEUTROPHILS % (AUTO) 61.5 % (42.0-75.0); PLATELET COUNT 181 X10^3/uL (150.0-450.0); RED CELL DISTRIBUTION WIDTH 15.1 % (11.6-16.5); WHITE BLOOD COUNT 7.2 X10^3/uL (3.6-10.0)
[2021-04-10] MEDS: VSL#3 PO SCH (13:35)
[2021-04-10 13:45] LABS: ALANINE AMINOTRANSFERASE 22 Units/L (12-78); ALBUMIN 4.1 g/dL (3.4-5.0); ALKALINE PHOSPHATASE 87 Units/L (46-116); ASPARTATE AMINO TRANSFERASE 18 Units/L (15-37); BLOOD UREA NITROGEN 8 mg/dL (7-18); CALCIUM 8.9 mg/dL (8.5-10.1); CARBON DIOXIDE 29.1 mmol/L (21-32); CHLORIDE 103 mmol/L (98-107); CREATININE 0.71 mg/dL (0.55-1.02); SODIUM 141 mmol/L (136-145); TOTAL PROTEIN 8.1 g/dL (6.4-8.2); eGFR NON BLACK RACES > 60 (>60)
[2021-04-10] MEDS: ROBITUSSIN DM PO SCH ×5 (13:45→21:45)
[2021-04-10] MEDS: NS 1/2 1000 ML IV 1,000 ML IV SCH (13:45)
[2021-04-10] MEDS: LEVAQUIN PREMIX IV 750 MG 750 MG/150 ML BAG IV SCH (13:45)
[2021-04-10] MEDS ORDERED: NS 1/2 1000 ML IV 1,000 ML IV ONE (13:57)
[2021-04-10] MEDS: ELIQUIS PO SCH ×2 (14:17→21:45)
[2021-04-10] MEDS: SOLU-Medrol 40 MG VIAL IVP SCH ×3 (14:19→21:45)
[2021-04-10] MEDS: ZOSYN VIAL 4.5 GRAMS 4.5 G in NS 100 ML IV + SPIKE MINIBAG* 100 ML IV SCH ×3 (14:19→21:45)
[2021-04-10] MEDS ORDERED: TYLENOL 325 MG TAB PO PRN (15:35)
[2021-04-10 16:06] VITALS: BMI 27.6
[2021-04-10] MEDS ORDERED: MICRO K EXTEN CAP 10 MEQ PO PRN (17:44)
[2021-04-10] MEDS ORDERED: KLOR-CON PO PRN (17:44)
[2021-04-10] MEDS ORDERED: POTASSIUM CHL 60 MEQ/NS 0.45% 500 ML IV PRN (17:44)
[2021-04-10] MEDS ORDERED: K-DUR TAB 20 MEQ PO PRN (17:44)
[2021-04-10] MEDS ORDERED: POTASSIUM CHL 40 MEQ/NS 0.45% 500 ML IV PRN (17:44)
[2021-04-10] MEDS ORDERED: POTASSIUM CHLORIDE LIQ 20 MEQ UDC PO PRN (17:44)
[2021-04-10] MEDS ORDERED: K-RIDER 10 MEQ/NS 100 ML 10 MEQ/100 ML BAG IV PRN (17:44)
[2021-04-10] MEDS: KLONOPIN TAB 0.5 MG PO SCH (21:25)
[2021-04-11] MEDS: MAGNESIUM SULFATE 1 GRAM/100 mL PREMIX 1 GM/100 ML BAG IV PRN ×2 (00:53→04:28)
--- NOTE | 2021-04-11 05:43 | RAD ---
PROCEDURE: Chest X-ray 1 View .HISTORY: Short of breath.TECHNIQUE: AP view .COMPARISON: 04/10/2021.TECHNICAL QUALITY: Satisfactory .FINDINGS:Normal size heart .Mediastinum and hilar regions show no masses or lymphadenopathy .Normal central vascularity .No pulmonary consolidation, masses, pleural fluid, or pneumothorax .No acute bony abnormality .IMPRESSION:No active cardiopulmonary disease .Electronically signed by: Dean Masterson (April 11, 2021 05:40:55)
[2021-04-11 05:59] LABS: BASOPHILS % (AUTO) 0.1 % (0.2-1.0); LYMPHOCYTES # (AUTO) 0.8 X10^3/uL (1.3-2.9); LYMPHOCYTES % (AUTO) 12.7 % (21.0-51.0); MEAN CORPUSCULAR HEMOGLOBIN 28.8 pg (27.0-34.0); MEAN CORPUSCULAR HGB CONC 34.1 g/dL (33.0-35.0); MEAN CORPUSCULAR VOLUME 84.7 fL (80.0-100.0); MEAN PLATELET VOLUME 10.1 fL (7.4-11.0); MONOCYTES # (AUTO) 0.1 x10^3/uL (0.3-0.8); MONOCYTES % (AUTO) 2.1 % (0.0-13.0); NEUTROPHILS # (AUTO) 5.3 x10^3/uL (2.2-4.8); NEUTROPHILS % (AUTO) 85.1 % (42.0-75.0); PLATELET COUNT 182 X10^3/uL (150.0-450.0); RED BLOOD COUNT 4.84 X10^6/uL (3.5-5.4); RED CELL DISTRIBUTION WIDTH 15.3 % (11.6-16.5); WHITE BLOOD COUNT 6.2 X10^3/uL (3.6-10.0)
[2021-04-11] MEDS: ZOSYN VIAL 4.5 GRAMS 4.5 G in NS 100 ML IV + SPIKE MINIBAG* 100 ML IV SCH ×3 (06:05→21:30)
[2021-04-11] MEDS: SOLU-Medrol 40 MG VIAL IVP SCH ×3 (06:10→21:30)
[2021-04-11 06:23] LABS: ALANINE AMINOTRANSFERASE 22 Units/L (12-78); ALBUMIN 3.6 g/dL (3.4-5.0); ALKALINE PHOSPHATASE 78 Units/L (46-116); ASPARTATE AMINO TRANSFERASE 16 Units/L (15-37); BLOOD UREA NITROGEN 7 mg/dL (7-18); CALCIUM 8.5 mg/dL (8.5-10.1); CARBON DIOXIDE 23.8 mmol/L (21-32); CHLORIDE 104 mmol/L (98-107); COR NA(FOR HYPERGLY) 141 mmol/L (136-145); CREATININE 0.71 mg/dL (0.55-1.02); MAGNESIUM 2.8 mg/dL (1.7-2.9); SODIUM 139 mmol/L (136-145); TOTAL PROTEIN 7.5 g/dL (6.4-8.2); eGFR NON BLACK RACES > 60 (>60)
[2021-04-11] MEDS: SYNTHROID 75 mcg TAB PO SCH (06:28)
[2021-04-11] MEDS: NS 1/2 1000 ML IV 1,000 ML IV SCH ×3 (06:29→23:07)
[2021-04-11] MEDS ORDERED: NS 1/2 1000 ML IV 1,000 ML IV ONE ×2 (06:31→22:50)
[2021-04-11] MEDS: DUONEB 0.5 MG/3 MG (3 mL) NEB SCH ×5 (07:54→20:20)
--- NOTE | 2021-04-11 08:59 | DR.H&P ---
H&P - History & Physical for Day of: H&P Date: 04/10/21 - Chief Complaint Chief Complaint: COUGH, COLD, CONGESTION, FEVER - History of Present Illness History of Present Illness: IS A 65 YEAR OLD PATIENT OF OURS. SHE PRESENTED TO THE OFFICE ABOUT A WEEK AGO WITH COMPLAINTS OF SINUS DRAINAGE, PRODUCTIVE COUGH, CONGESTION, AND FEVER. AT THAT TIME, SHE WAS GIVEN AZITHROMYCIN 500MG PO DAILY AND A MEDROL DOSEPACK. SHE REPORTS WORSENING IN SYMPTOMS DESPITE COMPLIANCE WITH MEDICATIONS. SHE RETURNED TO THE OFFICE TODAY. AUSCULTATION OF LUNG SHEPARD REVEALED SCATTERED WHEEZING. HER PMH INCLUDES BRONCHITIS, PNEUMONIA, COVID, HYPOTHYROIDISM, CHOLECYSTECTOMY, HYSTERECTOMY, TONSILLECTOMY. SHE WAS ADMITTED TO THE HOSPITAL FOR FURTHER EVALUATION AND TREATMENT OF BRONCHOPNEUMONIA. ON ARRIVAL TO THE HOSPITAL, VITALS WERE 98.8-82-18-96%-167/72. LABS WERE OBTAINED. SHE IS HEMODYNAMICALLY STABLE. BLOOD CULTURES WERE SET UP. A CHEST XRAY WAS OBTAINED AND REVEALED: Patient is rotated to the right. Likely mild interstitial densities are seen in the lungs, similar to prior study. No suggestion of CHF is seen. Interstitial densities could be chronic interstitial lung disease or post infectious changes. No lobar infiltrate is seen. No pneumothorax or pleural effusion is seen. SHE WAS STARTED ON NORMAL SALINE AT 75 ML/HR, ZOSYN 4.5G IV TID, LEVAQUIN 750MG IV DAILY, SOLU-MEDROL 80MG IV Q8H, TUSSIONEX 5ML PO Q12H PRN, ROBITUSSIN DM 10 ML PO QID, DUONEBS QID, THE POTASSIUM AND MAGNESIUM PROTOCOLS, AND HER HOME MEDICATIONS WERE RESUMED. OTHERWISE, WE PLAN TO FOLLOW UP WITH AM LABS AND CHEST XRAY AND CONTINUE TO MONITOR. TIME SPENT ON CLINICAL ASSESSMENT, REVIEWING LABS AND IMAGING, DECISION MAKING, AND DOCUMENTATION GREATER THAN 75 MINUTES. - Past Medical History Past Medical History: Hypothyroidism Additional Medical History: CHRONIC BRONCHITIS, PNEUMONIA, COVID - Past Surgical History Surgical History: Cholecystectomy, Hysterectomy - Family History Family Medical History: OR - Social History Does patient currently use any type of tobacco product: No Have you used tobacco products in the last 12 months: No Type of Tobacco Use: None Alcohol Use: None Drug Use: None - Medications Home Medications: No Known Drug Allergies Allergy (Verified 03/15/20 22:35) CONTINUE taking the following medications RX: estradiol 1 patch TOPICAL .SEMIWEEKLY 04/10/21 [History] RX: montelukast 10 mg PO DAILY 04/10/21 [History] RX: montelukast 10 mg PO DAILY 04/10/21 [History] apixaban [Eliquis] 5 mg PO BID 04/10/21 [History] - Review of Systems Constitutional: Fever, Weakness Eyes: No Symptoms Reported ENT: No Symptoms Reported Respiratory: Cough, Shortness of Breath, Sputum, Wheezing Cardiovascular: No Symptoms Reported Gastrointestinal: No Symptoms Reported Genitourinary: No Symptoms Reported Musculoskeletal: No Symptoms Reported Skin: No Symptoms Reported Neurological: Weakness - Physical Exam Vital Signs: Temperature 97.8 F Pulse Rate [Right Brachial] 86 Pulse Rate 89 Respiratory Rate 18 Blood Pressure [Right Arm] 135/60 Blood Pressure 85/50 O2 Sat by Pulse Oximetry 94 Oriented: Normal Eyes: Normal Ear: Normal Nose: Normal Throat: Normal Respiratory: Wheezes Throughout Cardiovascular: Normal : Normal Auscultation: Bowel Sounds: Normal Palpation: Normal Tenderness: Normal Skin: Normal Musculoskeletal: Normal Psychiatric: Normal Mood Description: Calm Affect: Normal Speech Pattern: Clear - Assessment/Plan (1) Bronchopneumonia Status: Acute Plan: ADMIT, SUPPLEMENTAL OXYGEN, NORMAL SALINE AT 75 ML/HR, ZOSYN 4.5G IV TID, LEVAQUIN 750MG IV DAILY, SOLU-MEDROL 80MG IV Q8H, TUSSIONEX 5ML PO Q12H PRN, ROBITUSSIN DM 10 ML PO QID, DUONEBS QID, THE POTASSIUM AND MAGNESIUM PROTOCOLS, AND HER HOME MEDICATIONS WERE RESUMED. - Allergies Allergies/Adverse Reactions: Allergies Allergy/AdvReac Type Severity Reaction Status Date / Time No Known Drug Allergies Allergy Verified 03/15/20 22:35
[2021-04-11] MEDS: ROBITUSSIN DM PO SCH ×4 (09:23→20:51)
[2021-04-11] MEDS: VSL#3 PO SCH (09:23)
[2021-04-11] MEDS: ELIQUIS PO SCH ×2 (09:24→21:20)
[2021-04-11] MEDS: LEVAQUIN PREMIX IV 750 MG 750 MG/150 ML BAG IV SCH (09:24)
[2021-04-11] MEDS ORDERED: ESTRADIOL 0.1 MG/24 HR TOP SCH (10:15)
--- NOTE | 2021-04-11 10:34 | PCM.PROG ---
Progress Note - Progress Note for Day of Date of Exam: 04/11/21 - Subjective Subjective: IS BEING TREATED FOR BRONCHOPNEUMONIA. TODAY, SHE IS ALERT AND ORIENTED, LYING IN BED ON MORNING ROUNDS. SHE CONTINUES WITH COMPLAINTS OF COUGH AND SHORTNESS OF BREATH TODAY. ON EXAMINATION, HEART IS REGULAR IN RATE AND RHYTHM. BILATERAL LUNGS CONTINUE WITH SCATTERED WHEEZING THROUGHOUT. ABDOMEN IS ROUND, SOFT, AND NON-TENDER WITH NORMAL BOWEL SOUNDS NOTED IN ALL QUADRANTS. HER VITALS THIS MORNING ARE: 97.8-89-18-94%RA-135/60. LABS WERE OBTAINED. GLUCOSE IS ELEVATED AT 185, OTHERWISE, SHE IS HEMODYNAMICALLY STABLE. BLOOD CULTURES ARE PENDING. A CHEST XRAY WAS OBTAINED AND REVEALED: NO ACTIVE CARDIOPULMONARY DISEASE. SHE IS CURRENTLY RECEIVING NORMAL SALINE AT 75 ML/HR, ZOSYN 4.5G IV TID, LEVAQUIN 750MG IV DAILY, SOLU-MEDROL 80MG IV Q8H, TUSSIONEX 5ML PO Q12H PRN, ROBITUSSIN DM 10 ML PO QID, DUONEBS QID, THE POTASSIUM AND MAGNESIUM PROTOCOLS, AND HER HOME MEDICATIONS WERE RESUMED. TODAY, WE WILL ADD FOLNASE 2 SPRAYS DAILY, RAFI DAILY, AND SINGULAIR AT BEDTIME. OTHERWISE, WE PLAN TO FOLLOW UP WITH AM LABS AND CHEST XRAY AND CONTINUE TO MONITOR. TIME SPENT ON CLINICAL ASSESSMENT, REVIEWING LABS AND IMAGING, DECISION MAKING, AND DOCUMENTATION GREATER THAN 45 MINUTES. - Past Medical Family Social History Past Med/Fam/Surg Hx: No changes since H&P Allergies: Allergies No Known Drug Allergies Allergy (Verified 03/15/20 22:35) - Review of Systems ROS: No change since H&P - Vital Signs and I&O's Vital Signs: Temperature 97.8 F Pulse Rate [Right Brachial] 86 Pulse Rate 89 Respiratory Rate 18 Blood Pressure [Right Arm] 135/60 Blood Pressure 85/50 O2 Sat by Pulse Oximetry 94 Intake and Output: Intake & Output 04/08/21 04/09/21 04/10/21 04/11/21 11:59 11:59 11:59 11:59 Intake Total 2998 / 2998 Balance 2998 / 2998 - Physical Exam Oriented: Normal Eyes: Normal Ear: Normal Nose: Normal Throat: Normal Cardiovascular: Normal : Normal Auscultation: Bowel Sounds: Normal Palpation: Normal Tenderness: Normal Skin: Normal Musculoskeletal: Normal Psychiatric: Normal Mood Description: Calm Affect: Normal Speech Pattern: Clear - Laboratory and Diagnostics Result Diagrams: 04/11/21 05:23 04/11/21 05:23 Labs: Laboratory WBC 6.2 X10^3/uL (3.6-10.0) 04/11/21 05:23 RBC 4.84 X10^6/uL (3.5-5.4) 04/11/21 05:23 Hgb 14.0 g/dL (12.0-16.0) 04/11/21 05:23 Hct 41.0 % (36.0-47.0) 04/11/21 05:23 MCV 84.7 fL (80.0-100.0) 04/11/21 05:23 MCH 28.8 pg (27.0-34.0) 04/11/21 05:23 MCHC 34.1 g/dL (33.0-35.0) 04/11/21 05:23 RDW 15.3 % (11.6-16.5) 04/11/21 05:23 Plt Count 182 X10^3/uL (150.0-450.0) 04/11/21 05:23 MPV 10.1 fL (7.4-11.0) 04/11/21 05:23 Neut % (Auto) 85.1 % (42.0-75.0) H 04/11/21 05:23 Lymph % (Auto) 12.7 % (21.0-51.0) L 04/11/21 05:23 [place] % (Auto) 2.1 % (0.0-13.0) 04/11/21 05:23 Eos % (Auto) 0.0 % (0.9-2.9) L 04/11/21 05:23 Baso % (Auto) 0.1 % (0.2-1.0) L 04/11/21 05:23 Neut # (Auto) 5.3 x10^3/uL (2.2-4.8) H 04/11/21 05:23 Lymph # (Auto) 0.8 X10^3/uL (1.3-2.9) L 04/11/21 05:23 [place] # (Auto) 0.1 x10^3/uL (0.3-0.8) L 04/11/21 05:23 Eos # (Auto) 0.0 x10^3/uL (0.0-0.2) 04/11/21 05:23 Baso # (Auto) 0.0 X10^3/uL (0.0-0.1) 04/11/21 05:23 Absolute Nucleated RBC 0.1 /100WBC 04/11/21 05:23 Sodium 139 mmol/L (136-145) 04/11/21 05:23 Corrected Sodium 141 mmol/L (136-145) 04/11/21 05:23 Potassium 4.2 mmol/L (3.5-5.1) 04/11/21 05:23 Chloride 104 mmol/L (98-107) 04/11/21 05:23 Carbon Dioxide 23.8 mmol/L (21-32) 04/11/21 05:23 BUN 7 mg/dL (7-18) 04/11/21 05:23 Creatinine 0.71 mg/dL (0.55-1.02) 04/11/21 05:23 Est GFR (MDRD) Af Amer > 60 (>60) 04/11/21 05:23 Est GFR (MDRD) Non-Af > 60 (>60) 04/11/21 05:23 Glucose 185 mg/dL (65-99) H 04/11/21 05:23 Calcium 8.5 mg/dL (8.5-10.1) 04/11/21 05:23 Corrected Calcium TNP 04/11/21 05:23 Magnesium 2.8 mg/dL (1.7-2.9) 04/11/21 05:23 Total Bilirubin 0.20 mg/dL (0.2-1.0) 04/11/21 05:23 AST 16 Units/L (15-37) 04/11/21 05:23 ALT 22 Units/L (12-78) 04/11/21 05:23 Alkaline Phosphatase 78 Units/L (46-116) 04/11/21 05:23 Total Protein 7.5 g/dL (6.4-8.2) 04/11/21 05:23 Albumin 3.6 g/dL (3.4-5.0) 04/11/21 05:23 Globulin 3.9 g/dL (2.5-4.5) 04/11/21 05:23 Albumin/Globulin Ratio 0.9 Ratio (1.1-2.1) L 04/11/21 05:23 - Plan (1) Bronchopneumonia Status: Acute Plan: SUPPLEMENTAL OXYGEN, NORMAL SALINE AT 75 ML/HR, ZOSYN 4.5G IV TID, LEVAQUIN 750MG IV DAILY, SOLU-MEDROL 80MG IV Q8H, TUSSIONEX 5ML PO Q12H PRN, ROBITUSSIN DM 10 ML PO QID, DUONEBS QID, THE POTASSIUM AND MAGNESIUM PROTOCOLS, FOLNASE 2 SPRAYS DAILY, RAFI DAILY, SINGULAIR AT BEDTIME, AND HER HOME MEDICATIONS WERE RESUMED.
[2021-04-11] MEDS: PAXIL PO SCH (12:30)
[2021-04-11] MEDS ORDERED: ALLEGRA ONE ×2 (15:09→16:34)
[2021-04-11] MEDS ORDERED: FLONASE NASAL SPRAY ENOSTRIL ONE (15:10)
[2021-04-11] MEDS: FLONASE NASAL SPRAY ENOSTRIL SCH (15:12)
[2021-04-11] MEDS: ALLEGRA PO SCH (15:12)
[2021-04-11] MEDS: KLONOPIN TAB 0.5 MG PO SCH (20:48)
[2021-04-11] MEDS ORDERED: SINGULAIR TAB 10 MG PO SCH (21:00)
--- NOTE | 2021-04-12 04:18 | RAD ---
PROCEDURE: Chest X-ray 1 View .HISTORY: Short of breath.TECHNIQUE: AP view .COMPARISON: 04/11/2021.TECHNICAL QUALITY: Satisfactory .FINDINGS:Normal size heart .Mediastinum and hilar regions show no masses or lymphadenopathy .Normal central vascularity .No pulmonary consolidation, masses, pleural fluid, or pneumothorax .No acute bony abnormality .IMPRESSION:No active cardiopulmonary disease .Electronically signed by: Dean Masterson (April 12, 2021 04:16:36)
[2021-04-12 04:25] LABS: BASOPHILS % (AUTO) 0.1 % (0.2-1.0); HEMATOCRIT 40.2 % (36.0-47.0); HEMOGLOBIN 13.6 g/dL (12.0-16.0); LYMPHOCYTES # (AUTO) 1.2 X10^3/uL (1.3-2.9); LYMPHOCYTES % (AUTO) 10.1 % (21.0-51.0); MEAN CORPUSCULAR HEMOGLOBIN 28.6 pg (27.0-34.0); MEAN CORPUSCULAR HGB CONC 33.8 g/dL (33.0-35.0); MEAN CORPUSCULAR VOLUME 84.4 fL (80.0-100.0); MEAN PLATELET VOLUME 9.9 fL (7.4-11.0); MONOCYTES # (AUTO) 0.4 x10^3/uL (0.3-0.8); MONOCYTES % (AUTO) 3.8 % (0.0-13.0); NEUTROPHILS # (AUTO) 10.2 x10^3/uL (2.2-4.8); PLATELET COUNT 201 X10^3/uL (150.0-450.0); RED BLOOD COUNT 4.77 X10^6/uL (3.5-5.4); RED CELL DISTRIBUTION WIDTH 15.3 % (11.6-16.5); WHITE BLOOD COUNT 11.8 X10^3/uL (3.6-10.0)
[2021-04-12 04:43] LABS: ALANINE AMINOTRANSFERASE 18 Units/L (12-78); ALBUMIN 3.1 g/dL (3.4-5.0); ALKALINE PHOSPHATASE 70 Units/L (46-116); ASPARTATE AMINO TRANSFERASE 13 Units/L (15-37); BLOOD UREA NITROGEN 9 mg/dL (7-18); CALCIUM 8.1 mg/dL (8.5-10.1); CARBON DIOXIDE 27.8 mmol/L (21-32); CHLORIDE 109 mmol/L (98-107); COR CA(FOR HYPOALB) 8.8 mg/dL (8.5-10.1); COR NA(FOR HYPERGLY) 146 mmol/L (136-145); SODIUM 144 mmol/L (136-145); TOTAL PROTEIN 6.7 g/dL (6.4-8.2); eGFR NON BLACK RACES > 60 (>60)
[2021-04-12] MEDS: SYNTHROID 75 mcg TAB PO SCH (06:09)
[2021-04-12] MEDS: SOLU-Medrol 40 MG VIAL IVP SCH (06:09)
[2021-04-12] MEDS: ZOSYN VIAL 4.5 GRAMS 4.5 G in NS 100 ML IV + SPIKE MINIBAG* 100 ML IV SCH (06:09)
[2021-04-12] MEDS ORDERED: ALLEGRA ONE (07:40)
[2021-04-12] MEDS: DUONEB 0.5 MG/3 MG (3 mL) NEB SCH (08:05)
[2021-04-12] MEDS: NS 1/2 1000 ML IV 1,000 ML IV SCH (09:15)
[2021-04-12] MEDS: ALLEGRA PO SCH (09:16)
[2021-04-12] MEDS: FLONASE NASAL SPRAY ENOSTRIL SCH (09:16)
[2021-04-12] MEDS: ELIQUIS PO SCH (09:16)
[2021-04-12] MEDS: PAXIL PO SCH (09:17)
[2021-04-12] MEDS: VSL#3 PO SCH (09:17)
[2021-04-12] MEDS: LEVAQUIN PREMIX IV 750 MG 750 MG/150 ML BAG IV SCH (09:17)
[2021-04-12] MEDS: ROBITUSSIN DM PO SCH (09:17)
[2021-04-12 10:07] VITALS: BP 145/68
== END 2021-04-12 12:00 | disposition home or self-care (01) | DRG 195 ==
LOC: MED/SURG 11:24
PROVIDERS: ADMIT Internal Medicine; ATTEND Internal Medicine
DX: J18.8 Other pneumonia, unspecified organism; E03.8 Other specified hypothyroidism; R06.02 Shortness of breath; Z86.16 Personal history of COVID-19; R51.9 Headache, unspecified

== ENCOUNTER 2025-02-24 14:05 | Observation (INO) ==
[2025-02-24] MEDS: NS 1,000 ML IV 1,000 ML IV ONE (14:22)
[2025-02-24] MEDS: ZOFRAN INJ 4 MG VIAL IVP ONE (14:22)
[2025-02-24] MEDS: TORADOL 30 MG VIAL IVP ONE (14:24)
[2025-02-24 14:34] LABS: BASOPHILS # (AUTO) 0.1 X10^3/uL (0.0-0.1); BASOPHILS % (AUTO) 0.8 % (0.2-1.0); EOSINOPHILS # (AUTO) 0.1 x10^3/uL (0.0-0.2); HEMATOCRIT 43.2 % (36.0-47.0); HEMOGLOBIN 14.4 g/dL (12.0-16.0); LYMPHOCYTES # (AUTO) 2.6 X10^3/uL (1.3-2.9); LYMPHOCYTES % (AUTO) 21.1 % (21.0-51.0); MEAN CORPUSCULAR HEMOGLOBIN 29.2 pg (27.0-34.0); MEAN CORPUSCULAR HGB CONC 33.4 g/dL (33.0-35.0); MEAN CORPUSCULAR VOLUME 87.4 fL (80.0-100.0); MEAN PLATELET VOLUME 10.1 fL (7.4-11.0); MONOCYTES # (AUTO) 0.7 x10^3/uL (0.3-0.8); NEUTROPHILS # (AUTO) 8.7 x10^3/uL (2.2-4.8); NEUTROPHILS % (AUTO) 71.1 % (42.0-75.0); PLATELET COUNT 172 X10^3/uL (150.0-450.0); RED BLOOD COUNT 4.95 X10^6/uL (3.5-5.4); RED CELL DISTRIBUTION WIDTH 14.2 % (11.6-16.5); WHITE BLOOD COUNT 12.3 X10^3/uL (3.6-10.0)
--- NOTE | 2025-02-24 14:36 | ED.ABDFE ---
HPI Time Seen Time Seen by Provider: 02/24/25 14:36 PCP Primary Care Physician: MAURICE Alvarado Complaint Chief Complaint:: Pt states that two hours ago she had a sudden onset of gross hematuria with constant severe aching pain with intermittent spasms in the suprapubic area that radiates across the lower abdomen. COVID-19 Coronavirus risk:travel/contact w/high risk person: No Has patient experienced Coronavirus symptoms: No Source History Provided: Patient Mode of arrival Mode of Arrival: Ambulatory Timing Onset of Chief Complaint: 02/24/25 PMH PMH Past Medical History: Yes Past Medical History: Coronary Artery Disease, Dyslipidemia, Kidney Stones and GA Past Surgical History: Yes Surgical History: Angioplasty/Stents, Cholecystectomy, Hysterectomy and Tonsillectomy Past Surgical History Comment: tracheostomy Family History History of Family Medical Conditions: Yes Family Medical History: Diabetes Mellitus, GA and Coronary Artery Disease Social History Does patient currently use any type of tobacco product: No Have you used tobacco products in the last 12 months: No Type of Tobacco Use: None Does any household member use tobacco: No Alcohol Use: None Do you use any recreational Drugs:: No Lives With: Family Lives Where: Home Travel Risk Coronavirus risk:travel/contact w/high risk person: No Has patient experienced Coronavirus symptoms: No Infectious screening In the last 2 months have you had wt loss of >10#?: NO Have you had fever, night sweats or hemotysis?: No Have you traveled outside the country in the last 6 months?: No Isolation: Standard PE Vital Signs Vitals: Vital Signs Temperature 98.0 F Pulse Rate 75 Respiratory Rate 16 Respiratory Rate 18 Respiratory Rate 20 Blood Pressure 141/75 O2 Sat by Pulse Oximetry 90 ROR Labs Reviewed 02/24/25 14:23 02/24/25 14:23 Laboratory: WBC 12.3 X10^3/uL (3.6-10.0) H 02/24/25 14:23 RBC 4.95 X10^6/uL (3.5-5.4) 02/24/25 14:23 Hgb 14.4 g/dL (12.0-16.0) 02/24/25 14:23 Hct 43.2 % (36.0-47.0) 02/24/25 14:23 MCV 87.4 fL (80.0-100.0) 02/24/25 14:23 MCH 29.2 pg (27.0-34.0) 02/24/25 14:23 MCHC 33.4 g/dL (33.0-35.0) 02/24/25 14:23 RDW 14.2 % (11.6-16.5) 02/24/25 14:23 Plt Count 172 X10^3/uL (150.0-450.0) 02/24/25 14:23 MPV 10.1 fL (7.4-11.0) 02/24/25 14:23 Neut % (Auto) 71.1 % (42.0-75.0) 02/24/25 14:23 Lymph % (Auto) 21.1 % (21.0-51.0) 02/24/25 14:23 [place] % (Auto) 6.0 % (0.0-13.0) 02/24/25 14:23 Eos % (Auto) 1.0 % (0.9-2.9) 02/24/25 14:23 Baso % (Auto) 0.8 % (0.2-1.0) 02/24/25 14:23 Neut # (Auto) 8.7 x10^3/uL (2.2-4.8) H 02/24/25 14:23 Lymph # (Auto) 2.6 X10^3/uL (1.3-2.9) 02/24/25 14:23 [place] # (Auto) 0.7 x10^3/uL (0.3-0.8) 02/24/25 14:23 Eos # (Auto) 0.1 x10^3/uL (0.0-0.2) 02/24/25 14:23 Baso # (Auto) 0.1 X10^3/uL (0.0-0.1) 02/24/25 14:23 Absolute Nucleated RBC 0.1 /100WBC 02/24/25 14:23 Sodium 139 mmol/L (136-145) 02/24/25 14:23 Corrected Sodium TNP 02/24/25 14:23 Potassium 3.8 mmol/L (3.5-5.1) 02/24/25 14:23 Chloride 104 mmol/L (98-107) 02/24/25 14:23 Carbon Dioxide 27.9 mmol/L (21-32) 02/24/25 14:23 BUN 5 mg/dL (7-18) L 02/24/25 14:23 Creatinine 0.74 mg/dL (0.55-1.02) 02/24/25 14:23 Est GFR (MDRD) Af Amer > 60 (>60) 02/24/25 14:23 Est GFR (MDRD) Non-Af > 60 (>60) 02/24/25 14:23 Glucose 96 mg/dL (65-99) 02/24/25 14:23 Calcium 9.1 mg/dL (8.5-10.1) 02/24/25 14:23 Corrected Calcium TNP 02/24/25 14:23 Total Bilirubin 0.40 mg/dL (0.2-1.0) 02/24/25 14:23 AST 19 Units/L (15-37) 02/24/25 14:23 ALT 26 Units/L (12-78) 02/24/25 14:23 Alkaline Phosphatase 97 Units/L (46-116) 02/24/25 14:23 Total Protein 7.5 g/dL (6.4-8.2) 02/24/25 14:23 Albumin 4.1 g/dL (3.4-5.0) 02/24/25 14:23 Globulin 3.4 g/dL (2.5-4.5) 02/24/25 14:23 Albumin/Globulin Ratio 1.2 Ratio (1.1-2.1) 02/24/25 14:23 Specimen Type Clean catch urine 02/24/25 14:20 Urine Color Red (YELLOW) 02/24/25 14:20 Urine Appearance Cloudy (CLEAR) 02/24/25 14:20 Urine pH 7.0 (5.0 - 8.0) 02/24/25 14:20 Ur Specific [place] 1.010 (1.000-1.030) 02/24/25 14:20 Urine Protein 4+ (NEGATIVE) 02/24/25 14:20 Urine Glucose (UA) Negative (NEGATIVE) 02/24/25 14:20 Urine Ketones Negative (NEGATIVE) 02/24/25 14:20 Urine Blood 5+ (NEGATIVE) 02/24/25 14:20 Urine Nitrite Negative (NEGATIVE) 02/24/25 14:20 Urine Bilirubin Negative (NEGATIVE) 02/24/25 14:20 Urine Urobilinogen Normal (NORMAL) 02/24/25 14:20 Ur Leukocyte Esterase 3+ (NEGATIVE) 02/24/25 14:20 Urine RBC Tntc /HPF (0-3) A 02/24/25 14:20 Urine WBC Tntc /HPF (0-5) A 02/24/25 14:20 Ur Squamous Epith Cells Few /HPF (NEGATIVE) 02/24/25 14:20 Urine Bacteria 2+ /HPF (NEGATIVE) 02/24/25 14:20 Ur Culture Indicated? Yes/culture set up 02/24/25 14:20 Opioid Opioid Risk Tool Age (John box if 16-45): No History of Preadolescent Sexual Abuse: No Total: 0 Total Score Risk Category: Low Risk Copyright: [employer] TONE[employer] predicting aberrant behaviors Discharge Plan Diagnosis Discharge Problem: UTI (urinary tract infection), Pelvic pain, Rectal abscess, Hematuria Discharge Plan Patient Disposition: 09 ADMITTED INPATIENT Condition: Stable
[2025-02-24 14:46] LABS: BILIRUBIN,URINE NEGATIVE (NEGATIVE); BLOOD/HEMOGLOBIN,URINE 5+ (NEGATIVE); GLUCOSE, URINE NEGATIVE (NEGATIVE); KETONES,URINE NEGATIVE (NEGATIVE); LEUKOCYTE ESTERASE ,URINE 3+ (NEGATIVE); NITRITES,URINE NEGATIVE (NEGATIVE); PROTEIN,URINE 4+ (NEGATIVE); UROBILINOGEN,URINE NORMAL (NORMAL)
[2025-02-24 14:52] LABS: ALANINE AMINOTRANSFERASE 26 Units/L (12-78); ALBUMIN 4.1 g/dL (3.4-5.0); ALKALINE PHOSPHATASE 97 Units/L (46-116); ASPARTATE AMINO TRANSFERASE 19 Units/L (15-37); BLOOD UREA NITROGEN 5 mg/dL (7-18); CALCIUM 9.1 mg/dL (8.5-10.1); CARBON DIOXIDE 27.9 mmol/L (21-32); CHLORIDE 104 mmol/L (98-107); CREATININE 0.74 mg/dL (0.55-1.02); GLUCOSE 96 mg/dL (65-99); POTASSIUM 3.8 mmol/L (3.5-5.1); SODIUM 139 mmol/L (136-145); TOTAL PROTEIN 7.5 g/dL (6.4-8.2); eGFR NON BLACK RACES > 60 (>60)
[2025-02-24 14:55] LABS: APPEARANCE,URINE CLOUDY (CLEAR); BACTERIA,URINE 2+ /HPF (NEGATIVE); COLOR,URINE RED (YELLOW); RBC,URINE TNTC /HPF (0-3); SQUAMOUS EPITHELIAL CELL,UR FEW /HPF (NEGATIVE)
--- NOTE | 2025-02-24 15:29 | CT ---
EXAMINATION:ABDOMEN/PELVIS W/O CONHISTORY:suprapubic pain, hematuria; . rCOMPARISON:CT abdomen and pelvis 04/17/2024TECHNIQUE:Unenhanced axial images were obtained through the abdomen and pelvis using renal stone protocol. Reformatted images were obtained as well. Lack of oral and IV contrast limits diagnostic sensitivityThe above CT scan was done with automated exposure control and the mA and kV was adjusted to obtain quality images according to patient size.FINDINGS:Lung bases: No acute findings. Hiatal hernia.Liver: No acute findings or focal lesions.GB/Biliary: Cholecystectomy. No dilated ductSpleen: Normal size and densityPancreas: No acute findings. No pseudocyst or dilated ductAdrenal Glands: No massKidneys: No obstructing stone, hydronephrosis or solid lesion. Punctate nonobstructing stones in the left kidney.Abdominal aorta: Tapers normallyRetroperitoneum: No pathologic lymphadenopathyBowel: No thickened or dilated loops of bowel, free fluid, free air or pneumatosis. There is a fluid collection anterior to the rectum posterior to the bladder. This contains a bubble of gas. This is directly contiguous with the bladder. Question whether this represents fistula between the bladder and vagina. Alternatively this could represent seroma hematoma or less likely abscess. No CT evidence for obstruction, diverticulitis or appendicitis..Bladder/: Ureters unremarkable. Bladder wall thickening may represent cystitis. Correlate with urinalysis. Hysterectomy. No pelvic or adnexal massOsseous: Multilevel degenerative changes. No acute findings or bony lesions.IMPRESSION:Nonobstructing stones left kidney. No CT evidence for obstructing stone.Bladder wall thickening which may represent cystitis.Fluid structure posterior to the bladder and anterior to the rectum containing fluid and gas. Question fistula between the vagina and the bladder. Differential diagnosis would include seroma abscess. Correlate clinically. Lack of contrast limits evaluation.No CT evidence for obstruction, diverticulitis or appendicitis.THIS IS AN ELECTRONICALLY VERIFIED FINAL REPORT02/24/2025 3:25 PM - Electronically signed by Jonh Traylor MD
[2025-02-24] MEDS: ROCEPHIN VIAL 1 GRAM IV ONE (16:12)
[2025-02-24] MEDS: ROCEPHIN VIAL 1 GRAM 1 G in NS 100 ML IV 100 ML IV SCH (16:49)
[2025-02-24 17:54] VITALS: BMI 29.0
[2025-02-24] MEDS: ZOSYN VIAL 3.375 GRAMS 3.375 G in NS 100 ML IV 100 ML IV SCH (18:12)
[2025-02-24] MEDS: NS 250 ML IV 25 ML IV PRN (18:12)
[2025-02-24] MEDS: ROCEPHIN VIAL 1 GRAM ONE (18:37)
[2025-02-24] MEDS: ZOFRAN INJ 4 MG VIAL IVP PRN (21:21)
[2025-02-24] MEDS: MORPHINE SULFATE INJ 2 MG INJ IVP PRN (21:22)
[2025-02-25 05:03] LABS: EOSINOPHILS # (AUTO) 0.1 x10^3/uL (0.0-0.2); MEAN CORPUSCULAR HEMOGLOBIN 29.2 pg (27.0-34.0); MEAN CORPUSCULAR VOLUME 87.5 fL (80.0-100.0); MONOCYTES # (AUTO) 0.7 x10^3/uL (0.3-0.8)
[2025-02-25 05:10] LABS: BASOPHILS % (AUTO) 0.4 % (0.2-1.0); EOSINOPHILS % (AUTO) 0.8 % (0.9-2.9); HEMATOCRIT 38.5 % (36.0-47.0); HEMOGLOBIN 12.8 g/dL (12.0-16.0); LYMPHOCYTES # (AUTO) 2.5 X10^3/uL (1.3-2.9); LYMPHOCYTES % (AUTO) 24.7 % (21.0-51.0); MEAN CORPUSCULAR HGB CONC 33.4 g/dL (33.0-35.0); MEAN PLATELET VOLUME 11.1 fL (7.4-11.0); MONOCYTES % (AUTO) 7.2 % (0.0-13.0); NEUTROPHILS # (AUTO) 6.8 x10^3/uL (2.2-4.8); NEUTROPHILS % (AUTO) 66.9 % (42.0-75.0); PLATELET COUNT 149 X10^3/uL (150.0-450.0); RED CELL DISTRIBUTION WIDTH 14.7 % (11.6-16.5); WHITE BLOOD COUNT 10.2 X10^3/uL (3.6-10.0)
[2025-02-25 05:18] LABS: ALANINE AMINOTRANSFERASE 65 Units/L (12-78); ALBUMIN 3.3 g/dL (3.4-5.0); ALKALINE PHOSPHATASE 92 Units/L (46-116); ASPARTATE AMINO TRANSFERASE 57 Units/L (15-37); BLOOD UREA NITROGEN 6 mg/dL (7-18); CALCIUM 8.6 mg/dL (8.5-10.1); CARBON DIOXIDE 29.9 mmol/L (21-32); CHLORIDE 107 mmol/L (98-107); COR CA(FOR HYPOALB) 9.2 mg/dL (8.5-10.1); CREATININE 0.74 mg/dL (0.55-1.02); GLUCOSE 99 mg/dL (65-99); MAGNESIUM 1.9 mg/dL (2.0-2.9); SODIUM 146 mmol/L (136-145); TOTAL PROTEIN 6.2 g/dL (6.4-8.2); eGFR NON BLACK RACES > 60 (>60)
[2025-02-25] MEDS: LIPITOR TAB 40 MG PO SCH (09:58)
[2025-02-25] MEDS: SYNTHROID 75 mcg TAB PO SCH (09:59)
[2025-02-25] MEDS: KLONOPIN TAB 0.5 MG PO SCH (09:59)
[2025-02-25] MEDS: LOPRESSOR TAB 25 MG PO SCH (10:02)
[2025-02-25] MEDS: SUPREP BOWEL PREP KIT PO SCH (16:50)
[2025-02-25] MEDS: TYLENOL 325 MG TAB PO PRN (21:12)
[2025-02-26] MEDS: HIBICLENS WASH EXT ONE (03:33)
[2025-02-26 05:43] LABS: BASOPHILS % (AUTO) 0.5 % (0.2-1.0); EOSINOPHILS # (AUTO) 0.1 x10^3/uL (0.0-0.2); EOSINOPHILS % (AUTO) 1.7 % (0.9-2.9); HEMATOCRIT 42.1 % (36.0-47.0); LYMPHOCYTES # (AUTO) 2.3 X10^3/uL (1.3-2.9); LYMPHOCYTES % (AUTO) 36.3 % (21.0-51.0); MEAN CORPUSCULAR HEMOGLOBIN 29.2 pg (27.0-34.0); MEAN CORPUSCULAR HGB CONC 33.3 g/dL (33.0-35.0); MEAN CORPUSCULAR VOLUME 87.6 fL (80.0-100.0); MEAN PLATELET VOLUME 11.2 fL (7.4-11.0); MONOCYTES # (AUTO) 0.6 x10^3/uL (0.3-0.8); MONOCYTES % (AUTO) 8.9 % (0.0-13.0); NEUTROPHILS # (AUTO) 3.4 x10^3/uL (2.2-4.8); NEUTROPHILS % (AUTO) 52.6 % (42.0-75.0); PLATELET COUNT 172 X10^3/uL (150.0-450.0); RED CELL DISTRIBUTION WIDTH 14.7 % (11.6-16.5); WHITE BLOOD COUNT 6.4 X10^3/uL (3.6-10.0)
[2025-02-26 05:56] LABS: ALANINE AMINOTRANSFERASE 54 Units/L (12-78); ALBUMIN 3.9 g/dL (3.4-5.0); ALKALINE PHOSPHATASE 101 Units/L (46-116); ASPARTATE AMINO TRANSFERASE 32 Units/L (15-37); BLOOD UREA NITROGEN 4 mg/dL (7-18); CALCIUM 8.7 mg/dL (8.5-10.1); CARBON DIOXIDE 31.2 mmol/L (21-32); CHLORIDE 104 mmol/L (98-107); CREATININE 0.88 mg/dL (0.55-1.02); GLUCOSE 95 mg/dL (65-99); POTASSIUM 3.2 mmol/L (3.5-5.1); SODIUM 143 mmol/L (136-145); TOTAL PROTEIN 7.4 g/dL (6.4-8.2); eGFR NON BLACK RACES > 60 (>60)
[2025-02-26] MEDS ORDERED: CONSULT PHARMACY - POTASSIUM & MAGNESIUM XX SCH (07:00)
[2025-02-26] MEDS: NS 1,000 ML IV 600 ML IV PRN (08:50)
[2025-02-26] MEDS: DIPRIVAN VIAL 200 ML IVP PRN (09:00)
[2025-02-26] MEDS: XYLOCAINE 2 % (PLAIN) INJ PRN (09:00)
[2025-02-26] MEDS: DIPRIVAN VIAL 20 ML ONE (09:52)
[2025-02-26] MEDS: NS 1,000 ML IV 1,000 ML ONE (09:52)
[2025-02-26] MEDS: K-DUR TAB 20 MEQ PO SCH (10:15)
[2025-02-26] MEDS: NOZIN NASAL SANITIZER TP SCH (10:16)
[2025-02-26] MEDS: FLAGYL IV PREMIX 500 MG BAG 500 MG/100 ML BAG IV SCH (13:34)
[2025-02-26] MEDS: KLONOPIN TAB 0.5 MG PO PRN (23:04)
[2025-02-27 04:10] VITALS: O2SAT 97
[2025-02-27 05:40] LABS: BASOPHILS # (AUTO) 0.1 X10^3/uL (0.0-0.1); EOSINOPHILS # (AUTO) 0.1 x10^3/uL (0.0-0.2); EOSINOPHILS % (AUTO) 2.1 % (0.9-2.9); HEMATOCRIT 37.9 % (36.0-47.0); HEMOGLOBIN 12.9 g/dL (12.0-16.0); LYMPHOCYTES % (AUTO) 44.8 % (21.0-51.0); MEAN CORPUSCULAR HEMOGLOBIN 29.6 pg (27.0-34.0); MEAN CORPUSCULAR VOLUME 87.1 fL (80.0-100.0); MEAN PLATELET VOLUME 10.7 fL (7.4-11.0); MONOCYTES # (AUTO) 0.5 x10^3/uL (0.3-0.8); MONOCYTES % (AUTO) 7.7 % (0.0-13.0); NEUTROPHILS # (AUTO) 2.9 x10^3/uL (2.2-4.8); NEUTROPHILS % (AUTO) 43.4 % (42.0-75.0); PLATELET COUNT 145 X10^3/uL (150.0-450.0); RED BLOOD COUNT 4.36 X10^6/uL (3.5-5.4); RED CELL DISTRIBUTION WIDTH 14.9 % (11.6-16.5); WHITE BLOOD COUNT 6.7 X10^3/uL (3.6-10.0)
[2025-02-27 05:51] LABS: ALANINE AMINOTRANSFERASE 37 Units/L (12-78); ALBUMIN 3.1 g/dL (3.4-5.0); ALKALINE PHOSPHATASE 91 Units/L (46-116); ASPARTATE AMINO TRANSFERASE 15 Units/L (15-37); BLOOD UREA NITROGEN 7 mg/dL (7-18); CALCIUM 8.6 mg/dL (8.5-10.1); CARBON DIOXIDE 30.4 mmol/L (21-32); CHLORIDE 106 mmol/L (98-107); COR CA(FOR HYPOALB) 9.3 mg/dL (8.5-10.1); CREATININE 0.68 mg/dL (0.55-1.02); GLUCOSE 104 mg/dL (65-99); POTASSIUM 3.6 mmol/L (3.5-5.1); SODIUM 144 mmol/L (136-145); TOTAL PROTEIN 6.1 g/dL (6.4-8.2); eGFR NON BLACK RACES > 60 (>60)
[2025-02-27] MEDS ORDERED: CONSULT PHARMACY - POTASSIUM & MAGNESIUM XX SCH (08:00)
[2025-02-27] MEDS: K-DUR TAB 20 MEQ PO SCH (08:24)
[2025-02-27 10:01] VITALS: BP 127/61; PULSE 68; RESP 18; TEMP 97.7
--- NOTE | 2025-02-27 12:13 | CT ---
EXAM:ABDOMEN/PELVIS W/O CONHISTORY:PELVIC ABCESS; HX: VA, CAD SX: GB, HYSTERECTOMYCOMPARISON:February 24, 2025TECHNIQUE:Multiple axial images of the abdomen and pelvis were obtained from the lung bases to the pubic symphysis without the administration of IV contrast. Dose reduction techniques including Automated Exposure Control (AEC) and adjustment of mA and kV were utilized.FINDINGS:The visualized portions of the lung bases are unremarkable. The solid organs are unchanged in their noncontrasted appearance. Areas nonobstructive left-sided renal stone again noted.. The gallbladder is unremarkable in its CT appearance . No significant mesenteric lymphadenopathy or stranding can be observed. No free fluid or free air is seen within the abdomen. No bowel wall thickening or bowel dilatation is present. The colon is unremarkable. Specifically, there is no diverticulosis noted within the sigmoid colon. The appendix appears normal in its size. The previously noted fluid collection between the urinary bladder in the rectum there is nearly completely resolved although evaluation is limited without the use of contrast. The urinary bladder is grossly unremarkable. The bony structures are grossly intact.IMPRESSION:Near-complete resolution of previously noted fluid collection in the pelvis as above otherwise stable exam.THIS IS AN ELECTRONICALLY VERIFIED FINAL REPORT02/27/2025 12:09 PM - Electronically signed by David Ray MD
== END 2025-02-27 11:30 | disposition home or self-care (01) ==
LOC: ICU 14:05 → ER 14:05 → ICU 17:23
PROVIDERS: ADMIT Surgery; ATTEND Surgery
DX: K31.89 Other diseases of stomach and duodenum; R10.2 Pelvic and perineal pain; K61.1 Rectal abscess; E87.6 Hypokalemia; R31.0 Gross hematuria; E83.42 Hypomagnesemia; K52.89 Other specified noninfective gastroenteritis and colitis; Z16.11 Resistance to penicillins; Z16.29 Resistance to other single specified antibiotic; N39.0 Urinary tract infection, site not specified; B96.29 Other Escherichia coli [E. coli] as the cause of diseases classified elsewhere; Z16.19 Resistance to other specified beta lactam antibiotics; I25.10 Atherosclerotic heart disease of native coronary artery without angina pectoris; E87.0 Hyperosmolality and hypernatremia; E03.8 Other specified hypothyroidism; Z87.442 Personal history of urinary calculi; F41.8 Other specified anxiety disorders; E78.5 Hyperlipidemia, unspecified; R74.01 Elevation of levels of liver transaminase levels